=== PATIENT | female | born 2000 | race Hispanic/Latino ===

== ENCOUNTER 2025-05-06 02:35 | Inpatient (IN) | payer SELFPAY ==
[2025-05-06] VITALS (55 sets, daily range): BP systolic 95–144; BP diastolic 52–95; PULSE 52–105; RESP 12–20; TEMP 36.5–37.2; O2SAT 84–100
[2025-05-06] MEDS: Lactated Ringers 1,000 ML 999 ML IV (03:05)
--- NOTE | 2025-05-06 03:06 | HP.PCM.OB_ITS ---
HPI - General General Date of Admission: 05/06/25 HPI Narrative LAWRENCE RANGEL, is a 25 F @ 40.5 weeks with limited PNC, saw nereyda [place] approximately 5 times - did have lab work and Anatomy us done there- was seen earlier in day for ctx- told she was in early labor and to go [facility] as they have more services for her and baby when her contraction get to be 2-5 min. PFSH PFSH Medical History no medical history Allergy/AdvReac Type Severity Reaction Status Date / Time No Known Allergies Allergy Verified 05/06/25 02:33 Surgical History no surgical history NST FHR Rate Baby A Baseline: 135 Variability:: Moderate Accelerations:: 15 x 15 Decelerations:: None NST Reactive:: Yes FHR Category:: Category I Uterine Activity:: q4-5min Vital Signs Vital Signs Vital Signs: 05/06/25 02:29 05/06/25 02:29 05/06/25 02:29 Pulse Rate 56 L Blood Pressure 138/83 H BP Systolic 138 BP Diastolic 83 Pulse Ox 98 05/06/25 02:29 Pulse Rate 65 Blood Pressure BP Systolic BP Diastolic Pulse Ox Physical Exam Narrative limited bedside ultrasound: Vertex- no gross abnormalities noted VE: 7/80-90/-2 palpable Bag of water Const alert and oriented x3 General Appearance: cooperative HEENT normocephalic GI GI Narrative: Gravid, non tender to palpation. OB / External & Speculum: external exam normal Extremity normal to inspection Skin no rashes or lesions noted Neuro oriented x3 and CN's II-XII intact bilaterally Psych Appearance: grossly normal Labs Labs Labs: No Data to Display Assessment & Plan (1) Limited care: (2) 40 weeks gestation of : (3) Language barrier: PLAN: Plan Admit to L&D Montior FHR/TOCO Epidural if requested for pain Monitor VS Anticipate Labs state pending from Nereyda but we don't have PN labs present Co-mangement with Ekaterina Patricia CNM EFW <[id number]
[2025-05-06 03:21] LABS: Absolute Lymphocyte Count 2.06 X10^3/uL (0.83-4.51); Absolute Neutrophil Count 5.4 X10^3/uL (2.0-7.7); Basophil# 0.05 X10^3/uL; Basophil% 0.6 % (0-1); Eosinophil# 0.13 X10^3/uL; Eosinophils% 1.6 % (0-5); Hematocrit 35.8 % (37-47); Hemoglobin 11.3 g/dL (12.0-15.0); Lymphocyte # 2.06 X10^3/ul (0.83-4.51); Lymphocyte % 24.8 % (19-41); Mean Corp Hgb Conc 31.6 g/dL (32-36); Mean Platelet Vol. 10.6 fl (6.2-12.0); Monocyte# 0.57 X10^3/uL; Monocyte% 6.9 % (0-10); NRBC Flagged by Analyzer 0.5 % (0-5); Neutrophil # 5.35 X10^3/uL (2.7-7.7); Neutrophil % 64.5 % (47-70); Platelet Count 239 K/mm3 (150-450); RBC Distribution Width CV 19.2 % (11.6-14.6); RBC Distribution Width SD 50.5 fl (35.1-43.9); Red Blood Count 4.71 M/mm3 (4.2-5.4); White Blood Count 8.3 K/mm3 (4.4-11.0)
[2025-05-06] MEDS: Lactated Ringers 1,000 ML 200 ML IV ×2 (04:10→09:14)
[2025-05-06 04:12] LABS: Glucose 82 mg/dL (70-99)
[2025-05-06] MEDS: fentaNYL-bupivacaine (epidural) 100 ML BAG EPIDURAL (04:12)
[2025-05-06 04:19] LABS: Syphilis Antibodies Nonreactive (Nonreactive)
[2025-05-06 04:36] LABS: Group B Strep DNA By PCR Negative (Negative); Internal Control PASS; Probe Check PASS; Specimen Processing Control PASS
[2025-05-06 05:13] LABS: Hepatitis C Antibody Nonreactive (Nonreactive)
[2025-05-06 05:53] LABS: Hemoglobin A1c 5.8 % (<=5.6)
[2025-05-06 06:01] LABS: Mucous, Urine 0 SEEN /hpf (<or=2+); Red Blood Cells-Urine 0 SEEN /hpf (0-5)
[2025-05-06 06:03] LABS: Color, Urine Straw (Yellow); Glucose, Dipstick Normal (Normal); Ketone-Dipstick Negative (Negative); Leukocyte Esterase-Dipstick Negative /ul (Negative); Nitrite-Dipstick Negative (Negative); Occult Blood-Urine Negative /ul (Negative); Protein-Dipstick 30 mg/dl (Negative); Specific Gravity, Urine 1.005 (1.002-1.030); Urine Bilirubin Dipstick Negative (Negative); Urine Clarity Clear (Clear); Urine Urobilinogen Normal (Normal)
[2025-05-06 06:09] LABS: HIV Nonreactive (Nonreactive); Hepatitis B Surface Antigen Nonreactive (Nonreactive); Rubella IgG REAC (Nonreactive)
[2025-05-06 06:34] LABS: AST(SGOT) 36 U/L (<=31); Alanine Aminotransfer ALT/SGPT 28 U/L (<=34); Albumin, Serum 3.4 g/dL (3.5-5.0); Alkaline Phosphatase 457 U/L (35-104); Anion Gap 17 (5-15); BUN 10 mg/dL (4-19); BUN/Creat Ratio 14.7 RATIO (10-20); Calcium,Total 8.7 mg/dL (7.6-11.0); Chloride 105 mmol/L (98-108); Creatinine, Serum 0.65 mg/dL (0.70-1.20); EST Glomerular Filtration Rate 126 (>60); Globulin 3.6 g/dL (2.2-4.2); Glucose 82 mg/dL (70-99); Potassium 4.2 mmol/L (3.3-5.1); Protein, Total 7.1 g/dL (5.9-8.4); Sodium Level 135 mmol/L (133-145); Total Bilirubin < 0.15 mg/dL (0.00-1.30)
[2025-05-06 06:38] LABS: Bacteria RARE /hpf (None Seen); Squamous Epithelial Cells - UA 0-5 SEEN /hpf (5-10); White Blood Cells 0-5 SEEN /hpf (0-5)
[2025-05-06 06:45] LABS: Amphetamine Urine NEGATIVE (<1000 ng/mL); Barbiturate Urine NEGATIVE (< 200 ng/mL); Benzodiazepine Urine NEGATIVE (< 200 ng/mL); Buprenorphine Urine NEGATIVE (< 200 ng/mL); Cocaine Urine NEGATIVE (< 300 ng/mL); Fentanyl, Urine NEGATIVE; Methadone Urine NEGATIVE (< 300 ng/mL); Opiates Urine NEGATIVE (< 300 ng/mL); Oxycodone, Urine NEGATIVE (< 100 ng/mL); PCP Urine NEGATIVE (< 25 ng/mL); THC Urine NEGATIVE (< 50 ng/mL)
--- NOTE | 2025-05-06 08:10 | PCM.PN.OB ---
Subjective Subjective On hands and knees in bed, laboring down. Pushing for about an hour and no descent of head. Epidural for pain relief. Objective Data Objective Data Vital Signs: Vital Signs Temp Pulse Resp BP Pulse Ox 98.8 F 60 16 128/63 H 84 05/06/25 07:24 05/06/25 07:24 05/06/25 07:24 05/06/25 07:24 05/06/25 05:33 Intake & Output: Intake and Output for Last 24 Hours 05/04/25 05/05/25 05/06/25 23:59 23:59 23:59 Intake Total 1000 / 1000 Output Total 450 / 450 Balance 550 / 550 Lab / Micro Data 05/06/25 02:55 05/06/25 02:55 Labs: Laboratory Results - last 24 hr 05/06/25 02:55: WBC 8.3, RBC 4.71, Hgb 11.3 L, Hct 35.8 L, MCV 76.0 L, MCH 24.0 L, MCHC 31.6 L, RDW Std Deviation 50.5 H, RDW Coeff of Morena 19.2 H, Plt Count 239, MPV 10.6, Immature Gran % (Auto) 1.600 H, Neut % (Auto) 64.5, Lymph % (Auto) 24.8, [place] % (Auto) 6.9, Eos % (Auto) 1.6, Baso % (Auto) 0.6, Absolute Neuts (auto) 5.4, Absolute Lymphs (auto) 2.06, Nucleated RBC % 0.5, Sodium 135, Potassium 4.2, Chloride 105, Carbon Dioxide 14.0 L, Anion Gap 17 H, BUN 10, Creatinine 0.65 L, Est GFR (MDRD) Non-Af 126, BUN/Creatinine Ratio 14.7, Glucose 82 05/06/25 02:55: Glucose 82, Hemoglobin A1c 5.8 H, Calcium 8.7, Total Bilirubin < 0.15, AST 36 H, ALT 28, Alkaline Phosphatase 457 H, Total Protein 7.1, Albumin 3.4 L, Globulin 3.6, Albumin/Globulin Ratio 1.0, Syphilis Total Ab Nonreactive 05/06/25 02:55: Syphilis Total Ab Cancelled, Hep Bs Antigen Nonreactive, Hepatitis C Antibody Nonreactive, HIV 1&2 Antibody Nonreactive, Rubella IgG Antibody REAC, Blood Type O POSITIVE, Antibody Screen NEGATIVE 05/06/25 03:15: Group B Strep DNA Negative, Specimen Comment Not Reportable 05/06/25 05:50: Urine Color Straw, Urine Clarity Clear, Urine pH 7.0, Ur Specific [place] 1.005, Urine Protein 30 H, Urine Glucose (UA) Normal, Urine Ketones Negative, Urine Occult Blood Negative, Urine Nitrite Negative, Urine Bilirubin Negative, Urine Urobilinogen Normal, Ur Leukocyte Esterase Negative, Urine RBC 0 SEEN, Urine WBC 0-5 SEEN, Ur Squamous Epith Cells 0-5 SEEN, Urine Bacteria RARE, Urine Mucus 0 SEEN, Urine Opiates Screen NEGATIVE, U Buprenorphine Qual NEGATIVE, Ur Oxycodone Screen NEGATIVE, Urine Methadone Screen NEGATIVE, Urine Fentanyl Screen NEGATIVE, Ur Barbiturates Screen NEGATIVE, Ur Phencyclidine Scrn NEGATIVE, Ur Amphetamines Screen NEGATIVE, U Benzodiazepines Scrn NEGATIVE, Urine Cocaine Screen NEGATIVE, U Cannabinoids Screen NEGATIVE, Ur Drug Screen Comment Micro: Microbiology 05/06/25 05:50 Urine, Clean Catch Chlamydia/Neisseria (PCR) - Final Physical Exam Manual OB Exam: presentation cephalic, dilated 10, effaced 100, station -1 (0 to -1) and other AROM clear fluid NST FHR Rate Baby A Baseline: 135 Variability:: Moderate Accelerations:: None Decelerations:: Variable and Prolonged FHR Category:: Category II Uterine Activity:: every 2-4 minutes Assessment & Plan (1) Language barrier: (2) Limited care: (3) 40 weeks gestation of : (4) Category II heart rate tracing during labor and delivery: PLAN: Plan 1) Positional changes for prolonged heart rate decelerations 2) AROM clear fluid 3) FSE placed 4) Continue with expectant management and pushing efforts 5) notified of patient above assessment, status, and plan.
[2025-05-06] MEDS: LACTATED RINGERS 500 ML 999 ML IV (08:56)
--- NOTE | 2025-05-06 09:01 | PN.OBGYN_ITS ---
Subjective Subjective On left side pushing in bed, attempted to turn to right side and prolonged heart rate deceleration to 65. Position change to hands and knees with slow recovery. Objective Data Objective Data Vital Signs: Vital Signs Temp Pulse Resp BP Pulse Ox 98.7 F 63 16 108/52 L 97 05/06/25 08:28 05/06/25 08:33 05/06/25 08:28 05/06/25 08:33 05/06/25 08:28 Intake & Output: Intake and Output for Last 24 Hours 05/04/25 05/05/25 05/06/25 23:59 23:59 23:59 Intake Total 1000 / 1000 Output Total 450 / 450 Balance 550 / 550 Lab / Micro Data 05/06/25 02:55 05/06/25 02:55 Labs: Laboratory Results - last 24 hr 05/06/25 02:55: WBC 8.3, RBC 4.71, Hgb 11.3 L, Hct 35.8 L, MCV 76.0 L, MCH 24.0 L, MCHC 31.6 L, RDW Std Deviation 50.5 H, RDW Coeff of More[place] 19.2 H, Plt Count 239, MPV 10.6, Immature Gran % (Auto) 1.600 H, Neut % (Auto) 64.5, Lymph % (Auto) 24.8, [place] % (Auto) 6.9, Eos % (Auto) 1.6, Baso % (Auto) 0.6, Absolute Neuts (auto) 5.4, Absolute Lymphs (auto) 2.06, Nucleated RBC % 0.5, Sodium 135, Potassium 4.2, Chloride 105, Carbon Dioxide 14.0 L, Anion Gap 17 H, BUN 10, C reatinine 0.65 L, Est GFR (MDRD) Non-Af 126, BUN/Creatinine Ratio 14.7, Glucose 82 05/06/25 02:55: Glucose 82, Hemoglobin A1c 5.8 H, Calcium 8.7, Total Bilirubin < 0.15, AST 36 H, ALT 28, Alkaline Phosphatase 457 H, Total Protein 7.1, Albumin 3.4 L, Globulin 3.6, Albumin/Globulin Ratio 1.0, Syphilis Total Ab Nonreactive 05/06/25 02:55: Syphilis Total Ab Cancelled, Hep Bs Antigen Nonreactive, Hepatitis C Antibody Nonreactive, HIV 1&2 Antibody Nonreactive, Rubella IgG Antibody REAC, Blood Type O POSITIVE, Antibody Screen NEGATIVE 05/06/25 03:15: Group B Strep DNA Negative, Specimen Comment Not Reportable 05/06/25 05:50: Urine Color Straw, Urine Clarity Clear, Urine pH 7.0, Ur Specific [place] 1.005, Urine Protein 30 H, Urine Glucose (UA) Normal, Urine Ketones Negative, Urine Occult Blood Negative, Urine Nitrite Negative, Urine Bilirubin Negative, Urine Urobilinogen Normal, Ur Leukocyte Esterase Negative, Urine RBC 0 SEEN, Urine WBC 0-5 SEEN, Ur Squamous Epith Cells 0-5 SEEN, Urine Bacteria RARE, Urine Mucus 0 SEEN, Urine Creatinine 49.20, Urine Opiates Screen NEGATIVE, U Buprenorphine Qual NEGATIVE, Ur Oxycodone Screen NEGATIVE, Urine Methadone Screen NEGATIVE, Urine Fentanyl Screen NEGATIVE, Ur Barbiturates Screen NEGATIVE, Ur Phencyclidine Scrn NEGATIVE, Ur Amphetamines Screen NEGATIVE, U Benzodiazepines Scrn NEGATIVE, Urine Cocaine Screen NEGATIVE, U Cannabinoids Screen NEGATIVE, Ur Drug Screen Comment Micro: Microbiology 05/06/25 05:50 Urine, Clean Catch Chlamydia/Neisseria (PCR) - Final NST FHR Rate Baby A Baseline: 140 Variability:: Minimal Accelerations:: None Decelerations:: Variable and Prolonged FHR Category:: Category II Uterine Activity:: Every 2-3 minutes Assessment & Plan (1) Category II heart rate tracing during labor and delivery: (2) Language barrier: (3) 40 weeks gestation of : (4) Limited care: (5) Prolonged heart deceleration: (6) intolerance to labor, delivered, current hospitalization: PLAN: Plan 1) Consulted due to prolonged heart rate decelerations, intolerance of labor and unable to continue with positional changes. station remained at 0 to +1. Have been unable to get strong pushing efforts due to intolerance. Decision for primary section. 2) Azithromycin 500mg IVPB and Ancef 2g IVPB 3) TXA 1g 4) Anesthesia notified
[2025-05-06 09:21] LABS: Protein, Urine (Random) 25.4 mg/dL (0.0-12.0); Protein:Creat Ratio 516 mg/g CRE (0-200)
[2025-05-06] MEDS: Cefazolin 2 GM in 0.9% Normal Saline (100mL Bag) 100 ML IV (09:30)
[2025-05-06] MEDS: TRANEXAMIC ACID 1,000 MG in 0.9% Normal Saline (100mL Bag) 100 ML 440 MG IV (09:30)
[2025-05-06] MEDS: Azithromycin 500 MG in 0.9% Normal Saline (250mL Bag) 250 ML 250 MG IV (09:35)
--- NOTE | 2025-05-06 10:21 | EX.PCM.OBRPT ---
Maternal Data Information Gestational age: 40.5 weeks Operative Report (OB) Details Procedure Type: low transverse Date of Procedure: 05/06/25 Procedure Start Time: :42 Procedure Stop Time: 10:21 Time of Delivery: 09:45 Pre-Operative Diagnosis: Failure to Progress and Distress Post-Operative Diagnosis: Same as Pre-operative diagnosis Classification: ALYSSA Type of Anesthesia: Epidural Special Medications: TXA Antibiotic Given: Ancef 2 grams IV x1 and Zithromax 500 mg/5 mL X1 Drain: Lemus to straight drain Estimated Blood Loss: 700 Fluids Replaced: 1000 Findings Description of surgery: After informed consent was obtained the patient was taken the operating room. She was then placed in the supine position. She was prepped and draped in the normal sterile fashion. Epidural Anesthesia was found to be adequate. At this time a Pfannenstiel skin incision was made with a knife was carried down to the underlying layer of the fascia. The fascial incision was then extended laterally using bradley scissor. Attention was then turned to the superior aspect of the fascial edge was grasped with 2 straight [place] clamps tented up and the rectus muscle dissected off blunty. Rectus muscles were then in the midline bluntly and peritoneum was entered bluntly. Gentle opposing traction was placed. At this time the vesicouterine peritoneum was identified. Scalpel was used to make a uterine incision in a low transverse fashion. The uterus was then entered bluntly gentle opposing traction was placed to extend this incision. 's head was brought to the uterine incision was delivered atraumatically. was vigorous at delivery and delayed cord clamping approximately 30 seconds performed. Cord was clamped and cut infant was handed to the waiting nursery team. The Placenta was removed from the uterus. The uterus was then removed from the abdominal cavity. The uterus was cleared of all clots and debris using a lap. At this time the uterine incision was reapproximated using #1 Vicryl in a running locked fashion. Extension down the left side- repaired with 1-0 vicryl. Hemostasis was appreciated. Posterior cul-de-sac was then cleared of all clots and debris. Uterus was placed back in the abdominal cavity. Gutters were cleared of all clots and debris. Uterine incision was reevaluated and noted to be of good hemostasis. Hemoblast placed. At this time the peritoneum was grasped with Kellys reapproximated using #2 Vicryl suture in a running fashion. Fascia was then reapproximated using #1 Vicryl in a running fashion. Subcu layer was irrigated with NS, reapproximated with #2 0 plain gut suture in an interrupted fashion. Subcu layer was closed using 4-0 Monocryl in a subcu fashion. Dry sterile dressing was applied. Instrument lap needle count correct ?2. Anticipated normal postoperative course. Surgical findings: normal tubes and ovaries Presentation: Vertex Amniotic Membrane Rupture Type: Artificial Amniotic Fluid Description: Clear Placental Delivery Description: Expressed Placenta Disposition: [facility] Specimen collected: No Cord Vessel Description: 3 Vessels Cord Entanglement: None A gender: Male (1 minute): 9 (5 minute): 9 Delayed Cord Clamping: Yes Him Manager crop duster helper: Yes Him Manager: Gita Arauz Tasks completed by printer floor covering assistant: Opening & closing, Dissecting tissue and Retracting Additional administrative assistant?: No Complications Complications: No
[2025-05-06] MEDS: Oxytocin 15 Units/NS 250ml 15 UNITS/250 ML IV.SOLN 83 UNITS IV (10:35)
[2025-05-06] MEDS: Ketorolac 30 MG/ML Syringe IV ×3 (10:54→23:09)
[2025-05-06] MEDS: 0.9% Saline Lock 10 ML Syringe IV (10:54)
[2025-05-06] MEDS: Acetaminophen 500 MG Tablet 1000 MG PO ×3 (11:42→23:09)
[2025-05-06] MEDS: Lactated Ringers 1,000 ML 100 ML IV (14:10)
[2025-05-07 00:03] VITALS: BP 112/60; PULSE 63; RESP 16; TEMP 36.8; O2SAT 99
[2025-05-07 04:02] VITALS: BP 106/57; PULSE 77; RESP 18; TEMP 36.4; O2SAT 100
[2025-05-07] MEDS: Ketorolac 30 MG/ML Syringe IV (04:45)
[2025-05-07] MEDS: Acetaminophen 500 MG Tablet 1000 MG PO ×4 (04:46→23:04)
[2025-05-07 05:14] LABS: Hematocrit 26.4 % (37-47); Hemoglobin 8.5 g/dL (12.0-15.0); Mean Corp Hgb Conc 32.2 g/dL (32-36); Mean Corpuscular Hgb 24.5 pg (27.0-32.0); Mean Corpuscular Volume 76.1 fL (81-99); Mean Platelet Vol. 10.4 fl (6.2-12.0); Platelet Count 219 K/mm3 (150-450); RBC Distribution Width CV 19.3 % (11.6-14.6); RBC Distribution Width SD 50.7 fl (35.1-43.9); Red Blood Count 3.47 M/mm3 (4.2-5.4); White Blood Count 12.2 K/mm3 (4.4-11.0)
[2025-05-07 08:00] VITALS: BP 97/61; PULSE 99; RESP 16; TEMP 36.8; O2SAT 99
--- NOTE | 2025-05-07 08:52 | PN.OBGYN_ITS ---
Subjective Subjective Patient doing well. Having some abdominal pain that is controlled. Has not been ambulating much. Had dinner last night without N/V. No CP, lightheadedness, dizziness but not getting out of bed often. Objective Data Objective Data Vital Signs: Vital Signs Temp Pulse Resp BP Pulse Ox O2 Del Method 97.6 F L 77 18 106/57 L 100 Room Air 05/07/25 04:02 05/07/25 04:02 05/07/25 04:02 05/07/25 04:02 05/07/25 04:02 05/07/25 04:02 Oxygen Delivery Method Room Air Intake & Output: Intake and Output for Last 24 Hours 05/05/25 05/06/25 05/07/25 23:59 23:59 23:59 Intake Total 3650.00 / 3650.00 Output Total 2700 / 2700 Balance 950.00 / 950.00 Lab / Micro Data 05/07/25 04:50 05/06/25 02:55 Labs: Laboratory Results - last 24 hr 05/06/25 05:50: U Random Total Protein 25.4 H, Urine Creatinine 49.20, P rotein/Creatinin Ratio 516 H 05/07/25 04:50: WBC 12.2 H, RBC 3.47 L, Hgb 8.5 L, Hct 26.4 L, MCV 76.1 L, MCH 24.5 L, MCHC 32.2, RDW Std Deviation 50.7 H, RDW Coeff of Morena 19.3 H, Plt Count 219, MPV 10.4 Micro: Microbiology 05/06/25 05:50 Urine, Clean Catch Chlamydia/Neisseria (PCR) - Final Physical Exam Const alert and no apparent distress General Appearance: comfortable GI soft to palpation GI Narrative: ATTP, softly distended, dressing c/d/i, non acute Extremity normal to inspection and no calf tenderness Assessment & Plan (1) Delivery by section: PLAN: POD#1 s/p C/S. Doing well. Pain controlled. Encouraged ambulation today. Possible d/c home tomorrow. (2) Acute blood loss anemia: PLAN: Asymptomatic but not ambulating often. Repeat CBC in AM.
[2025-05-07] MEDS: Senna/Docusate Sodium 1 Tablet PO (11:06)
--- NOTE | 2025-05-07 11:43 | CASEMGMT ---
Social Work Assessment Labor and Delivery Unit Patient Address: [address] [place] [address] Phone number: [phone] Date of Referral: 05/06/25 Time of Referral:? 1147 Referred By: Dr. Tang Date of Intervention: ??05/07/25 Time of Intervention:? 1000 Reason for Referral:?resources Sw completed chart review and acknowledges social work consult. Alvarado presented to bedside and using iPad deaf interpreter, Geremias (ID: [id number]) sw introduced self to mother of baby (MOB- Sara) and father of baby (FOB- George Clemons). Sw explained reason for sw involvement and completed psychosocial assessment. History obtained from: medical records, MOB and FOB Household composition: MOB states that she and FOB live together with two of FOB's siblings. [place] baby to be included in residence when ready for discharge. Parents deny any problems with the home, stating that it is safe and secure. FOAndrea does report that the home is listed for sale by the biometrics consultant, if it sells they will have one month to find a new place to live. EDA states that he is not worried about this, as there are other places for them to rent that are safe and have enough space. Patient's parent/guardian status:? ?Parents report that they have been together for almost two years after meeting each other online. No concerns reported of domestic violence or intimate partner violence. baby is first baby for each parent. Medical History: ?OSWALDO is 25 year old female who is 1, para 0- now 1 following labor and delivery of . OSWALDO attended only 5 appointments during her with [facility]. When asked about this, she states that she only attended 5 because she is self pay and could not afford to go to more. Because of this concern, sw explained the importance of ensuring that their baby attends all of his scheduled dredge operator/ well check appointments. Parents express understanding. OSWALDO presented to hospital in active labor and required delivery for baby on 05/06/25 at 40 weeks gestation. Baby boy, named Geremias Alamo, was born weighing 6lb 15oz with apgars of 9 and 9 at one and five minutes of life, respectfully. OSWALDO is breast feeding and reports that it is going well. Parents have not yet decided on a dredge operator yet- but are aware they will need to do so prior to discharge. Educational Status:? Both parents attended school in [facility]. They deny problems with reading, learning or comprehension, however the language is a barrier to them. Financial Status: EDA is employed outside of the home. He works as a building construction superintendent. OSWALDO does not work and will be a stay at home mom with the baby. Supplies:?? All necessary baby supplies obtained, including: car seat, safe sleep space, clothes, diapers and wipes. Childcare/Caregiver(s):? MOB reports that she will be the primary caregiver to baby, along with FOB when he is not working. Transportation:?? FOAndrea states that he has work privileges to drive, and his brother has a vehicle that gets him to work and MOB to appointments. Programs/Agencies Involved: ???Parents deny being connected to any community agencies that assist them financially. Alvarado explained that alvarado would reach out to Maile Davis at [facility] to ensure that she gets connected with them prior to discharge to start the process of applying for Medicaid insurance for baby. Parents express understanding. Children Services/Legal Issues:??? No history of children services involvement, no issues or concerns warranting referral to be made at this time. Behavioral Health Issues: ??Mental Health History:?Both parents deny history of anxiety or depression, as well as any other mental health diagnoses. ?? Substance Use History: Parents deny substance use prior to and during . ?? Family History:??Parents deny family history of substance use or significant mental health diagnoses. ??? Drug Screens: ?Drug screen was negative on admission for all substances. Family/Social Stressors:? Parents deny any problems, stressors or concerns at this time. Support Systems: MOB states that she can talk to EDA, as well as the of the design architect at the [employer] that they attend on Sundays. Depression/Shaken Baby/Safe Sleeping:? Sw educated parents on signs and symptoms of baby blues and depression and anxiety. Parents express understanding. MOB states that she feels happy since delivering baby, and denies feeling sad. FOAndrea states that if she were to struggle during this period he would be able to recognize that and would know how to help her. Sw educated parents on shaken baby prevention and ABCs of safe sleep. Parents express understanding. ASSESSMENT:? MOB and baby admitted following labor and delivery. MOB delivered baby via unexpected and is staying one more day to help heal and get nursing help. MOB and FOB were observed to have a close relationship. MOB often sought support from FOB throughout conversation. MOB and FOB deny mental health history, and deny substance use. FOB is employed outside of the home and is the sole financial provider for the family (MOB and FOB). Parents report they have access to transportation and deny food insecurities. MOB and FOB have all necessary baby supplies for baby and natural supports in place. PLAN:? No other services requested or indicated. MOB and baby to be discharged when medically ready. Parents were provided literature regarding: signs and symptoms of baby blues and mood and anxiety disorders, Help Me Grow, shaken baby prevention, ABCs of safe sleep and a list of county resources that are available for them should any needs present themselves. Radha May, ACCOUNTING COORDINATOR, MANAGER TRANSPORTATION
[2025-05-07 14:00] VITALS: BP 133/67; PULSE 84; RESP 16; TEMP 36.6; O2SAT 100
[2025-05-07] MEDS: Ibuprofen 600 MG Tablet PO ×2 (16:55→23:04)
[2025-05-07 19:41] VITALS: BP 121/62; PULSE 81; RESP 16; TEMP 36.4; O2SAT 98
[2025-05-08 02:04] VITALS: BP 116/72; PULSE 97; RESP 16; TEMP 36.3; O2SAT 99
[2025-05-08] MEDS: Acetaminophen 500 MG Tablet 1000 MG PO ×2 (05:10→10:54)
[2025-05-08] MEDS: Ibuprofen 600 MG Tablet PO ×2 (05:10→10:55)
[2025-05-08 06:08] LABS: Hematocrit 25.3 % (37-47); Hemoglobin 8.3 g/dL (12.0-15.0); Mean Corp Hgb Conc 32.8 g/dL (32-36); Mean Corpuscular Hgb 24.9 pg (27.0-32.0); Mean Corpuscular Volume 75.7 fL (81-99); Platelet Count 245 K/mm3 (150-450); RBC Distribution Width CV 19.5 % (11.6-14.6); RBC Distribution Width SD 52.1 fl (35.1-43.9); Red Blood Count 3.34 M/mm3 (4.2-5.4); White Blood Count 12.8 K/mm3 (4.4-11.0)
[2025-05-08 08:00] VITALS: BP 108/58; PULSE 90; RESP 16; TEMP 36.4; O2SAT 98
[2025-05-08] MEDS: Senna/Docusate Sodium 1 Tablet PO (10:55)
--- NOTE | 2025-05-08 12:16 | PCM.DC.SUM ---
Providers Date of Admission: 05/06/25 Primary Care Physician: No Primary Care Phys Reason For Visit: LABOR Diagnosis Discharge Diagnosis (1) Delivery by section: Status: Acute (2) Acute blood loss anemia: Status: Acute Code(s): D62 - Acute posthemorrhagic anemia Medications at Discharge Home Medications acetaminophen 500 mg tablet (Acetaminophen Extra Strength) 1,000 mg (2 x 500 mg) PO Q6H PRN fever or pain 20 days #90 tabs 05/08/25 ferrous sulfate 325 mg (65 mg iron) tablet (FeroSul) 325 mg PO QODAY 60 days #30 tabs 05/08/25 ibuprofen 600 mg tablet 600 mg PO Q6H PRN Pain 20 days #60 TABLETS 05/08/25 oxycodone 5 mg tablet 5 mg PO Q8H PRN severe pain 7 days #10 TABLETS 05/08/25 Hospital Course Operations - (primary c/s) Procedures None Summary of Care Provided Minutes Spent on Discharge: 17 Hospital Course: 25-year-old 1 para 0 presented at 40-5/7 weeks in labor. She had limited care at an outside facility. She arrived on 05/06/2025 in labor. She progressed to complete and pushing and was able to push for about 2 hours but had prolonged decelerations and persistent category 2 heart tracing and that had not made significant descent. Decision was made on 05/06/2025 to proceed with primary section. A primary low-transverse section was performed on that day. EBL at time of surgery was 700 cc but patient had moderate acute blood loss anemia. Calculated blood loss at time of discharge was 1215 mL. This is consistent with mild intra operative and postoperative hemorrhage. Hemoglobin was stable on postoperative day #2 patient was ambulating urinating without difficulty. She was discharged home with routine instructions and prescriptions and given a prescription for p.o. iron. She was tolerating the anemia well. She is to take vitamins as well. She is to follow-up in the office In 1 week in 6 weeks or as needed. ABG / Lab / Microbiology Data 05/08/25 05:55 05/06/25 02:55 Laboratory: Laboratory Results - last 24 hr 05/08/25 05:55: WBC 12.8 H, RBC 3.34 L, Hgb 8.3 L, Hct 25.3 L, MCV 75.7 L, MCH 24.9 L, MCHC 32.8, RDW Std Deviation 52.1 H, RDW Coeff of Morena 19.5 H, Plt Count 245, MPV 10.0 Microbiology: Microbiology 05/06/25 05:50 Urine, Clean Catch Chlamydia/Neisseria (PCR) - Final D/C Instructions Discharge Diet: No restrictions May resume sexual activity in: 6-8 weeks Lifting Restrictions: 20 pounds Additional Activity Instructions: Nothing in the vagina for 6 weeks. You may return to work/school in 6 weeks. Call your doctor if your incision/area has: Continuous Slow Oozing, Sudden Increased Bleeding, Increased Pain/ Swelling, Increased Redness and Foul Smelling Discharge Call your doctor if you observe: Fever of 101 or Higher and Using more than 1 pad per hour (for 2 hours) Suture Line Care: Avoid Pulling/Pushing and Avoid Pinching/Bending Cleanse incision/area with: Keep Dressing Clean & Dry DC O2, CPAP, BIPAP Needs Home O2 Discharge instructions: No Please Follow Up With: Elvia Abrams MD When: Call to make an appointment for an incision check in 1-2 [phone]. You will need a post check in 6 weeks. Meaningful Use Info Meaningful Use Meaningful Use Diagnoses (Choose all that apply): None applicable Ischemic Stroke Statin Dosing Therapy Reference: STATIN DOSE THERAPY REFERENCE: * Patients > 75 years receive moderate or high dose statin therapy. * Patients 75 years or YOUNGER should receive HIGH intensity statin dose unless contraindicated. You will be required to document reason for non-treatment if statin daily dose does not meet guidelines. HIGH DOSE STATIN THERAPY DAILY Atorvastatin > than or = to 40 mg Rosuvastatin > than or = to 20 mg Amlodipine + Atorvastatin > than or = to 2.5/40 mg Ezetimibe + Simvastatin 10/80 mg Simvastatin 80mg Discharge Plan Admission Admit Date/Time: 05/06/25 02:35 Primary Reason for Your Visit: Labor and delivery Attending Provider: Elvia Abrams Primary Care Provider: Care Physician,No Primary Discharge Orders/Prescriptions Prescriptions: New ferrous sulfate [FeroSul] 325 mg (65 mg iron) tablet 325 mg PO QODAY 60 Days Qty: 30 1RF acetaminophen [Acetaminophen Extra Strength] 500 mg tablet 1,000 mg PO Q6H PRN (Reason: fever or pain) 20 Days Qty: 90 0RF ibuprofen 600 mg tablet 600 mg PO Q6H PRN (Reason: Pain) 20 Days Qty: 60 1RF oxycodone 5 mg tablet 5 mg PO Q8H PRN (Reason: severe pain) 7 Days Qty: 10 0RF Referrals / Follow Up: Care Physician,No Primary [Primary Care Provider] - Disposition Disposition (needs filled in before D/C Order can be placed): Home, Self Care
[2025-05-08 12:52] VITALS: BP 112/63; PULSE 71; RESP 16; TEMP 36.7; O2SAT 98
== END 2025-05-08 13:10 | disposition home or self-care (01) | DRG 787 ==
LOC: WPOUT 02:44 → WP 02:44
PROVIDERS: Obstetrics & Gynecology; Admitting Provider Obstetrics & Gynecology; Referring Provider Obstetrics & Gynecology; Visit Provider Obstetrics & Gynecology
DX: O62.8 Other abnormalities of forces of labor (principal); D62 Acute posthemorrhagic anemia; O76 Abnormality in fetal heart rate and rhythm complicating labor and delivery; O90.81 Anemia of the puerperium; Z37.0 Single live birth; Z3A.40 40 weeks gestation of pregnancy; Z60.3 Acculturation difficulty
CPT/HCPCS: 59025; 59050; 76815; 80053; 80307; 81001; 82570; 82947; 83036; 84156; 85025; 85027; 86703; 86762; 86780; 86803; 86850; 86900; 86901; 87081; 87340; 87491; 87591; 87653; 99221; A4216; G0378

== ENCOUNTER 2025-11-04 23:35 | Inpatient (IN) | payer SELFPAY ==
[2025-11-04 23:36] VITALS: BP 105/37; PULSE 58; RESP 16; TEMP 37.1; O2SAT 100; BMI 16.9
--- NOTE | 2025-11-04 23:57 | CT_ITS ---
PROCEDURE: ABDOMEN/PELVIS W IV CONT ONLY 11/05/2025 REASON FOR EXAM: RUQ PAIN TECHNIQUE: Procedure Code: [id number] Modality: CT Procedure: ABDOMEN/PELVIS W IV CONT ONLY Coronal and Sagittal reconstruction series were provided. CONTRAST: isovue [id number] VOLUME: 100 mL One or more dose reduction techniques were used (e.g., Automated exposure control, adjustment of the mA and/or kV according to patient size, use of iterative reconstruction technique. RADIATION DOSE SUMMARY: CTDI Vol 13.71 mGy DLP :713.64 mGycm COMPARISON: none FINDINGS: Average sized liver showing homogenous parenchymal attenuation with periportal hypodensities, possibly edema. No dilated intra or extra-hepatic biliary tracts. Gall bladder tiny calculi with minimal mural edema/thickening. Clear surrounding fat planes with no sizeable collections. Normal appearance of the pancreas with clear surrounding fat planes. The spleen, adrenal glands, aorta and IVC are unremarkable. Both kidneys are of average size and showing smooth outline with preserved parenchymal thickness. No renal calculi. No hydronephrosis. Distension of the urinary bladder showing no obvious masses. No obvious uterine or adnexal solid masses. Right ovarian small corpus luteum cyst. Minimal pelvic fluid, likely physiological. The appendix appears unremarkable. No right iliac inflammatory changes. Colonic fecal loading. Fluid distension of left side abdominal jejunal loop, possibly enteritis. Mild gastric pylorus and pyloroduodenal mural thickening, possibly gastritis. No free air. No obvious pathologically enlarged lymph nodes. Scanned osseous structures show no osseous destruction. Scanned lung bases show right lower lung lobe calcified pulmonary nodule. CT/Abdomen/Pelvis W IV Cont ONLY IMPRESSION: Hepatic periportal hypodensities, possibly edema. Advise clinico-laboratory cor relation to exclude the possibility of hepatitis. Gall bladder tiny calculi with minimal mural edema suggesting mild cholecystiti s. Colonic fecal loading. Fluid distension of left side abdominal jejunal loop, possibly enteritis. Mild gastric pylorus and pyloroduodenal mural thickening, possibly gastritis. Reading Location: [place] [id number]
[2025-11-05] VITALS (11 sets, daily range): BP systolic 88–116; BP diastolic 46–68; PULSE 58–71; RESP 16–18; TEMP 36.3–37.3; O2SAT 98–100; BMI 17.6
[2025-11-05] MEDS: 0.9% Normal Saline (1000mL) 1,000 ML 999 ML IV (00:05)
[2025-11-05] MEDS: Pantoprazole Sodium 40 MG in 0.9% Normal Saline (100mL MB+) 100 ML 300 MG IV (00:07)
[2025-11-05 00:10] LABS: Hematocrit 24.4 % (37-47); Hemoglobin 6.3 g/dL (12.0-15.0); Immature Granulocytes Count 0.020 X10^3/uL (0.0-0.0); Mean Corp Hgb Conc 25.8 g/dL (32-36); Mean Corpuscular Volume 61.8 fL (81-99); Mean Platelet Vol. 8.7 fl (6.2-12.0); NRBC Flagged by Analyzer 0 % (0-5); Platelet Count 570 K/mm3 (150-450); RBC Distribution Width CV 19.9 % (11.6-14.6); RBC Distribution Width SD 43.5 fl (35.1-43.9); Red Blood Count 3.95 M/mm3 (4.2-5.4); White Blood Count 6.3 K/mm3 (4.4-11.0)
[2025-11-05 00:16] LABS: Internal QC Validated? YES +Cl - CLEAR BKGD; Pregnancy, Serum, hCG Quali. NEGATIVE Negative
--- OUTSIDE RECORDS SUMMARY | 2025-11-05 00:26 | XMS RPT_ITS | CCD ---
Author Organization [facility] Care Team Providers Care Underwriting Service Representative Name Role Phone Care Physician, No Primary Primary Care Provider Unavailable Jose Alberto MOODY, Dr. Gan Admit Provider Jose Alberto MOODY, Dr. Gan Attending Provid er Dr. Elvia Abrams MD Referring Provid er Care Physician, No Primary Primary Care Unava ilable Elvia Abrams Admitting Unavail able Elvia Abrams Attending Unavail able Elvia Abrams Referring Unavail able Medications Current Medications Medication Drug Class(es) Dates Sig (Normalized) Sig (Original) acetaminophen 500 mg oral tablet (1 source) Start: 05-08-2025 take 2 tablets by mouth every six hours as needed for pain Acetaminophen (Acetaminophen Extra Strength) 500 mg tablet Active 1000 mg PO EVERY 6 HOURS as needed for fever or pain 90 20 May 08, 2025 12:00am ferrous sulfate 325 mg oral tablet (1 source) Start: 05-08-2025 take 1 tablet by mouth every other day Ferrous Sulfate (Ferosul) 325 mg (65 mg iron) tablet Active 325 mg PO EVERY OTHER DAY 30 60 May 08, 2025 12:00am ibuprofen 600 mg oral tablet (1 source) Nonsteroidal Anti-inflammatory Drug Start: 05-08-2025 take 1 tablet by mouth every six hours as needed for pain Ibuprofen 600 mg tablet Active 600 mg PO EVERY 6 HOURS as needed for Pain 60 20 May 08, 2025 12:00am oxyCODONE hydrochloride 5 mg oral tablet (1 source) Opioid Agonist Start: 05-08-2025 take 1 tablet by mouth every eight hours as needed for pain Oxycodone 5 mg tablet Active 5 mg PO Q8H as needed for severe pain 08 28May 08, 2025 Start: 05-08-2025 take 1 tablet by linnea th every eight hours as needed for pain Oxycodone 5 mg tablet Active 5 mg PO Q8H as needed for severe pain 08 28May 08, 2025 Problems Problem Classification Problem Date Documented Date Episodic/Chronic Acute posthemorrhagic anemia (2 sources) Acute posthemorrhagic anemia; Translations: [Acute posthemorrhagic anemia] 05-07-2025 Episodic Administrative/social admission (2 sources) Language barrier impedes ability to use [employer] resources; Translations: [Acculturation difficulty] 05-06-2025 Episodic distress and abnormal forces of labor (2 sources) Liveborn with labor distress; Translations: [Labor and delivery complicated by stress, unspecified] 05-06-2025 Episodic Other complications of ; puerperium affecting management of mother (2 sources) Deliveries by ; Translations: [ delivery, without mention of indication, unspecified as to episode of care or not applicable] 05-07-2025 Episodic Other complications of ; puerperium affecting management of mother (2 sources) Cardiotochogram finding; Translations: [Abnormality in heart rate and rhythm complicating labor and delivery] 05-06-2025 Episodic Other complications of (2 sources) Insufficient care; Translations: [Supervision of with insufficient care, unspecified trimester] 05-06-2025 Episodic Other and delivery including normal (1 source) Encounter for supervision of normal first , third trimester; Translations: [Encounter for supervision of normal first , third trimester] Onset: 06-19-2025 Episodic Residual codes; unclassified (2 sources) Gestation period, 40 weeks; Translations: [40 weeks gestation of ] 05-06-2025 Episodic Unclassified (2 sources) Prolonged heart deceleration 05-06-2025 Results Test Name Value Interpretation Reference Range Facility Rule out Beta Strep (Grp. B) on 05-09-2025 JOSE ELIAS Group B Beta Streptococcus is not isolated. Normal [facility] Comment on above: Performed By: #### M [id number] #### [facility] [address] [place], [place], [id number] CBC-Complete Blood Cnt No Di ffon 05-08-2025 Erythrocyte distribution width (RBC) [Ratio] 19.5 % High 11.6-14.6 [facility] Comment on above: Performed By: #### [id number] #### [facility] [address] [place], [address] Hematocrit (Bld) [Volume fraction] 25.3 % Low 37-47 [facility] Comment on above: Performed By: #### Karen [id number] #### [facility] [address] [place], [address] Hemoglobin (Bld) [Mass/Vol] 8.3 g/dL Low 12.0-15.0 [facility] Comment on above: Performed By: #### Karen [id number] #### [facility] [address] [place], [address] MCH (RBC) [Entitic mass] 24.9 pg Low 27.0-32.0 [facility] Comment on above: Performed By: #### Karen [id number] #### [facility] [address] [place], [address] MCHC (RBC) [Mass/Vol] 32.8 g/dL Normal 32-[address] [facility] Comment on above: Performed By: #### Karen [id number] #### [facility] [address] [place], [address] MCV (RBC) [Entitic vol] 75.7 fL Low 81-99 [facility] Comment on above: Performed By: #### Karen [id number] #### [facility] [address] [place], [address] Platelet mean volume (Bld) [Entitic vol] 10.0 fL Normal 6.2-12.0 [facility] Comment on above: Performed By: #### Karen [id number] #### [facility] [address] [place], [address] Platelets (Bld) [#/Vol] 245 10*3/uL Normal 150-450 [facility] Comment on above: Performed By: #### [id number] #### [facility] [address] [place], [address] RBC (Bld) [#/Vol] 3.34 10*6/uL Low 4.2-5.4 [facility] Comment on above: Performed By: #### M [id number] #### [facility] [address] [place], [address] RDW SD 52.1 fl High 35.1-43.9 [facility] Comment on above: Performed By: #### [id number] #### [facility] [address] [place], [address] WBC (Bld) [#/Vol] 12.8 10*3/uL High 4.4-11.0 [facility] Comment on above: Performed By: #### [id number] #### [facility] [address] [place], [address] Erythrocyte distribution wid th ratioOrdered By: Sherry Morales on 05-08-2025 Erythrocyte distribution width (RBC) [Ratio] 19.5 % High 11.6-14.6 [facility] Erythrocyte distribution wid th standard deviationOrdered By: Sherry Morales on 05-08-2025 Erythrocyte distribution width (RBC) [Ratio] 52.1 fl High 35.1-43.9 [facility] Hematocrit Auto (Bld) [Volum e fraction]Ordered By: Sherry Morales on 05-08-2025 Hematocrit (Bld) [Volume fraction] 25.3 % Low 37-47 [facility] Hemoglobin measurementOrdere d By: Sherry Morales on 05-08-2025 Hemoglobin (Bld) [Mass/Vol] 8.3 g/dL Low 12.0-15.0 [facility] MCV (mean corpuscular volume ) determinationOrdered By: Sherry Morales on 05-08-2025 MCV (RBC) [Entitic vol] 75.7 fL Low 81-99 [facility] Mean corpuscular hemoglobin (MCH) determinationOrdered By: Sherry Morales on 05-08-2025 MCH (RBC) [Entitic mass] 24.9 pg Low 27.0-32.0 [facility] Mean corpuscular hemoglobin concentration (MCHC) determinationOrdered By: Sherry Morales on 05-08-2025 MCHC (RBC) [Mass/Vol] 32.8 g/dL 32-[address] [facility] Mean platelet volume determi nationOrdered By: Sherry Morales on 05-08-2025 Platelet mean volume (Bld) [Entitic vol] 10.0 fL 6.2-12.0 [facility] Platelet countOrdered By: Sa ra Morales on 05-08-2025 Platelets (Bld) [#/Vol] 245 10*3/uL 150-450 [facility] RBC Auto (Bld) [#/Vol]Ordere d By: Sherry Morales on 05-08-2025 RBC (Bld) [#/Vol] 3.34 10*6/uL Low 4.2-5.4 [facility] White blood cell (WBC) count Ordered By: Sherry Morales on 05-08-2025 WBC (Bld) [#/Vol] 12.8 10*3/uL High 4.4-11.0 [facility] CBC-Complete Blood Cnt No Di ffon 05-07-2025 Erythrocyte distribution width (RBC) [Ratio] 19.3 % High 11.6-14.6 [facility] Comment on above: Order Comment: Comme nts: Day #1Reason for Laboratory Test Performed By: #### M [id number] #### [facility] [address] [place], [address] Hematocrit (Bld) [Volume fraction] 26.4 % Low 37-47 [facility] Comment on above: Order Comment: Comme nts: Day #1Reason for Laboratory Test Performed By: #### M [id number] #### [facility] [address] [place], [address] Hemoglobin (Bld) [Mass/Vol] 8.5 g/dL Low 12.0-15.0 [facility] Comment on above: Order Comment: Comme nts: Day #1Reason for Laboratory Test Performed By: #### [id number] #### [facility] [address] [place], [address] MCH (RBC) [Entitic mass] 24.5 pg Low 27.0-32.0 [facility] Comment on above: Order Comment: Comme nts: Day #1Reason for Laboratory Test Performed By: #### M [id number] #### [facility] [address] [place], [address] MCHC (RBC) [Mass/Vol] 32.2 g/dL Normal 32-[address] [facility] Comment on above: Order Comment: Comme nts: Day #1Reason for Laboratory Test Performed By: #### [id number] #### [facility] [address] [place], [address] MCV (RBC) [Entitic vol] 76.1 fL Low 81-99 [facility] Comment on above: Order Comment: Comme nts: Day #1Reason for Laboratory Test Performed By: #### [id number] #### [facility] [address] [place], [address] Platelet mean volume (Bld) [Entitic vol] 10.4 fL Normal 6.2-12.0 [facility] Comment on above: Order Comment: Comme nts: Day #1Reason for Laboratory Test Performed By: #### M [id number] #### [facility] [address] [place], [address] Platelets (Bld) [#/Vol] 219 10*3/uL Normal 150-450 [facility] Comment on above: Order Comment: Comme nts: Day #1Reason for Laboratory Test Performed By: #### M [id number] #### [facility] [address] [place], [address] RBC (Bld) [#/Vol] 3.47 10*6/uL Low 4.2-5.4 [facility] Comment on above: Order Comment: Comme nts: Day #1Reason for Laboratory Test Performed By: #### M [id number] #### [facility] [address] [place], [address] RDW SD 50.7 fl High 35.1-43.9 [facility] Comment on above: Order Comment: Comme nts: Day #1Reason for Laboratory Test Performed By: #### M [id number] #### [facility] [address] [place], [address] WBC (Bld) [#/Vol] 12.2 10*3/uL High 4.4-11.0 [facility] Comment on above: Order Comment: Comme nts: Day #1Reason for Laboratory Test Performed By: #### M 8200.220 #### [facility] [address] [place], [address] Absolute lymphocyte countOrd ered By: Elvia Abrams on 05-06-2025 Lymphocytes Auto (Unsp spec) [#/Vol] 2.06 10*3/uL 0.83-4.51 [facility] Absolute neutrophil countOrd ered By: Elvia Abrams on 05-06-2025 Neutrophils (Bld) [#/Vol] 5.4 10*3/uL 2.0-7.7 [facility] Amphetamine detection with 1 000 ng/mL as cutoffOrdered By: Elvia Tang on 05-06-2025 Amphetamines Screen method >1000 ng/mL Ql (U) Negative < 200 ng/mL [facility] Anion gap in Serum or Plasma Ordered By: Elvia Abrams on 05-06-2025 Anion gap [Moles/Vol] 17 mmol/L High 04-[address] [facility] Automated lymphocyte count a s percentage of total leukocytesOrdered By: Elvia Abrams on 05-06-2025 Lymphocytes/100 WBC Auto (Unsp spec) 24.8 % - [facility] BUN/creatinine ratioOrdered By: Elvia Abrams on 05-06-2025 Urea nitrogen/Creatinine [Mass ratio] 14.7 mg/mg 10- [facility] Basophil percentageOrdered B y: Elvia Abrams on 05-06-2025 Basophils/100 WBC (Bld) 0.6 % 0-1 [facility] Bilirubin Test strip Ql (U)O rdered By: Elvia Abrams on 05-06-2025 Bilirubin Ql (U) Negative Negative [facility] Bilirubin, totalOrdered By: Elvia Abrams on 05-06-2025 Bilirubin [Mass/Vol] mg/dL 0.00-1.30 [facility] CBC W/Diff, Automatedon 04-22 Absolute Neut Normal 2.0-7.7 [facility] Comment on above: Result Comment: Francine pickens via OM: Ordered Performed By: #### Karen 2694.9 #### [facility] [address] [place], [address] HCT Normal 37-47 [facility] Comment on above: Result Comment: Francine pickens via OM: Ordered Performed By: #### Karen 2695.5 #### [facility] [address] [place], [address] HGB Normal 12.0-15.0 [facility] Comment on above: Result Comment: Francine pickens via OM: Ordered Performed By: #### Karen [id number] #### [facility] [address] [place], [address] MCH Normal 27.0-32.0 [facility] Comment on above: Result Comment: Canc elled via OM: MD Ordered Performed By: #### M [id number] #### [facility] [address] [place], [address] MCHC Normal 32-36 [facility] Comment on above: Result Comment: Canc elled via OM: MD Ordered Performed By: #### M [id number] #### [facility] [address] [place], [address] MCV Normal 81-99 [facility] Comment on above: Result Comment: Canc elled via OM: MD Ordered Performed By: #### M [id number] #### [facility] [address] [place], [address] NEUT% Normal 47-70 [facility] Comment on above: Result Comment: Canc elled via OM: MD Ordered Performed By: #### M [id number] #### [facility] [address] [place], [address] PLT Normal 150-450 [facility] Comment on above: Result Comment: Canc elled via OM: MD Ordered Performed By: #### M [id number] #### [facility] [address] [place], [address] RBC Normal 4.2-5.4 [facility] Comment on above: Result Comment: Canc elled via OM: MD Ordered Performed By: #### M [id number] #### [facility] [address] [place], [address] RDW CV Normal 11.6-14.6 [facility] Comment on above: Result Comment: Canc elled via OM: MD Ordered Performed By: #### M [id number] #### [facility] [address] [place], [address] RDW SD Normal 35.1-43.9 [facility] Comment on above: Result Comment: Canc elled via OM: MD Ordered Performed By: #### M [id number] #### [facility] [address] [place], [address] WBC Normal 4.4-11.0 [facility] Comment on above: Result Comment: Canc elled via OM: MD Ordered Performed By: #### M [id number] #### [facility] [address] [place], [address] Absolute Lymph 2.06 X10 3/uL Normal 0.83-4.51 [facility] Comment on above: Performed By: #### Andrea KINCAID, L100.0100 #### [facility] [address] [place], [address] Absolute Neut 5.4 X10 3/uL Normal 2.0-7.7 [facility] Comment on above: Performed By: #### Andrea KINCAID, L100.0100 #### [facility] [address] [place], [address] Basophils/100 WBC (Bld) 0.6 % Normal 0-1 [facility] Comment on above: Performed By: #### Andrea KINCAID, L100.0100 #### [facility] [address] [place], [address] Eosinophils/100 WBC (Bld) 1.6 % Normal 0-5 [facility] Comment on above: Performed By: #### Andrea KINCAID, L100.0100 #### [facility] [address] [place], [address] Erythrocyte distribution width (RBC) [Ratio] 19.2 % High 11.6-14.6 [facility] Comment on above: Performed By: #### Andrea KINCAID, L100.0100 #### [facility] [address] [place], [address] Hematocrit (Bld) [Volume fraction] 35.8 % Low 37-47 [facility] Comment on above: Performed By: #### Andrea KINCAID, L100.0100 #### [facility] [address] [place], [address] Hemoglobin (Bld) [Mass/Vol] 11.3 g/dL Low 12.0-15.0 [facility] Comment on above: Performed By: #### Andrea KINCAID, L100.0100 #### [facility] [address] [place], [address] IG% 1.600 High 0.0-0.9 [facility] Comment on above: Result Comment: IG% - Immature Granulocytes (promyelocytes, myelocytes and metamyelocytes) > 1% indicates that a LEFT SHIFT is Present. Performed By: #### Andrea KINCAID, L100.0100 #### [facility] [address] [place], [address] Lymphocytes/100 WBC (Bld) 24.8 % Normal 19-41 [facility] Comment on above: Performed By: #### Andrea KINCAID, L100.0100 #### [facility] [address] [place], [address] MCH (RBC) [Entitic mass] 24.0 pg Low 27.0-32.0 [facility] Comment on above: Performed By: #### Andrea KINCAID, L100.0100 #### [facility] [address] [place], [address] MCHC (RBC) [Mass/Vol] 31.6 g/dL Low 32-[address] [facility] Comment on above: Performed By: #### Andrea KINCAID, L100.0100 #### [facility] [address] [place], [address] MCV (RBC) [Entitic vol] 76.0 fL Low 81-99 [facility] Comment on above: Performed By: #### Andrea KINCAID, L100.0100 #### [facility] [address] [place], [address] Monocytes/100 WBC (Bld) 6.9 % Normal 0-10 [facility] Comment on above: Performed By: #### Andrea KINCAID, L100.0100 #### [facility] [address] [place], [address] Neutrophils/100 WBC (Bld) 64.5 % Normal 47-70 [facility] Comment on above: Performed By: #### Andrea KINCAID, L100.0100 #### [facility] [address] [place], [address] Nucleated RBC (Bld) [#/Vol] 0.5 10*3/uL Normal 0-5 [facility] Comment on above: Performed By: #### Andrea KINCAID, L100.0100 #### [facility] [address] [place], [address] Platelet mean volume (Bld) [Entitic vol] 10.6 fL Normal 6.2-12.0 [facility] Comment on above: Performed By: #### Andrea KINCAID, L100.0100 #### [facility] [address] [place], [address] Platelets (Bld) [#/Vol] 239 10*3/uL Normal 150-450 [facility] Comment on above: Performed By: #### Andrea KINCAID, L100.0100 #### [facility] [address] [place], [address] RBC (Bld) [#/Vol] 4.71 10*6/uL Normal 4.2-5.4 [facility] Comment on above: Performed By: #### Andrea KINCAID, L100.0100 #### [facility] [address] [place], [address] RDW SD 50.5 fl High 35.1-43.9 [facility] Comment on above: Performed By: #### B TS, L100.0100 #### [facility] [address] [place], [address] WBC (Bld) [#/Vol] 8.3 10*3/uL Normal 4.4-11.0 [facility] Comment on above: Performed By: #### B TS, L100.0100 #### [facility] [address] [place], [address] Carbon dioxide, total [Moles /volume] in Central venous bloodOrdered By: Elvia Abrams on 05-06-2025 CO2 [Moles/Vol] 14.0 mmol/L Low 21.0-32.0 [facility] Chloride assayOrdered By: Lin on 05-06-2025 Chloride [Moles/Vol] 105 mmol/L 98-108 [facility] Comprehensive Metabolic Prof ilon 05-06-2025 Albumin [Mass/Vol] 3.4 g/dL Low 3.5-5.0 [facility] Comment on above: Order Comment: Reaso n for Exam: Performed By: #### M [id number] #### [facility] [address] [place], [address] Albumin/Globulin [Mass ratio] 1.0 {ratio} Normal 0.9-2.4 [facility] Comment on above: Order Comment: Reaso n for Exam: Performed By: #### M 8200.2202 #### [facility] [address] [place], [address] ALK PHOS 457 U/L High 35-104 [facility] Comment on above: Order Comment: Reaso n for Exam: Performed By: #### M 8200.220 #### [facility] [address] [place], [address] ALT [Catalytic activity/Vol] 28 U/L Normal <=34 [facility] Comment on above: Order Comment: Reaso n for Exam: Performed By: #### M [id number] #### [facility] [address] [place], [address] AST [Catalytic activity/Vol] 36 U/L High <=31 [facility] Comment on above: Order Comment: Reaso n for Exam: Performed By: #### M [id number] #### [facility] [address] [place], [address] BUN/CRE 14.7 RATIO Normal 10-20 [facility] Comment on above: Order Comment: Reaso n for Exam: Performed By: #### [id number] #### [facility] [address] [place], [address] Calcium [Mass/Vol] 8.7 mg/dL Normal 7.6-11.0 [facility] Comment on above: Order Comment: Reaso n for Exam: Performed By: #### M [id number] #### [facility] [address] [place], [address] Chloride [Moles/Vol] 105 mmol/L Normal 98-108 [facility] Comment on above: Order Comment: Reaso n for Exam: Performed By: #### M [id number] #### [facility] [address] [place], [address] CO2 [Moles/Vol] 14.0 mmol/L Low 21.0-32.0 [facility] Comment on above: Order Comment: Reaso n for Exam: Performed By: #### M 8200.2202 #### [facility] [address] [place], [address] Creatinine [Mass/Vol] 0.65 mg/dL Low 0.70-1.[address] [facility] Comment on above: Order Comment: Reaso n for Exam: Performed By: #### M 8200.2202 #### [facility] [address] [place], [address] GAP 17 High 5-15 [facility] Comment on above: Order Comment: Reaso n for Exam: Performed By: #### Karen [id number] #### [facility] [address] [place], [address] GFR/1.73 sq M.predicted among non-blacks MDRD (S/P/Bld) [Vol rate/Area] 126 mL/min/{1.73_m2} Normal >60 [facility] Comment on above: Order Comment: Reaso n for Exam: Result Comment: mL/m in/1.73m2 CKD-EPI Creatinine Equation (2020) Performed By: #### Karen [id number] #### [facility] [address] [place], [address] Globulin (S) [Mass/Vol] 3.6 g/dL Normal 2.2-4.2 [facility] Comment on above: Order Comment: Reaso n for Exam: Performed By: #### Karen [id number] #### [facility] [address] [place], [address] Glucose [Mass/Vol] 82 mg/dL Normal 70-99 [facility] Comment on above: Order Comment: Reaso n for Exam: Performed By: #### Karen [id number] #### [facility] [address] [place], [address] Potassium [Moles/Vol] 4.2 mmol/L Normal 3.3-5.[address] [facility] Comment on above: Order Comment: Reaso n for Exam: Performed By: #### Karen [id number] #### [facility] [address] [place], [address] Sodium [Moles/Vol] 135 mmol/L Normal 133-145 [facility] Comment on above: Order Comment: Reaso n for Exam: Performed By: #### M [id number] #### [facility] [address] [place], [address] T BILI < 0.15 Normal 0.00-1.30 [facility] Comment on above: Order Comment: Reaso n for Exam: Performed By: #### M 8200.2203 #### [facility] Laboratory [address] [place], [address] T PROT 7.1 g/dL Normal 5.9-8.4 [facility] Comment on above: Order Comment: Reaso n for Exam: Performed By: #### M 8200.220 #### [facility] Laboratory [address] [place], [address] Urea nitrogen [Mass/Vol] 10 mg/dL Normal 4-19 [facility] Comment on above: Order Comment: Reaso n for Exam: Performed By: #### M 8200.2203 #### [facility] Laboratory [address] [place], [address] Eosinophil percentageOrdered By: Elvia Abrams on 05-06-2025 Eosinophils/100 WBC (Bld) 1.6 % 0-5 [facility] Glomerular filtration rate ( GFR) estimation/1.73 sq m using serum, plasma, or whole bOrdered By: Elvia Abrams on 05-06-2025 GFR/1.73 sq M.predicted among non-blacks MDRD (S/P/Bld) [Vol rate/Area] 126 mL/min/{1.73_m2} >60 [facility] Comment on above: mL/min/1.73m2 CKD-EP I Creatinine Equation (2020) Glucoseon 05-06-2025 Glucose [Mass/Vol] 82 mg/dL Normal 70-99 [facility] Comment on above: Performed By: #### M 8200.2203 #### [facility] Laboratory [address] [place], [place], [address] Group B Strep DNA By PCRon 0 05-06-2025 GBS DNA ASSAY Negative Normal Negative [facility] Comment on above: Performed By: #### L 8200.0000 #### [facility] Laboratory [address] [place], [address] H AND P Exam - OB/GYNon 04-22 H&P Exam - VOCATIONAL REHABILITATION ADMINISTRATOR [facility] Medical Records Department [address] [place] [address] H P Exam - VOCATIONAL REHABILITATION ADMINISTRATOR 05/06/25 0306 MR#: [id number] Acct: [id number] Name: LAWRENCE ANDERS Rep #: [id number] : 2000 25 From: Elvia Abrams MD PCP: Care Physician,No Primary Status:ADM IN Location: [place] [id number] HPI - General General Date of Admission: 05/06/25 HPI Narrative LAWRENCE RANGEL, is a 25 F @ 40.5 weeks with limited PNC, saw [facility] approximately 5 times - did have lab work and Anatomy us done there- was seen earlier in day for ctx- told she was in early labor and to go to [facility] as they have more services for her and baby when her contraction get to be 2-5 min. PFSH PFSH Medical History no medical history Allergy/AdvReac Type Severity Reaction Status Date / Time No Known Allergies Allergy Verified 05/06/25 02:33 Surgical History no surgical history NST FHR Rate Baby A Baseline: 135 Variability:: Moderate Accelerations:: 15 x 15 Decelerations:: None NST Reactive:: Yes FHR Category:: Category I Uterine Activity:: q4-5min Vital Signs Vital Signs Vital Signs: 05/06/25 02:29 05/06/25 02:29 05/06/25 02:29 Pulse Rate 56 L Blood Pressure 138/83 H BP Systolic 138 BP Diastolic 83 Pulse Ox 98 05/06/25 02:29 Pulse Rate 65 Blood Pressure BP Systolic BP Diastolic Pulse Ox Physical Exam Narrative limited bedside ultrasound: Vertex- no gross abnormalities noted VE: 7/80-90/-2 palpable Bag of water Const alert and oriented x3 General Appearance: cooperative HEENT normocephalic GI GI Narrative: Gravid, non tender to palpation. OB / External Speculum: external exam normal Extremity normal to inspection Skin no rashes or lesions noted Neuro oriented x3 and CN's II-XII intact bilaterally Psych Appearance: grossly normal Labs Labs Labs: No Data to Display Assessment Plan (1) Limited care: (2) 40 weeks gestation of : (3) Language barrier: PLAN: Plan Admit to [facility] FHR/TOCO Epidural if requested for pain Monitor VS Anticipate Labs state pending from [place] but we don't have PN labs present Co-mangement with Ekaterina Patricia CNM EFW <4500G 05/06/25 0315 Cosigner Signature (if applicable): CC: Dr Elvia Abrams MD; No Primary Care Physician Signed Normal [facility] HIVon 05-06-2025 HIV Non-Reactive Normal Nonreactive [facility] Comment on above: Order Comment: Reaso n for Exam: Result Comment: Non- Reactive Reactive Repeatedly reactive samples must be confirmed according to CDC recommended confirmatory algorithms. The subresults for either HIVAG or AHIV can be used as an aid in the selection of the confirmation algorithm for reactive samples. Send out specimens with Reactive results to [facility] for confirmation. Order the HIV antibody detection and differentiation: lc#[id number] Performed By: #### L 509.4006, L3890.6102, L100.0100, L3890.6006, L501.0900, L500.4050, L400.0001, L501.9985 #### [facility] Laboratory [address] [place], [address] Hemoglobin A1con 05-06-2025 HbA1c (Bld) [Mass fraction] 5.8 % High <=5.6 [facility] Comment on above: Result Comment: Norm al < 5.7 % Prediabetic 5.7 - 6.4 % Diabetic >or= 6.5 % Please note range changes. Performed By: #### L 509.4006, L3890.6102, L100.0100, L3890.6006, L501.0900, L500.4050, L400.0001, L501.9985 #### [facility] Laboratory [address] [place], [address] Hemoglobin A1c percentageOrd ered By: Elvia Abrams on 05-06-2025 HbA1c (Bld) [Mass fraction] 5.8 % High <5.7 [facility] Comment on above: Normal < 5.7 % Predi abetic 5.7 - 6.4 % Diabetic >or= 6.5 % Please note range changes. Hepatitis C Antibodyon 05-06 Hepatitis C Ab Non-Reactive Normal Nonreactive [facility] Comment on above: Result Comment: Reac tive: Presumptive evidence of antibodies to HCV. Follow CDC recommendations for supplemental testing. Non-Reactive: Antibodies to HCV were not detected; does not exclude the possibility of exposure to HCV Reactive Results are presumptive evidence of antibodies to HCV. Follow CDC recommendations for supplemental testing. Order confirmation testing: HCV Quant by PCR testing - HCVPCR #[id number] Non Reactive: < 0.8 Equivocal: >/= 0.8 to < 1.0 Reactive: >/= 1.0 The CDC requires that a reactive/equivocal HCV antibody result be sent out for confirmation. HCV Quant by PCR testing. Performed By: #### M 8200.2203 #### [facility] Laboratory [address] [place], [place], [address] Immature granulocytes/100 WB C Auto (Bld)Ordered By: Elvia Abrams on 05-06-2025 Immature granulocytes/100 WBC (Bld) 1.600 % High 0.0-0.9 [facility] Comment on above: IG% - Immature Granu locytes (promyelocytes, myelocytes and metamyelocytes) > 1% indicates that a LEFT SHIFT is Present. Ketones Test strip Ql (U)Ord ered By: Elvia Abrams on 05-06-2025 Ketones Ql (U) Negative Negative [facility] L3890.6102on 05-06-2025 HEP B Surf Ag Non-Reactive Normal Nonreactive [facility] Comment on above: Order Comment: Reaso n for Exam: Result Comment: Reac tive: Presumptive evidence of HBV. Repeatedly reactive samples must be confirmed using a neutralization test ([employer] HBsAg Confirmatory Test) Non-Reactive: HBsAg not detected; does not exclude the possibility of exposure to HBV Performed By: #### M 8200.2203 #### [facility] Laboratory [address] [place], [place], [address] L509.4006on 05-06-2025 Rubella IgG REAC Normal Nonreactive [facility] Comment on above: Order Comment: Reaso n for Exam: Result Comment: Anti body Result: Interpretation Non-Reactive: Non-Immune Reactive: Immune The following results were obtained with the [employer] Rubella IgG assay. Results from assays of other manufacturers cannot be used interchangeably. Performed By: #### L 509.4006, L3890.6102, L100.0100, L3890.6006, L501.0900, L500.4050, L400.0001, L501.9985 #### [facility] Laboratory [address] [place], [place], [address] Laboratory - Chemistry and C hemistry - challengeOrdered By: Elvia Tang on 05-06-2025 AST [Catalytic activity/Vol] 36 U/L High <32 [facility] Laboratory - Microbiology an d Antimicrobial susceptibilityOrdered By: Elvia Abrams on 05-06-2025 HBV surface Ag Ql (S) Non-Reactive Nonreactive [facility] Comment on above: Reactive: Presumptiv e evidence of HBV. Repeatedly reactive samples must be confirmed using a neutralization test ([employer] HBsAg Confirmatory Test)Non-Reactive: HBsAg not detected; does not exclude the possibility of exposure to HBV M8200.2203on 05-06-2025 M8200.2203 Pending Chlamydia Trachomatis PCR NEGATIVE for Chlamydia trachomatis N. gonorrhoeae PCR Negative for N. gonorrhoeae Normal [facility] Comment on above: Performed By: #### M 8200.2203 #### [facility] Laboratory [address] [place], [address] Microscopic analysis of urin e for red blood cells (RBC)Ordered By: Elvia Abrams on 05-06-2025 Microscopic analysis of urine for red blood cells (RBC) 0 SEEN /hpf 0-5 [facility] Monocyte percentageOrdered B y: Elvia Abrams on 05-06-2025 Monocytes/100 WBC (Bld) 6.9 % 0-10 [facility] Mucus LM Ql (Urine sed)Order ed By: Elvia Abrams on 05-06-2025 Mucus Ql (Urine sed) 0 SEEN /hpf [facility] Neutrophil percentageOrdered By: Elvia Abrams on 05-06-2025 Neutrophils/100 WBC (Bld) 64.5 % 47-70 [facility] Nitrite Test strip Ql (U)Ord ered By: Elvia Abrams on 05-06-2025 Nitrite Ql (U) Negative Negative [facility] No Panel InformationOrdered By: Elvia Abrams on 05-06-2025 Urine Buprenorphine Qualitative Negative < 200 ng/mL [facility] Urine Drug Screen Comment [facility] Comment on above: CONFIRMATORY TESTING FOR ALL POSITIVE URINE DRUG SCREENRESULTS WILL ONLY BE SENT OUT UPON PHYSICIAN ORDER. VISTA Urine Drug Screen methods provide only preliminaryanalytical test results. A more specific alternate chemicalmethod must be used in order to obtain a confirmedanalytical result. Gas chromatography/mass spectrometery(GC/MS) is the preferred confirmatory method. Clinicalconsideration and professional judgement should be appliedto any drug of abuse test result, particularly whenpreliminary positive results are used. URINE TCA TESTING MUST BE ORDERED SEPARATELY. USE TESTMNEMONIC: [facility] Urine Oxycodone Screen Negative < 100 ng/mL [facility] Specimen Comment (Misc) Not Reportable [facility] Comment on above: Single swab collecti on for GBS testing is not recommended.Dual source collection provides optimal results. HIV (1&2) Antibody Non-Reactive Nonreactive [facility] Comment on above: Non-ReactiveReactive Repeatedly reactive samples must be confirmed according to CDC recommended confirmatory algorithms. The subresults for either HIVAG or AHIV can be used as an aid in the selection of the confirmation algorithm for reactive samples.Send out specimens with Reactive results to [facility] for confirmation.Order the HIV antibody detection and differentiation: #[id number] Nucleated red blood cell per centageOrdered By: Elvia Abrams on 05-06-2025 Nucleated RBC/100 WBC (Bld) [Ratio] 0.5 % 0-5 [facility] Operative Reporton Operative Report [facility] Medical Records Department [address] [place] [address] Operative Report 05/06/25 1021 MR#: [id number] Acct: [id number] Name: LAWRENCE ANDERS Rep #: [id number] : 2000 25 From: Elvia Abrams MD PCP: Care Physician,No Primary Status:ADM IN Location: [id number] Maternal Data Information Gestational age: 40.5 weeks Operative Report (OB) Details Procedure Type: low transverse Date of Procedure: 05/06/25 Procedure Start Time: 09:42 Procedure Stop Time: 10:21 Time of Delivery: 09:45 Pre-Operative Diagnosis: Failure to Progress and Distress Post-Operative Diagnosis: Same as Pre-operative diagnosis Classification: ALYSSA Type of Anesthesia: Epidural Special Medications: TXA Antibiotic Given: Ancef 2 grams IV x1 and Zithromax 500 mg/5 mL X1 Drain: Lmeus to straight drain Estimated Blood Loss: 700 Fluids Replaced: 1000 Findings Description of surgery: After informed consent was obtained the patient was taken the operating room. She was then placed in the supine position. She was prepped and draped in the normal sterile fashion. Epidural Anesthesia was found to be adequate. At this time a Pfannenstiel skin incision was made with a knife was carried down to the underlying layer of the fascia. The fascial incision was then extended laterally using bradley scissor. Attention was then turned to the superior aspect of the fascial edge was grasped with 2 straight Yulissa clamps tented up and the rectus muscle dissected off blunty. Rectus muscles were then in the midline bluntly and peritoneum was entered bluntly. Gentle opposing traction was placed. At this time the vesicouterine peritoneum was identified. Scalpel was used to make a uterine incision in a low transverse fashion. The uterus was then entered bluntly gentle opposing traction was placed to extend this incision. 's head was brought to the uterine incision was delivered atraumatically. was vigorous at delivery and delayed cord clamping approximately 30 seconds performed. Cord was clamped and cut infant was handed to the waiting nursery team. The Placenta was removed from the uterus. The uterus was then removed from the abdominal cavity. The uterus was cleared of all clots and debris using a lap. At this time the uterine incision was reapproximated using #1 Vicryl in a running locked fashion. Extension down the left side- repaired with 1-0 vicryl. Hemostasis was appreciated. Posterior cul-de-sac was then cleared of all clots and debris. Uterus was placed back in the abdominal cavity. Gutters were cleared of all clots and debris. Uterine incision was reevaluated and noted to be of good hemostasis. Hemoblast placed. At this time the peritoneum was grasped with Kellys reapproximated using #2 Vicryl suture in a running fashion. Fascia was then reapproximated using #1 Vicryl in a running fashion. Subcu layer was irrigated with NS, reapproximated with #2 0 plain gut suture in an interrupted fashion. Subcu layer was closed using 4-0 Monocryl in a subcu fashion. Dry sterile dressing was applied. Instrument lap needle count correct ???2. Anticipated normal postoperative course. 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 Primary indication for cs was for non reassuring status, cat 2 tracing, prolong decelerations. 05/06/25 1033 Cosigner Signature (if applicable): cc: Dr Elvia Abrams MD; No Primary Care Physician * Signed Normal [facility] Potassium measurement (mass/ volume)Ordered By: Elvia Abrams on 05-06-2025 Potassium (Unsp spec) [Mass/Vol] 4.2 mmol/L 3.3-5.1 [facility] Protein Test strip Ql (U)Ord ered By: Elvia Abrams on 05-06-2025 Protein Ql (U) 30 mg/dl High Negative [facility] Protein+Creatinine Ratio,Uri neon 05-06-2025 PROT:CRE RATIO 516 mg/g CRE High 0-200 [facility] Comment on above: Performed By: #### M 8200.220 #### [facility] Laboratory [address] [place], [place], [address] Protein (U) [Mass/Vol] 25.4 mg/dL High 0.0-12.0 [facility] Comment on above: Performed By: #### M 8200.2202 #### [facility] Laboratory [address] [place], [place], [address] Quantitative urine opiates m easurementOrdered By: Elvia Abrams on 05-06-2025 Opiates Ql (U) Negative < 300 ng/mL [facility] Random urine creatinine clinton urement (mass/volume)Ordered By: Elvia Tang on 05-06-2025 Creatinine Unsp time (U) [Mass/Vol] 49.20 mg/dL 28.00-217.00 [facility] Screening urine fentanyl mary surementOrdered By: Elvia Abrams on 05-06-2025 fentaNYL Screen Ql (U) Negative [facility] Serum creatinine measurement (mass/volume)Ordered By: Elvia Abrams on 05-06-2025 Creatinine [Mass/Vol] 0.65 mg/dL Low 0.70-1.[address] [facility] Serum globulin measurementOr dered By: Elvia Abrams on 05-06-2025 Globulin (S) [Mass/Vol] 3.6 g/dL 2.2-4.2 [facility] Serum glucose measurement (m ass/volume)Ordered By: Elvia Abrams on 05-06-2025 Glucose [Mass/Vol] 82 mg/dL 70-99 [facility] Serum or plasma alanine goodwin otransferase (ALT) measurementOrdered By: Elvia Abrams on 05-06-2025 ALT [Catalytic activity/Vol] 28 U/L <35 [facility] Serum or plasma albumin clinton urement (mass/volume)Ordered By: Elvia Tang on 05-06-2025 Albumin [Mass/Vol] 3.4 g/dL Low 3.5-5.0 [facility] Serum or plasma albumin/glob ulin mass ratioOrdered By: Elvia Abrams on 05-06-2025 Albumin/Globulin [Mass ratio] 1.0 {ratio} 0.9-2.4 [facility] Serum or plasma alkaline nazia sphatase measurementOrdered By: Elvia Tang on 05-06-2025 ALP [Catalytic activity/Vol] 457 U/L High 35-104 [facility] Serum or plasma calcium clinton urement (mass/volume)Ordered By: Elvia Tang on 05-06-2025 Calcium [Mass/Vol] 8.7 mg/dL 7.6-11.0 [facility] Serum or plasma urea nitroge n measurement (mass/volume)Ordered By: Elvia Abrams on 05-06-2025 Urea nitrogen [Mass/Vol] 10 mg/dL 4-19 [facility] Sodium levelOrdered By: Yamileth Abrams on 05-06-2025 Sodium [Moles/Vol] 135 mmol/L 133-145 [facility] Squamous epithelial cells de tection in urine sediment by light microscopyOrdered By: Elvia Abrams on 05-06-2025 Epithelial cells.squamous LM Ql (Urine sed) 0-5 SEEN /hpf 5-10 [facility] Syphilis Antibodieson 2024 Syphilis Abs Non-Reactive Normal Nonreactive [facility] Comment on above: Performed By: #### L 509.8002 #### [facility] Laboratory [address] [place], [address] Total proteinOrdered By: Kapadia on 05-06-2025 Protein [Mass/Vol] 7.1 g/dL 5.9-8.4 [facility] Type AND Screenon 05-06-2025 Ab SCREEN GEL Negative Normal [facility] Comment on above: Order Comment: Labor Performed By: #### B TS, L100.0100 #### [facility] Laboratory [address] [place], [place], [id number] Ur Drg Scn w/Rflx AMPH Confi rmon 05-06-2025 Amphetamines Ql (U) Negative Normal <1000 ng/mL [facility] Comment on above: Performed By: #### M 7739.3220 #### [facility] Laboratory [address] [place], [place], [address] BARBITIURATES Negative Normal < 200 ng/mL [facility] Comment on above: Performed By: #### M 1718.2202 #### [facility] Laboratory [address] [place], [place], [address] BENZODIAZIPINE Negative Normal < 200 ng/mL [facility] Comment on above: Performed By: #### M 8200.2202 #### [facility] Laboratory [address] [place], [address] BUP Ur Drug Scr Negative Normal < 200 ng/mL [facility] Comment on above: Performed By: #### M 8200.2202 #### [facility] Laboratory [address] [place], [address] Cocaine Ql (U) Negative Normal < 300 ng/mL [facility] Comment on above: Performed By: #### M 8200.2202 #### [facility] Laboratory [address] [place], [address] Fentanyl Negative Normal [facility] Comment on above: Performed By: #### M 8200.2202 #### [facility] Laboratory [address] [place], [address] Methadone Ql (U) Negative Normal < 300 ng/mL [facility] Comment on above: Performed By: #### M 8200.2202 #### [facility] Laboratory [address] [place], [address] Opiates Ql (U) Negative Normal < 300 ng/mL [facility] Comment on above: Performed By: #### M 8200.2202 #### [facility] Laboratory [address] [place], [address] OXYCODONE Negative Normal < 100 ng/mL [facility] Comment on above: Performed By: #### M 8200.2202 #### [facility] Laboratory [address] [place], [address] PCP Negative Normal < 25 ng/mL [facility] Comment on above: Performed By: #### M 8200.2202 #### [facility] Laboratory [address] [place], [address] THC Negative Normal < 50 ng/mL [facility] Comment on above: Performed By: #### M 8200.220 #### [facility] Laboratory [address] [place], [address] Urinalysis, Completeon 05-06 BACTERIA RARE Normal None Seen [facility] Comment on above: Order Comment: COLLE CTOR TO SPECIFY Performed By: #### M 8200.220 #### [facility] Laboratory [address] [place], [address] EPI,SQUAMOUS 0-5 SEEN Normal 5-10 [facility] Comment on above: Order Comment: COLLE CTOR TO SPECIFY Performed By: #### M 8200.220 #### [facility] Laboratory [address] [place], [address] WBC 0-5 SEEN Normal 0-5 [facility] Comment on above: Order Comment: COLLE CTOR TO SPECIFY Performed By: #### 8200.2202 #### [facility] Laboratory [address] [place], [address] BILIRUBIN URINE Negative Normal Negative [facility] Comment on above: Order Comment: KIRA CTOR TO SPECIFY Performed By: #### M 8200.2202 #### [facility] Laboratory [address] [place], [address] Clarity (U) Clear Normal Clear [facility] Comment on above: Order Comment: COLLE CTOR TO SPECIFY Performed By: #### M 8200.2202 #### [facility] Laboratory [address] [place], [address] Color (U) Straw Normal Yellow [facility] Comment on above: Order Comment: COLLE CTOR TO SPECIFY Performed By: #### M 8200.2202 #### [facility] Laboratory [address] [place], [address] GLUCOSE, UR Normal Normal Normal [facility] Comment on above: Order Comment: COLLE CTOR TO SPECIFY Performed By: #### M 8200.2202 #### [facility] [address] [place], [address] KETONE UR Negative Normal Negative [facility] Comment on above: Order Comment: KIRA CTOR TO SPECIFY Performed By: #### 8200.2202 #### [facility] Laboratory [address] [place], [address] LEUK ESTERASE Negative Normal Negative [facility] Comment on above: Order Comment: KIRA CTOR TO SPECIFY Performed By: #### 8200.2202 #### [facility] Laboratory [address] [place], [address] Nitrite Ql (U) Negative Normal Negative [facility] Comment on above: Order Comment: KIRA CTOR TO SPECIFY Performed By: #### M 8200.2202 #### [facility] Laboratory [address] [place], [address] OCCULT BLOOD-UR Negative Normal Negative [facility] Comment on above: Order Comment: KIRA CTOR TO SPECIFY Performed By: #### 8200.2202 #### [facility] Laboratory [address] [place], [address] pH UR 7.0 Normal 5.0 - 8.0 [facility] Comment on above: Order Comment: KIRA CTOR TO SPECIFY Performed By: #### 8200.2202 #### [facility] Laboratory [address] [place], [address] PROT DIPSTX 30 mg/dl Abnormal Negative [facility] Comment on above: Order Comment: KIRA CTOR TO SPECIFY Performed By: #### M 8200.2202 #### [facility] [facility] [address] [place], [address] SP.GR. DIPSTX 1.005 Normal 1.002-1.030 [facility] Comment on above: Order Comment: KIRA CTOR TO SPECIFY Performed By: #### [id number] #### [facility] [address] [place], [place], [id number] UROBILI Normal Normal Normal [facility] Comment on above: Order Comment: KIRA CTOR TO SPECIFY Performed By: #### M [id number] #### [facility] [address] [place], [place], [id number] Mucus Ql (Urine sed) 0 SEEN Normal [facility] Comment on above: Order Comment: KIRA CTOR TO SPECIFY Performed By: #### M [id number] #### [facility] [address] [place], [place], [id number] RBC 0 SEEN Normal 0-5 [facility] Comment on above: Order Comment: KIRA CTOR TO SPECIFY Performed By: #### M [id number] #### [facility] [address] [place], [place], [id number] Urine amphetamine measuremen tOrdered By: Elvia Abrams on 05-06-2025 Amphetamines Ql (U) Negative <1000 ng/mL [facility] Urine benzodiazepine levelOr dered By: Elvia Abrams on 05-06-2025 Benzodiazepines Ql (U) Negative < 200 ng/mL [facility] Urine clarityOrdered By: Oshea-Kitty on 05-06-2025 Clarity (U) Clear Clear [facility] Urine cocaine levelOrdered B y: Elvia Abrams on 05-06-2025 Cocaine Ql (U) Negative < 300 ng/mL [facility] Urine color determinationOrd ered By: Elvia Abrams on 05-06-2025 Color (U) Straw Yellow [facility] Urine uzkcm-[id number] abinol (THC) measurementOrdered By: Elvia Abrams on 05-06-2025 Cannabinoids Screen Ql (U) Negative < 50 ng/mL [facility] Urine glucose detectionOrder ed By: Elvia Abrams on 05-06-2025 Glucose Ql (U) Normal mg/dl Normal [facility] Urine leukocyte esterase det ection by dipstickOrdered By: Elvia Tang on 05-06-2025 Leukocyte esterase Test strip Ql (U) Negative Negative [facility] Urine pHOrdered By: Elvia Clark on 05-06-2025 pH (U) 7.0 [pH] 5.0 - 8.0 [facility] Urine phencyclidine (PCP) de tectionOrdered By: Elvia Abrams on 05-06-2025 Phencyclidine Ql (U) Negative < 25 ng/mL [facility] Urine protein measurement (m ass/volume)Ordered By: Elvia Abrams on 05-06-2025 Protein (U) [Mass/Vol] 25.4 mg/dL High 0.0-12.0 [facility] Urine protein/creatinine mas s ratioOrdered By: Elvia Abrams on 05-06-2025 Protein/Creatinine (U) [Mass ratio] 516 mg/g CRE High 0-200 [facility] Urine sediment bacteria coun t by microscopy (number/high power field)Ordered By: Elvia Abrams on 05-06-2025 Bacteria LM.HPF (Urine sed) [#/Area] RARE /hpf None Seen [facility] Urine specific gravity measu rementOrdered By: Elvia Abrams on 05-06-2025 Specific gravity (U) [Rel density] 1.005 1.002-1.030 [facility] Urine urobilinogen measureme ntOrdered By: Elvia Abrams on 05-06-2025 Urobilinogen Ql (U) Normal mg/dl Normal [facility] White blood cell countOrdere d By: Elvia Abrams on 05-06-2025 White blood cell count 0-5 SEEN /hpf 0-5 [facility] Vital Signs Date Time Vital Sign Value Performing Clinician Faci lity 05-08-2025 12:52-0400 Body temperature 98 [degF] No Primary Care Physician [facility] 05-08-2025 12:52-0400 Diastolic blood pressure 63 mm[Hg] No Primary Care Physician [facility] 05-08-2025 12:52-0400 Heart rate 71 /min No Primary Care Physician [facility] 05-08-2025 12:52-0400 Respiratory rate 16 /min No Primary Care Physician [facility] 05-08-2025 12:52-0400 SaO2% (BldA) [Mass fraction] 98 % No Primary Care Physician [facility] 05-08-2025 12:52-0400 Systolic blood pressure 112 mm[Hg] No Primary Care Physician [facility] 05-06-2025 02:49-0400 Body height 154.94 cm No Primary Care Physician [facility] Encounters Encounter Date Encounter Type Care Provider Facility Start: 05-06-2025 End: 05-08-2025 Evaluation and management of inpatient Dr Elvia Abrams [facility] Work Phone: Procedures Date Procedure Procedure Detail Performing Clinician Start: 05-06-2025 End: 05-06-2025 Polymerase chain reaction analysis No Primary Care Physician Start: 05-06-2025 Methadone measurement, urine No Primary Care Physician Start: 05-06-2025 Urnls dip stick/tabl et reagent auto microscopy No Primary Care Physician Start: 05-06-2025 Bacterial nucleic acid assay No Primary Care Physician Start: 05-06-2025 Hepatitis C antibody measurement No Primary Care Physician Comment on above: Reactive: Presumptiv e evidence of antibodies to HCV. Follow CDC recommendations for supplemental testing.Non-Reactive: Antibodies to HCV were not detected; does not exclude the possibility of exposure to HCVReactive Results are presumptive evidence of antibodies to HCV. Follow CDC recommendations for supplemental testing.Order confirmation testing: HCV Quant by PCR testing - HCVPCR #[id number] Non Reactive: < 0.8 Equivocal: >/= 0.8 to < 1.0 Reactive: >/= 1.0The CDC requires that a reactive/equivocal HCV antibody result be sent out for confirmation. HCV Quant by PCR testing. Start: 05-06-2025 Rubella IgG measurement No Primary Care Physician Comment on above: Antibody Result: Int erpretationNon-Reactive: Non- ImmuneReactive: ImmuneThe following results were obtained with the [employer] Rubella IgG assay. Results from assays of other manufacturers cannot be used interchangeably. Start: 05-06-2025 Serologic test for syphilis No Primary Care Physician Plan of Treatment Date Care Activity Detail Author Start: 05-08-2025 Patient discharge [facility] Start: 05-07-2025 Application of abdominal corset [facility] Start: 05-06-2025 Group B Streptococcus Culture Group B Streptococcus Culture [facility] Start: 05-06-2025 Application of abdominal corset [facility] Start: 05-06-2025 Administration of medication [facility] Start: 05-06-2025 Ambulation therapy management [facility] Start: 05-06-2025 Application of device [facility] Start: 05-06-2025 Application of intermittent pneumatic compression device [facility] Start: 05-06-2025 Assessment of risk of venous thromboembolism [facility] Start: 05-06-2025 Catheterization of vein [facility] Start: 05-06-2025 Deep breathing and coughing exercises [facility] Start: 05-06-2025 Exercises [facility] Start: 05-06-2025 Measuring intake and output [facility] Start: 05-06-2025 Notification of physician [facility] Start: 05-06-2025 Procedure discontinued [facility] Start: 05-06-2025 Provision of activity privileges [facility] Start: 05-06-2025 Skin care [facility] Start: 05-06-2025 Vital signs measurements [facility] Start: 05-06-2025 Wound care [facility] Start: 05-06-2025 End: 05-06-2025 [facility] Start: 05-06-2025 Admission procedure [facility] Start: 05-06-2025 Consultation [facility] Beta-hemolytic Streptococcus culture [facility] Patient Education After a Matt an Delivery (WP) [facility] Work Phone: Patient referral [facility] Work Phone: Payers Date Payer Category Payer Medicaid [id number] 2025 Self-pay Unknown [id number] Social History Date Type Detail Facility Patient currentl y [facility] Start: 05-06-2025 Tobacco smoking stat us NHIS Never smoked tobacco (finding) [facility] Start: 2000 Sex Assigned At Female [facility] Goals Date Patient Goal Desired Activity /State Clinical Notes 05-06-2025 to 05-08-2025 Note Date & Type Note Facility 05-08-2025 Discharge summary [facility] 05-08-2025 Note [facility] Medical Records Department [address] [place] [address] Discharge Summary 05/08/25 1216 MR#: [id number] Acct: [id number] Name: LAWRENCE ANDERS Rep #: [id number] : 2000 25 From: Kristin Gamboa MD PCP: Care Physician,No Primary Status:ADM IN Location: [place] [address] Providers Date of Admission: 05/06/25 Primary Care Physician: No Primary Care Phys Reason For Visit: LABOR Diagnosis Discharge Diagnosis (1) Delivery by section: Status: Acute (2) Acute blood loss anemia: Status: Acute Code(s): D62 - Acute posthemorrhagic anemia Medications at Discharge Home Medications acetaminophen 500 mg tablet (Acetaminophen Extra Strength) 1,000 mg (2 x 500 mg) PO Q6H PRN fever or pain 20 days #90 tabs 05/08/25 ferrous sulfate 325 mg (65 mg iron) tablet (FeroSul) 325 mg PO QODAY 60 days #30 tabs 05/08/25 ibuprofen 600 mg tablet 600 mg PO Q6H PRN Pain 20 days #60 TABLETS 05/08/25 oxycodone 5 mg tablet 5 mg PO Q8H PRN severe pain 7 days #10 TABLETS 05/08/25 Hospital Course Operations - (primary c/s) Procedures None Summary of Care Provided Minutes Spent on Discharge: 17 Hospital Course: 25-year-old 1 para 0 presented at 40-5/7 weeks in labor. She had limited care at an outside facility. She arrived on 05/06/2025 in labor. She progressed to complete and pushing and was able to push for about 2 hours but had prolonged decelerations and persistent category 2 heart tracing and that had not made significant descent. Decision was made on 05/06/2025 to proceed with primary section. A primary low-transverse section was performed on that day. EBL at time of surgery was 700 cc but patient had moderate acute blood loss anemia. Calculated blood loss at time of discharge was 1215 mL. This is consistent with mild intra operative and postoperative hemorrhage. Hemoglobin was stable on postoperative day #2 patient was ambulating urinating without difficulty. She was discharged home with routine instructions and prescriptions and given a prescription for p.o. iron. She was tolerating the anemia well. She is to take vitamins as well. She is to follow-up in the office In 1 week in 6 weeks or as needed. ABG / Lab / Microbiology Data 05/08/25 05:55 05/06/25 02:55 Laboratory: Laboratory Results - last 24 hr 05/08/25 05:55: WBC 12.8 H, RBC 3.34 L, Hgb 8.3 L, Hct 25.3 L, MCV 75.7 L, MCH 24.9 L, MCHC 32.8, R DW Std Deviation 52.1 H, RDW Coeff of Morena 19.5 H, Plt Count 245, MPV 10.0 Microbiology: Microbiology 05/06/25 05:50 Urine, Clean Catch Chlamydia/Neisseria (PCR) - Final D/C Instructions Discharge Diet: No restrictions May resume sexual activity in: 6-8 weeks Lifting Restrictions: 20 pounds Additional Activity Instructions: Nothing in the vagina for 6 weeks. You may return to work/school in 6 weeks. Call your doctor if your incision/area has: Continuous Slow Oozing, Sudden Increased Bleeding, Increased Pain/ Swelling, Increased Redness and Foul Smelling Discharge Call your doctor if you observe: Fever of 101 or Higher and Using more than 1 pad per hour (for 2 hours) Suture Line Care: Avoid Pulling/Pushing and Avoid Pinching/Bending Cleanse incision/area with: Keep Dressing Clean Dry DC O2, CPAP, BIPAP Needs Home O2 Discharge instructions: No Please Follow Up With: Elvia Abrams MD When: Call to make an appointment for an incision check in 1-2 [phone]. You will need a post check in 6 weeks. Meaningful Use Info Meaningful Use Meaningful Use Diagnoses (Choose all that apply): None applicable Ischemic Stroke Statin Dosing Therapy Reference: STATIN DOSE THERAPY REFERENCE: * Patients > 75 years receive moderate or high dose statin therapy. * Patients 75 years or YOUNGER should receive HIGH intensity statin dose unless contraindicated. You will be required to document reason for non-treatment if statin daily dose does not meet guidelines. HIGH DOSE STATIN THERAPY DAILY Atorvastatin > than or = to 40 mg Rosuvastatin > than or = to 20 mg Amlodipine + Atorvastatin > than or = to 2.5/40 mg Ezetimibe + Simvastatin 10/80 mg Simvastatin 80mg Discharge Plan Admission Admit Date/Time: 05/06/25 02:35 Primary Reason for Your Visit: Labor and delivery Attending Provider: Elvia Abrams Primary Care Provider: Care Physician,No Primary Discharge Orders/Prescriptions Prescriptions: New ferrous sulfate [FeroSul] 325 mg (65 mg iron) tablet 325 mg PO QODAY 60 Days Qty: 30 1RF acetaminophen [Acetaminophen Extra Strength] 500 mg tablet 1,000 mg PO Q6H PRN (Reason: fever or pain) 20 Days Qty: 90 0RF ibuprofen 600 mg tablet 600 mg PO Q6H PRN (Reason: Pain) 20 Days Qty: 60 1RF oxycodone 5 (more content not included)... [facility] 05-07-2025 Progress note Note Date/Time May 07, 2025 8:54 am [facility] Medical Records Department [address] [place] [address] Progress Note - OBGYN 05/07/25 0852 MR#: [id number] Acct: [id number] Name: NENO CLAIRELAWRENCE TUTTLE Rep #:[id number] : 2000 25 From: Sherry Morales DO PCP: Care Physician,No Primary Status :ADM IN Location: [id number] Subjective Subjective Patient doing well. Having some abdominal pain that is controlled. Has not been ambulating much. Had dinner last night without N/V. No CP, lightheadedness, dizziness but not getting out of bed often. Objective Data Objective Data Vital Signs: Vital Signs Temp Pulse Resp BP Pulse Ox O2 Del Method 97.6 F L 77 18 106/57 L 100 Room Air 05/07/25 04:02 05/07/25 04:02 05/07/25 04:02 05/07/25 04:02 05/07/25 04:02 05/07/25 04:02 Oxygen Delivery Method Room Air Intake & Output: Intake and Output for Last 24 Hours 05/05/25 05/06/25 05/07/25 23:59 23:59 23:59 Intake Total 3650.00 / 3650.00 Output Total 2700 / 2700 Balance 950.00 / 950.00 Lab / Micro Data 05/07/25 04:50 05/06/25 02:55 Labs: Laboratory Results - last 24 hr 05/06/25 05:50: U Random Total Protein 25.4 H, Urine Creatinine 49.20, Protein/Creatinin Ratio 516 H 05/07/25 04:50: WBC 12.2 H, RBC 3.47 L, Hgb 8.5 L, Hct 26.4 L, MCV 76.1 L, MCH 24.5 L, MCHC 32.2, RDW Std Deviation 50.7 H, RDW Coeff of Morena 19.3 H, Plt Count 219, MPV 10.4 Micro: Microbiology 05/06/25 05:50 Urine, Clean Catch Chlamydia/Neisseria (PCR) - Final Physical Exam Const alert and no apparent distress General Appearance: comfortable GI soft to palpation GI Narrative: ATTP, softly distended, dressing c/d/i, non acute Extremity normal to inspection and no calf tenderness Assessment & Plan (1) Delivery by section: PLAN: POD#1 s/p C/S. Doing well. Pain controlled. Encouraged ambulation today. Possible d/c home tomorrow. (2) Acute blood loss anemia: PLAN: Asymptomatic but not ambulating often. Repeat CBC in AM. 05/07/25 0854 <Electronically signed by Sherry Morales DO> Cosigner Signature (if applicable): CC: ~ Signed [facility] Work Phone: 1([phone] 935-255506-16-2025 Progress note [facility] Medical Records Department [address] [place] [address] Progress Note - OBGYN 05/07/25 0852 MR#: [id number] Acct: [id number] Name: LAWRENCE ANDERS Rep #:[id number] : 2000 25 From: Sherry Morales DO PCP: Care Physician,No Primary Status :ADM IN Location: [id number] Subjective Subjective Patient doing well. Having some abdominal pain that is controlled. Has not been ambulating much. Had dinner last night without N/V. No CP, lightheadedness, dizziness but not getting out of bed often. Objective Data Objective Data Vital Signs: Vital Signs Temp Pulse Resp BP Pulse Ox O2 Del Method 97.6 F L 77 18 106/57 L 100 Room Air 05/07/25 04:02 05/07/25 04:02 05/07/25 04:02 05/07/25 04:02 05/07/25 04:02 05/07/25 04:02 Oxygen Delivery Method Room Air Intake & Output: Intake and Output for Last 24 Hours 05/05/25 05/06/25 05/07/25 23:59 23:59 23:59 Intake Total 3650.00 / 3650.00 Output Total 2700 / 2700 Balance 950.00 / 950.00 Lab / Micro Data 05/07/25 04:50 05/06/25 02:55 Labs: Laboratory Results - last 24 hr 05/06/25 05:50: U Random Total Protein 25.4 H, Urine Creatinine 49.20, Protein/Creatinin Ratio 516 H 05/07/25 04:50: WBC 12.2 H, RBC 3.47 L, Hgb 8.5 L, Hct 26.4 L, MCV 76.1 L, MCH 24.5 L, MCHC 32.2, RDW Std Deviation 50.7 H, RDW Coeff of Morena 19.3 H, Plt Count 219, MPV 10.4 Micro: Microbiology 05/06/25 05:50 Urine, Clean Catch Chlamydia/Neisseria (PCR) - Final Physical Exam Const alert and no apparent distress General Appearance: comfortable GI soft to palpation GI Narrative: ATTP, softly distended, dressing c/d/i, non acute Extremity normal to inspection and no calf tenderness Assessment & Plan (1) Delivery by section: PLAN: POD#1 s/p C/S. Doing well. Pain controlled. Encouraged ambulation today. Possible d/c home tomorrow. (2) Acute blood loss anemia: PLAN: Asymptomatic but not ambulating often. Repeat CBC in AM. 05/07/25 0854 Cosigner Signature (if applicable): CC: ~ Signed [facility]06-15-2025 Progress note Author Ekaterina Patricia [facility] Note Date/Time May 06, 2025 9:06 am [facility] Medical Records Department [address] [place] [address] Progress Note - OBGYN 05/06/25 0901 MR#: [id number] Acct: [id number] Name: LAWRENCE ANDERS Rep #:[id number] : 2000 25 From: Ekaterina QUINTERO PCP: Care Physician,No Primary Status :ADM IN Location: [place] [id number] Subjective Subjective On left side pushing in bed, attempted to turn to right side and prolonged fetalheart rate deceleration to 65. Position change to hands and knees with slow recovery. Objective Data Objective Data Vital Signs: Vital Signs Temp Pulse Resp BP Pulse Ox 98.7 F 63 16 108/52 L 97 05/06/25 08:28 05/06/25 08:33 05/06/25 08:28 05/06/25 08:33 05/06/25 08:28 Intake & Output: Intake and Output for Last 24 Hours 05/04/25 05/05/25 05/06/25 23:59 23:59 23:59 Intake Total 1000 / 1000 Output Total 450 / 450 Balance 550 / 550 Lab / Micro Data 05/06/25 02:55 05/06/25 02:55 Labs: Laboratory Results - last 24 hr 05/06/25 02:55: WBC 8.3, RBC 4.71, Hgb 11.3 L, Hct 35.8 L, MCV 76.0 L, MCH 24.0 L, MCHC 31.6 L, RDW Std Deviation 50.5 H, RDW Coeff of Morena 19.2 H, Plt Count 239, MPV 10.6, Immature Gran % (Auto) 1.600 H, Neut % (Auto) 64.5, Lymph % (Auto) 24.8, Love % (Auto) 6.9, Eos % (Auto) 1.6, Baso % (Auto) 0.6, Absolute Neuts (auto) 5.4, Absolute Lymphs (auto) 2.06, Nucleated RBC % 0.5, Sodium 135, Potassium 4.2, Chloride 105, Carbon Dioxide 14.0 L, Anion Gap 17 H, BUN 10, Creatinine 0.65 L, Est GFR (MDRD) Non-Af 126, BUN/Creatinine Ratio 14.7, Glucose 82 05/06/25 02:55: Glucose 82, Hemoglobin A1c 5.8 H, Calcium 8.7, Total Bilirubin <0.15, AST 36 H, ALT 28, Alkaline Phosphatase 457 H, Total Protein 7.1, Albumin 3.4 L, Globulin 3.6, Albumin/Globulin Ratio 1.0, Syphilis Total Ab Nonreactive 05/06/25 02:55: Syphilis Total Ab Cancelled, Hep Bs Antigen Nonreactive, Hepatitis C Antibody Nonreactive, HIV 1&2 Antibody Nonreactive, Rubella IgG Antibody REAC, Blood Type O POSITIVE, Antibody Screen NEGATIVE 05/06/25 03:15: Group B Strep DNA Negative, Specimen Comment Not Reportable 05/06/25 05:50: Urine Color Straw, Urine Clarity Clear, Urine pH 7.0, Ur Specific [place] 1.005, Urine Protein 30 H, Urine Glucose (UA) Normal, Urine Ketones Negative, Urine Occult Blood Negative, Urine Nitrite Negative, Urine Bilirubin Negative, Urine Urobilinogen Normal, Ur Leukocyte Esterase Negative, Urine RBC 0 SEEN, Urine WBC 0-5 SEEN, Ur Squamous Epith Cells 0-5 SEEN, Urine Bacteria RARE, Urine Mucus 0 SEEN, Urine Creatinine 49.20, Urine Opiates Screen NEGATIVE, U Buprenorphine Qual NEGATIVE, Ur Oxycodone Screen NEGATIVE, Urine Methadone Screen NEGATIVE, Urine Fentanyl Screen NEGATIVE, Ur Barbiturates Screen NEGATIVE, Ur Phencyclidine Scrn NEGATIVE, Ur Amphetamines Screen NEGATIVE, U Benzodiazepines Scrn NEGATIVE, Urine Cocaine Screen NEGATIVE, U Cannabinoids Screen NEGATIVE, Ur Drug Screen Comment Micro: Microbiology 05/06/25 05:50 Urine, Clean Catch Chlamydia/Neisseria (PCR) - Final NST FHR Rate Baby A Baseline: 140 Variability:: Minimal Accelerations:: None Decelerations:: Variable and Prolonged FHR Category:: Category II Uterine Activity:: Every 2-3 minutes Assessment & Plan (1) Category II heart rate tracing during labor and delivery: (2) Language barrier: (3) 40 weeks gestation of : (4) Limited care: (5) Prolonged heart deceleration: (6) intolerance to labor, delivered, current hospitalization: PLAN: Plan 1) Consulted due to prolonged heart rate decelerations, intolerance of labor and unable to continue with positional changes. station remained at 0 to +1. Have been unable to get strong pushing efforts due to intolerance. Decision for primary section. 2) Azithromycin 500mg IVPB and Ancef 2g IVPB 3) TXA 1g 4) Anesthesia notified 05/06/25905 <Electronically signed by Ekaterina Patricia CNM> Cosigner Signature (if applicable): CC: ~ Signed [facility] Work Phone: [phone] 408-408006-15-2025 Procedure note [facility] Medical Records Department [address] [place] [address] Operative Report 05/06/25 1021 MR#: [id number] Acct: [id number] Name: NENO CLAIRELAWRENCE MORSE Rep #:[id number] : 2000 25 From: Elvia Tang MD PCP: Care Physician,No Primary Status :ADM IN Location: [address] Maternal Data Information Gestational age: 40.5 weeks Operative Report (OB) Details Procedure Type: low transverse Date of Procedure: 05/06/25 Procedure Start Time: 09:42 Procedure Stop Time: 10:21 Time of Delivery: 09:45 Pre-Operative Diagnosis: Failure to Progress and Distress Post-Operative Diagnosis: Same as Pre-operative diagnosis Classification: ALYSSA Type of Anesthesia: Epidural Special Medications: TXA Antibiotic Given: Ancef 2 grams IV x1 and Zithromax 500 mg/5 mL X1 Drain: Lemus to straight drain Estimated Blood Loss: 700 Fluids Replaced: 1000 Findings Description of surgery: After informed consent was obtained the patient was taken the operating room. She was then placed in the supine position. She was prepped and draped in the normal sterile fashion. Epidural Anesthesiawas found to be adequate. At this time a Pfannenstiel skin incision was made with a knife was carried down to the underlying layer of the fascia. The fascial incision was then extended laterally using bradley scissor. Attention was then turned to the superior aspect of the fascial edge was grasped with 2 straight Yulissa clamps tented up and the rectus muscle dissected off blunty. Rectus muscles were then in the midline bluntly and peritoneum was entered bluntly. Gentle opposing traction was placed. At this time the vesicouterine peritoneum was identified. Scalpel was used to make a uterine incision in a low transverse fashion. The uterus wasthen entered bluntly gentle opposing traction was placed to extend this incision. Infant's head was brought to the uterine incision was delivered atraumatically. Infant was vigorous at delivery and delayed cord clamping approximately 30 seconds performed. Cord was clamped and cut infant was handedto the waiting nursery team. The Placenta was removed from the uterus. The uterus was then removed from the abdominal cavity. The uterus was cleared of all clots and debris using a lap. At this time the uterine incision was reapproximated using #1 Vicryl in a running locked fashion. Extension down the left side- repaired with 1-0 vicryl. Hemostasis was appreciated. Posterior cul-de-sac was then cleared of all clots and debris. Uterus was placed back in the abdominal cavity. Gutters were cleared of all clots and debris. Uterine incision was reevaluated and noted to be of good hemostasis. Hemoblast placed. At this time the peritoneum was grasped with Kellys reapproximated using #2 Vicryl suture in a running fashion. Fascia was then reapproximated using #1 Vicryl in a running fashion. Subcu layer was irrigated with NS, reapproximated with #2 0 plain gut suture in an interrupted fashion. Subcu layer was closed using 4-0 Monocryl in a subcu fashion. Dry sterile dressing was applied. Instrument lap needle count correct ?2. Anticipated normal postoperative course. 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 Primary indication for cs was for non reassuring status, cat 2 tracing, prolong decelerations. 05/06/25 1033 Cosigner Signature (if applicable): cc: Dr Elvia Abrams MD; No Primary Care Physician ~* Signed [facility]06-15-2025 Progress note Author Ekaterina Patricia [facility] Note Date/Time May 06, 2025 8:15 am [facility] Medical Records Department [address] [place] [address] Progress Note - OBGYN 05/06/25 0810 MR#: [id number] Acct: [id number] Name: NENO CLAIRELAWRENCE TUTTLE Rep #:[id number] : 2000 25 From: Ekaterina QUINTERO PCP: Care Physician,No Primary Status :ADM IN Location: [id number] Subjective Subjective On hands and knees in bed, laboring down. Pushing for about an hour and no descent of head. Epidural for pain relief. Objective Data Objective Data Vital Signs: Vital Signs Temp Pulse Resp BP Pulse Ox 98.8 F 60 16 128/63 H 84 05/06/25 07:24 05/06/25 07:24 05/06/25 07:24 05/06/25 07:24 05/06/25 05:33 Intake & Output: Intake and Output for Last 24 Hours 05/04/25 05/05/25 05/06/25 23:59 23:59 23:59 Intake Total 1000 / 1000 Output Total 450 / 450 Balance 550 / 550 Lab / Micro Data 05/06/25 02:55 05/06/25 02:55 Labs: Laboratory Results - last 24 hr 05/06/25 02:55: WBC 8.3, RBC 4.71, Hgb 11.3 L, Hct 35.8 L, MCV 76.0 L, MCH 24.0 L, MCHC 31.6 L, RDW Std Deviation 50.5 H, RDW Coeff of Morena 19.2 H, Plt Count 239, MPV 10.6, Immature Gran % (Auto) 1.600 H, Neut % (Auto) 64.5, Lymph % (Auto) 24.8, Love % (Auto) 6.9, Eos % (Auto) 1.6, Baso % (Auto) 0.6, Absolute Neuts (auto) 5.4, Absolute Lymphs (auto) 2.06, Nucleated RBC % 0.5, Sodium 135, Potassium 4.2, Chloride 105, Carbon Dioxide 14.0 L, Anion Gap 17 H, BUN 10, Creatinine 0.65 L, Est GFR (MDRD) Non-Af 126, BUN/Creatinine Ratio 14.7, Glucose 82 05/06/25 02:55: Glucose 82, Hemoglobin A1c 5.8 H, Calcium 8.7, Total Bilirubin <0.15, AST 36 H, ALT 28, Alkaline Phosphatase 457 H, Total Protein 7.1, Albumin 3.4 L, Globulin 3.6, Albumin/Globulin Ratio 1.0, Syphilis Total Ab Nonreactive 05/06/25 02:55: Syphilis Total Ab Cancelled, Hep Bs Antigen Nonreactive, Hepatitis C Antibody Nonreactive, HIV 1&2 Antibody Nonreactive, Rubella IgG Antibody REAC, Blood Type O POSITIVE, Antibody Screen NEGATIVE 05/06/25 03:15: Group B Strep DNA Negative, Specimen Comment Not Reportable 05/06/25 05:50: Urine Color Straw, Urine Clarity Clear, Urine pH 7.0, Ur Specific [place] 1.005, Urine Protein 30 H, Urine Glucose (UA) Normal, Urine Ketones Negative, Urine Occult Blood Negative, Urine Nitrite Negative, Urine Bilirubin Negative, Urine Urobilinogen Normal, Ur Leukocyte Esterase Negative, Urine RBC 0 SEEN, Urine WBC 0-5 SEEN, Ur Squamous Epith Cells 0-5 SEEN, Urine Bacteria RARE, Urine Mucus 0 SEEN, Urine Opiates Screen NEGATIVE, U Buprenorphine Qual NEGATIVE, Ur Oxycodone Screen NEGATIVE, Urine Methadone Screen NEGATIVE, Urine Fentanyl Screen NEGATIVE, Ur Barbiturates Screen NEGATIVE, Ur Phencyclidine Scrn NEGATIVE, Ur Amphetamines Screen NEGATIVE, U Benzodiazepines Scrn NEGATIVE, Urine Cocaine Screen NEGATIVE, U Cannabinoids Screen NEGATIVE, Ur Drug Screen Comment Micro: Microbiology 05/06/25 05:50 Urine, Clean Catch Chlamydia/Neisseria (PCR) - Final Physical Exam Manual OB Exam: presentation cephalic, dilated 10, effaced 100, station - 1(0 to -1) and other AROM clear fluid NST FHR Rate Baby A Baseline: 135 Variability:: Moderate Accelerations:: None Decelerations:: Variable and Prolonged FHR Category:: Category II Uterine Activity:: every 2-4 minutes Assessment & Plan (1) Language barrier: (2) Limited care: (3) 40 weeks gestation of : (4) Category II heart rate tracing during labor and delivery: PLAN: Plan 1) Positional changes for prolonged heart rate decelerations 2) AROM clear fluid 3) FSE placed 4) Continue with expectant management and pushing efforts 5) notified of patient above assessment, status, and plan. 05/06/25814 <Electronically signed by Ekaterina Patricia CNM> Cosigner Signature (if applicable): CC: ~ Signed [facility] Work Phone: 1(595) 493-152706-15-2025 Progress note [facility] Medical Records Department [address] [place] [address] Progress Note - OBGYN 05/06/25 0901 MR#: [id number] Acct: [id number] Name: LAWRENCE ANDERS Rep #:[id number] : 2000 25 From: Ekaterina QUINTERO PCP: Care Physician,No Primary Status :ADM IN Location: [id number] Subjective Subjective On left side pushing in bed, attempted to turn to right side and prolonged fetalheart rate deceleration to 65. Position change to hands and knees with slow recovery. Objective Data Objective Data Vital Signs: Vital Signs Temp Pulse Resp BP Pulse Ox 98.7 F 63 16 108/52 L 97 05/06/25 08:28 05/06/25 08:33 05/06/25 08:28 05/06/25 08:33 05/06/25 08:28 Intake & Output: Intake and Output for Last 24 Hours 05/04/25 05/05/25 05/06/25 23:59 23:59 23:59 Intake Total 1000 / 1000 Output Total 450 / 450 Balance 550 / 550 Lab / Micro Data 05/06/25 02:55 05/06/25 02:55 Labs: Laboratory Results - last 24 hr 05/06/25 02:55: WBC 8.3, RBC 4.71, Hgb 11.3 L, Hct 35.8 L, MCV 76.0 L, MCH 24.0 L, MCHC 31.6 L, RDWStd Deviation 50.5 H, RDW Coeff of Morena 19.2 H, Plt Count 239, MPV 10.6, Immature Gran % (Auto) 1.600 H, Neut % (Auto) 64.5, Lymph % (Auto) 24.8, Love % (Auto) 6.9, Eos % (Auto) 1.6, Baso % (Auto) 0.6, Absolute Neuts (auto) 5.4, Absolute Lymphs (auto) 2.06, Nucleated RBC % 0.5, Sodium 135, Potassium4.2, Chloride 105, Carbon Dioxide 14.0 L, Anion Gap 17 H, BUN 10, Creatinine 0.65 L, Est GFR (MDRD)Non-Af 126, BUN/Creatinine Ratio 14.7, Glucose 82 05/06/25 02:55: Glucose 82, Hemoglobin A1c 5.8 H, Calcium 8.7, Total Bilirubin <0.15, AST 36 H, ALT 28, Alkaline Phosphatase 457 H, Total Protein 7.1, Albumin 3.4 L, Globulin 3.6, Albumin/GlobulinRatio 1.0, Syphilis Total Ab Nonreactive 05/06/25 02:55: Syphilis Total Ab Cancelled, Hep Bs Antigen Nonreactive, Hepatitis C Antibody Nonreactive, HIV 1&2 Antibody Nonreactive, Rubella IgG Antibody REAC, Blood Type O POSITIVE, AntibodyScreen NEGATIVE 05/06/25 03:15: Group B Strep DNA Negative, Specimen Comment Not Reportable 05/06/25 05:50: Urine Color Straw, Urine Clarity Clear, Urine pH 7.0, Ur Specific [place] 1.005, Urine Protein 30 H, Urine Glucose (UA) Normal, Urine Ketones Negative, Urine Occult Blood Negative, Urine Nitrite Negative, Urine Bilirubin Negative, Urine Urobilinogen Normal, Ur Leukocyte Esterase Negative, Urine RBC 0 SEEN, Urine WBC 0-5 SEEN, Ur Squamous Epith Cells 0-5 SEEN, Urine Bacteria RARE, Urine Mucus 0 SEEN, Urine Creatinine 49.20, Urine Opiates Screen NEGATIVE, U Buprenorphine Qual NEGATIVE, Ur Oxycodone Screen NEGATIVE, Urine Methadone Screen NEGATIVE, Urine Fentanyl Screen NEGATIVE,Ur Barbiturates Screen NEGATIVE, Ur Phencyclidine Scrn NEGATIVE, Ur Amphetamines Screen NEGATIVE, U Benzodiazepines Scrn NEGATIVE, Urine Cocaine Screen NEGATIVE, U Cannabinoids Screen NEGATIVE, Ur Drug Screen Comment Micro: Microbiology 05/06/25 05:50 Urine, Clean Catch Chlamydia/Neisseria (PCR) - Final NST FHR Rate Baby A Baseline: 140 Variability:: Minimal Accelerations:: None Decelerations:: Variable and Prolonged FHR Category:: Category II Uterine Activity:: Every 2-3 minutes Assessment & Plan (1) Category II heart rate tracing during labor and delivery: (2) Language barrier: (3) 40 weeks gestation of : (4) Limited care: (5) Prolonged heart deceleration: (6) intolerance to labor, delivered, current hospitalization: PLAN: Plan 1) Consulted due to prolonged heart rate decelerations, intolerance of labor and unable to continue with positional changes. station remained at 0 to +1. Have been unable to get strong pushing efforts due to intolerance. Decision for primary section. 2) Azithromycin 500mg IVPB and Ancef 2g IVPB 3) TXA 1g 4) Anesthesia notified 05/06/25905 Cosigner Signature (if applicable): CC: ~ Signed [facility]06-15-2025 Progress note [facility] Medical Records Department [address] [place] [address] Progress Note - OBGYN 05/06/25 0810 MR#: [id number] Acct: [id number] Name: LAWRENCE ANDERS Rep #:[id number] : 2000 25 From: Ekaterina QUINTERO PCP: Care Physician,No Primary Status :ADM IN Location: [id number] Subjective Subjective On hands and knees in bed, laboring down. Pushing for about an hour and no descent of head. Epidural for pain relief. Objective Data Objective Data Vital Signs: Vital Signs Temp Pulse Resp BP Pulse Ox 98.8 F 60 16 128/63 H 84 05/06/25 07:24 05/06/25 07:24 05/06/25 07:24 05/06/25 07:24 05/06/25 05:33 Intake & Output: Intake and Output for Last 24 Hours 05/04/25 05/05/25 05/06/25 23:59 23:59 23:59 Intake Total 1000 / 1000 Output Total 450 / 450 Balance 550 / 550 Lab / Micro Data 05/06/25 02:55 05/06/25 02:55 Labs: Laboratory Results - last 24 hr 05/06/25 02:55: WBC 8.3, RBC 4.71, Hgb 11.3 L, Hct 35.8 L, MCV 76.0 L, MCH 24.0 L, MCHC 31.6 L, RDWStd Deviation 50.5 H, RDW Coeff of Morena 19.2 H, Plt Count 239, MPV 10.6, Immature Gran % (Auto) 1.600 H, Neut % (Auto) 64.5, Lymph % (Auto) 24.8, Love % (Auto) 6.9, Eos % (Auto) 1.6, Baso % (Auto) 0.6, Absolute Neuts (auto) 5.4, Absolute Lymphs (auto) 2.06, Nucleated RBC % 0.5, Sodium 135, Potassium4.2, Chloride 105, Carbon Dioxide 14.0 L, Anion Gap 17 H, BUN 10, Creatinine 0.65 L, Est GFR (MDRD)Non-Af 126, BUN/Creatinine Ratio 14.7, Glucose 82 05/06/25 02:55: Glucose 82, Hemoglobin A1c 5.8 H, Calcium 8.7, Total Bilirubin <0.15, AST 36 H, ALT 28, Alkaline Phosphatase 457 H, Total Protein 7.1, Albumin 3.4 L, Globulin 3.6, Albumin/GlobulinRatio 1.0, Syphilis Total Ab Nonreactive 05/06/25 02:55: Syphilis Total Ab Cancelled, Hep Bs Antigen Nonreactive, Hepatitis C Antibody Nonreactive, HIV 1&2 Antibody Nonreactive, Rubella IgG Antibody REAC, Blood Type O POSITIVE, AntibodyScreen NEGATIVE 05/06/25 03:15: Group B Strep DNA Negative, Specimen Comment Not Reportable 05/06/25 05:50: Urine Color Straw, Urine Clarity Clear, Urine pH 7.0, Ur Specific [place] 1.005, Urine Protein 30 H, Urine Glucose (UA) Normal, Urine Ketones Negative, Urine Occult Blood Negative, Urine Nitrite Negative, Urine Bilirubin Negative, Urine Urobilinogen Normal, Ur Leukocyte Esterase Negative, Urine RBC 0 SEEN, Urine WBC 0-5 SEEN, Ur Squamous Epith Cells 0-5 SEEN, Urine Bacteria RARE, Urine Mucus 0 SEEN, Urine Opiates Screen NEGATIVE, U Buprenorphine Qual NEGATIVE, Ur Oxycodone Screen NEGATIVE, Urine Methadone Screen NEGATIVE, Urine Fentanyl Screen NEGATIVE, Ur Barbiturates Screen N EGATIVE, Ur Phencyclidine Scrn NEGATIVE, Ur Amphetamines Screen NEGATIVE, U Benzodiazepines Scrn NEGATIVE, Urine Cocaine Screen NEGATIVE, U Cannabinoids Screen NEGATIVE, Ur Drug Screen Comment Micro: Microbiology 05/06/25 05:50 Urine, Clean Catch Chlamydia/Neisseria (PCR) - Final Physical Exam Manual OB Exam: presentation cephalic, dilated 10, effaced 100, station - 1(0 to -1) and otherAROM clear fluid NST FHR Rate Baby A Baseline: 135 Variability:: Moderate Accelerations:: None Decelerations:: Variable and Prolonged FHR Category:: Category II Uterine Activity:: every 2-4 minutes Assessment & Plan (1) Language barrier: (2) Limited care: (3) 40 weeks gestation of : (4) Category II heart rate tracing during labor and delivery: PLAN: Plan 1) Positional changes for prolonged heart rate decelerations 2) AROM clear fluid 3) FSE placed 4) Continue with expectant management and pushing efforts 5) notified of patient above assessment, status, and plan. 05/06/25 0815 Cosigner Signature (if applicable): CC: ~ Signed [facility]06-15-2025 History and physical note Author Elvia Nichole [facility] Note Date/Time May 06, 2025 3:15 am [facility] Medical Records Department [address] [place] [address] H&P Exam - VOCATIONAL REHABILITATION ADMINISTRATOR 05/06/25 0306 MR#: [id number] Acct: [id number] Name: LAWRENCE ANDERS Rep #:[id number] : 2000 25 From: Elviatanner Tang MD PCP: Care Physician,No Primary Status :ADM IN Location: SY981-5 HPI - General General Date of Admission: 05/06/25 HPI Narrative LAWRENCE RANGEL, is a 25 F @ 40.5 weeks with limited PNC, [facility] approximately 5 times - did have lab work and Anatomy us done there- was seen earlier in day for ctx- told she was in early labor and to go [facility] as they have more services for her and baby when her contraction get to be 2-5 min. PFSH PFSH Medical History no medical history Allergy/AdvReac Type Severity Reaction Status Date / Time No Known Allergies Allergy Verified 05/06/25 02:33 Surgical History no surgical history NST FHR Rate Baby A Baseline: 135 Variability:: Moderate Accelerations:: 15 x 15 Decelerations:: None NST Reactive:: Yes FHR Category:: Category I Uterine Activity:: q4-5min Vital Signs Vital Signs Vital Signs: 05/06/25 02:29 05/06/25 02:29 05/06/25 02:29 Pulse Rate 56 L Blood Pressure 138/83 H BP Systolic 138 BP Diastolic 83 Pulse Ox 98 05/06/25 02:29 Pulse Rate 65 Blood Pressure BP Systolic BP Diastolic Pulse Ox Physical Exam Narrative limited bedside ultrasound: Vertex- no gross abnormalities noted VE: 7/80-90/-2 palpable Bag of water Const alert and oriented x3 General Appearance: cooperative HEENT normocephalic GI GI Narrative: Gravid, non tender to palpation. OB / External & Speculum: external exam normal Extremity normal to inspection Skin no rashes or lesions noted Neuro oriented x3 and CN's II-XII intact bilaterally Psych Appearance: grossly normal Labs Labs Labs: No Data to Display Assessment & Plan (1) Limited care: (2) 40 weeks gestation of : (3) Language barrier: PLAN: Plan Admit to L&D Montior FHR/TOCO Epidural if requested for pain Monitor VS Anticipate Labs state pending from Connie but we don't have PN labs present Co-mangement with Ekaterina Patricia CNM EFW <4500G 05/06/25 0315 <Electronically signed by Elvia Abrams MD> Cosigner Signature (if applicable): CC: Dr Elvia Abrams MD; No Primary Care Physician~ Signed [facility] Work Phone: [phone]) 568-921606-15-2025 Evaluation note* Diagnosis Onset Date Resolution Status Admit Date 40 weeks gestation of acut e May 06, 2025 2:35am Acute blood loss anemia acute J une 2024 2:35am Category II heart rate tracing during labor and delivery acute May 06, 2025 2:35am Delivery by section acute May 06, 2025 2:35am intolerance to labor, delivered, current hospitalization acute May 06, 2025 2:35am Language barrier acute April 2:35am Limited care acute Drew 2024 2:35am Prolonged heart deceleration acute May 06, 2025 2:35am [facility] Work Phone: [phone]) 752-936306-15-2025 History and physical note [facility] Medical Records Department [address] [place] [address] H&P Exam - VOCATIONAL REHABILITATION ADMINISTRATOR 05/06/25 0306 MR#: [id number] Acct: [id number] Name: LAWRENCE ANDERS Rep #:[id number] : 2000 25 From: Elvia Tang MD PCP: Care Physician,No Primary Status :ADM IN Location: [place] [id number] HPI - General General Date of Admission: 05/06/25 HPI Narrative LAWRENCE RANGEL, is a 25 F @ 40.5 weeks with limited PNC, [facility] approximately 5 times - did have lab work and Anatomy us done there- was seen earlier in day for ctx- told she was in early labor and to go [facility] as they have more services for her and babywhen her contraction get to be 2-5 min. PFSH PFSH Medical History no medical history Allergy/AdvReac Type Severity Reaction Status Date / Time No Known Allergies Allergy Verified 05/06/25 02:33 Surgical History no surgical history NST FHR Rate Baby A Baseline: 135 Variability:: Moderate Accelerations:: 15 x 15 Decelerations:: None NST Reactive:: Yes FHR Category:: Category I Uterine Activity:: q4-5min Vital Signs Vital Signs Vital Signs: 05/06/25 02:29 05/06/25 02:29 05/06/25 02:29 Pulse Rate 56 L Blood Pressure 138/83 H BP Systolic 138 BP Diastolic 83 Pulse Ox 98 05/06/25 02:29 Pulse Rate 65 Blood Pressure BP Systolic BP Diastolic Pulse Ox Physical Exam Narrative limited bedside ultrasound: Vertex- no gross abnormalities noted VE: -90/-2 palpable Bag of water Const alert and oriented x3 General Appearance: cooperative HEENT normocephalic GI GI Narrative: Gravid, non tender to palpation. OB / External & Speculum: external exam normal Extremity normal to inspection Skin no rashes or lesions noted Neuro oriented x3 and CN's II-XII intact bilaterally Psych Appearance: grossly normal Labs Labs Labs: No Data to Display Assessment & Plan (1) Limited care: (2) 40 weeks gestation of : (3) Language barrier: PLAN: Plan Admit to L&D Mont[facility] FHR/TOCO Epidural if requested for pain Monitor VS Anticipate Labs state pending from [facility] but we don't have PN labs present Co-mangement with Ekaterina Patricia CNM EFW <4500G 05/06/25 0315 Cosigner Signature (if applicable): CC: Dr Elvia Abrams MD; No Primary Care Physician~ [facility] Kristin Gamboa [facility] Note Date/Time May 08, 2025 12:2 4pm [facility] Medical Records Department [address] [place] [address] Discharge Summary 05/08/25 1216 MR#: [id number] Acct: [id number] Name: NENO CLARIELAWRENCE TUTTLE Rep #:[id number] : 2000 25 From: Kristin Gamboa MD PCP: Care Physician,No Primary Status :ADM IN Location: QF401-3 Providers Date of Admission: 05/06/25 Primary Care Physician: No Primary Care Phys Reason For Visit: LABOR Diagnosis Discharge Diagnosis (1) Delivery by section: Status: Acute (2) Acute blood loss anemia: Status: Acute Code(s): D62 - Acute posthemorrhagic anemia Medications at Discharge Home Medications acetaminophen 500 mg tablet (Acetaminophen Extra Strength) 1,000 mg (2 x 500 mg)PO Q6H PRN fever or pain 20 days #90 tabs 05/08/25 ferrous sulfate 325 mg (65 mg iron) tablet (FeroSul) 325 mg PO QODAY 60 days #30tabs 05/08/25 ibuprofen 600 mg tablet 600 mg PO Q6H PRN Pain 20 days #60 TABLETS 05/08/25 oxycodone 5 mg tablet 5 mg PO Q8H PRN severe pain 7 days #10 TABLETS 05/08/25 Hospital Course Operations - (primary c/s) Procedures None Summary of Care Provided Minutes Spent on Discharge: 17 Hospital Course: 25-year-old 1 para 0 presented at 40-5/7 weeks in labor. She had limited care at an outside facility. She arrived on 05/06/2025 in labor. She progressed to complete and pushing and was able to push for about 2 hours but had prolonged decelerations and persistent category 2 heart tracing and that had not made significant descent. Decision was made on 05/06/2025 to proceed with primary section. A primary low-transverse section was performed on that day. EBL at time of surgery was 700 cc but patient had moderate acute blood loss anemia. Calculated blood loss at timeof discharge was 1215 mL. This is consistent with mild intra operative and postoperative hemorrhage. Hemoglobin was stable on postoperative day #2 patientwas ambulating urinating without difficulty. She was discharged home with routine instructions and prescriptions and given a prescription for p.o. iron. She was tolerating the anemia well. She is to take vitamins as well. She is to follow-up in the office In 1 week in 6 weeks or as needed. ABG / Lab / Microbiology Data 05/08/25 05:55 05/06/25 02:55 Laboratory: Laboratory Results - last 24 hr 05/08/25 05:55: WBC 12.8 H, RBC 3.34 L, Hgb 8.3 L, Hct 25.3 L, MCV 75.7 L, MCH 24.9 L, MCHC 32.8, RDW Std Deviation 52.1 H, RDW Coeff of Morena 19.5 H, Plt Count 245, MPV 10.0 Microbiology: Microbiology 05/06/25 05:50 Urine, Clean Catch Chlamydia/Neisseria (PCR) - Final D/C Instructions Discharge Diet: No restrictions May resume sexual activity in: 6-8 weeks Lifting Restrictions: 20 pounds Additional Activity Instructions: Nothing in the vagina for 6 weeks. You may return to work/school in 6 weeks. Call your doctor if your incision/area has: Continuous Slow Oozing, Sudden Increased Bleeding, Increased Pain/ Swelling, Increased Redness and Foul Smelling Discharge Call your doctor if you observe: Fever of 101 or Higher and Using more than 1 pad per hour (for 2 hours) Suture Line Care: Avoid Pulling/Pushing and Avoid Pinching/Bending Cleanse incision/area with: Keep Dressing Clean & Dry DC O2, CPAP, BIPAP Needs Home O2 Discharge instructions: No Please Follow Up With: Elvia Abrams MD When: Call to make an appointment for an incision check in 1-2 [phone]. You will need a post check in 6 weeks. Meaningful Use Info Meaningful Use Meaningful Use Diagnoses (Choose all that apply): None applicable Ischemic Stroke Statin Dosing Therapy Reference: STATIN DOSE THERAPY REFERENCE: * Patients > 75 years receive moderate or high dose statin therapy. * Patients 75 years or YOUNGER should receive HIGH intensity statin dose unless contraindicated. You will be required to document reason for non-treatment if statin daily dose does not meet guidelines. HIGH DOSE STATIN THERAPY DAILY Atorvastatin > than or = to 40 mg Rosuvastatin > than or = to 20 mg Amlodipine + Atorvastatin > than or = to 2.5/40 mg Ezetimibe + Simvastatin 10/80 mg Simvastatin 80mg Discharge Plan Admission Admit Date/Time: 05/06/25 02:35 Primary Reason for Your Visit: Labor and delivery Attending Provider: Elvia Abrams Primary Care Provider: Care Physician,No Primary Discharge Orders/Prescriptions Prescriptions: New ferrous sulfate [FeroSul] 325 mg (65 mg iron) tablet 325 mg PO QODAY 60 Days Qty: 30 1RF acetaminophen [Acetaminophen Extra Strength] 500 mg tablet 1,000 mg PO Q6H PRN (Reason: fever or pain) 20 Days Qty: 90 0RF ibuprofen 600 mg tablet 600 mg PO Q6H PRN (Reason: Pain) 20 Days Qty: 60 1RF oxycodone 5 mg tablet 5 mg PO Q8H PRN (Reason: severe pain) 7 Days Qty: 10 0RF Referrals / Follow Up: Care Physician,No Primary [Primary Care Provider] - Disposition Disposition (needs filled in before D/C Order can be placed): Home, Self Care 05/08/25 1224 <Electronically signed by Kristin Gamboa MD> Cosigner Signature (if applicable): CC: Dr. Kristin Gamboa MD; No Primary Care Physician~ Signed [facility] Work Phone: Reason for referral (narrative)No reason for referral information [facility]WWood [facility] Work Phone: Chief Complaint and Reason for Visit Chief Complaint Admit Date LABOR May 06, 2025 2:35 am Reason for Visit Admit Date 40 weeks gestation of April 2:35am Acute blood loss anemia May 06, 2025 2:35am Category II heart rate tracing dur ing labor and delivery May 06, 2025 2:35am Delivery by section May 06, 2025 2:35am intolerance to labor, delivered, c urrent hospitalization May 06, 2025 2:35am Language barrier May 06, 2025 2:35 am Limited care May 06, 2025 2: 35am Prolonged heart deceleration May 06, 2025 2:35am Advance Directives No Advanced Directives Records Found Advance Directive Response Recorded Date/ Time Do you have a Healthcare Power of Art Tracer? No May 06, 2025 2:54am Summary Purpose Family History No Family History Records Found Additional Source Comments Care Teams (unrecognized sec tion and content) Team Status: Active Member Role Status Dates No Primary Care Physician Primary Care Provider Active Team Status: Inactive Member Role Status Dates No Primary Care Physician Primary Care Provider Active Start: May 06, 2025 End: May 08, 2025 Dr. Elvia Abrams MD Admit Provider Active Start: May 06, 2025 End: May 08, 2025 Dr. Elvia Abrams MD Attending Provider Ac tive Start: May 06, 2025 End: May 08, 2025 Dr. Elvia Abrams MD Referring Provider Rick mane Start: May 06, 2025 End: May 08, 2025 INFORMATION SOURCE (unrecogn ized section and content) DATE CREATED AUTHOR 06/21/2025 [facility] FOR RECORDS PERTAINING TO PATIENTS WHO ARE OR HAVE BEEN ENROLLED IN A CHEMICAL DEPENDENCY/SUBSTANCEABUSE PROGRAM, SOME INFORMATION MAY BE OMITTED. This clinical summary was aggregated from multiple sources. Caution should be exercised in using it in the provision of clinical care. This summary normalizes information from multiple sources, and as a consequence, information in this document may materially change the coding, format and clinical context of patient data. In addition, data may be omitted in some cases. CLINICAL DECISIONS SHOULD BE BASED ON THE PRIMARY CLINICAL RECORDS. [employer] [facility]. provides no warranty or guarantee of the accuracy or completeness of information in this document.
[2025-11-05 00:50] LABS: Prothrombin Time (Protime)PT. 15.6 SECONDS (11.7-14.9)
[2025-11-05 00:51] LABS: Partial Thromboplast Time 32.2 Seconds (24.1-36.2)
[2025-11-05 00:55] LABS: Lipase 50 U/L (13-75)
[2025-11-05 01:02] LABS: AST(SGOT) 27 U/L (<=31); Alanine Aminotransfer ALT/SGPT 18 U/L (<=34); Albumin, Serum 4.1 g/dL (3.5-5.0); Alkaline Phosphatase 100 U/L (35-104); BUN 11 mg/dL (4-19); BUN/Creat Ratio 14.6 RATIO (10-20); Bilirubin, Direct 0.10 mg/dL (0.00-0.30); Calcium,Total 8.2 mg/dL (7.6-11.0); Carbon Dioxide 19.6 mmol/L (21.0-32.0); Estimated Creatinine Clearance 75.55 ml/min (50-250); Globulin 2.8 g/dL (2.2-4.2); Glucose 121 mg/dL (70-99); Potassium 3.6 mmol/L (3.3-5.1)
[2025-11-05 01:05] LABS: Anion Gap 12 (5-15); Chloride 105 mmol/L (98-108)
--- NOTE | 2025-11-05 01:22 | EX.ED.DYSGE1 ---
HPI History of Present Illness Chief Complaint: Abd Pain Informant: patient and spouse/S.O. Limited: language barrier Narrative Narrative: Patient is a 25-year-old female who underwent a for her first in April of this year and following that hemorrhage and acute blood loss anemia requiring blood transfusion. She states she has been doing well since that time. However this evening around 10 PM developed upper abdominal discomfort. She initially stated that it occurred after eating and it felt almost as if food had gotten stuck in her throat. She states however that that sensation seem to pass and then she noticed pain in the upper abdomen. She states there is no associated vomiting or diarrhea or dysuria. She denies any fevers or chills or known sick contact. She states that she took a pain pill that was leftover from her without any symptom improvement and secondary to this she presents for evaluation [facility] Medical History (Updated 11/05/25 @ 01:[address] Aristides Armenta DO) Menorrhagia Iron deficiency anemia Home Medications ?Medication ?Instructions ?Recorded ?Last Taken ?Type oxycodone 5 mg tablet 5 mg PO Q8H PRN severe pain 7 days 05/08/25 11/04/25 Rx #10 TABLETS ferrous sulfate 325 mg (65 mg 325 mg PO QODAY 11/05/25 Unknown History iron) tablet (FeroSul) Allergy/AdvReac Type Severity Reaction Status Date / Time No Known Allergies Allergy Verified 11/04/25 23:38 Surgical History (Updated 11/05/25 @ 01:[address] Leticia Adan MD) Delivery by section Social History (Updated 11/05/25 @ 01:[address] Leticia Adan MD) household members: spouse and children Smoking Status: Never smoker alcohol intake: never substance use type: does not use ROS ROS ED Constitutional Constitutional ED: Denies chills or fever(s) Eyes Eyes: Denies change in vision ENT ENT ED: Reports sore throat Cardiovascular Cardiovascular: Denies chest pain Respiratory/Chest Respiratory/Chest: Denies cough or dyspnea Gastrointestinal Gastrointestinal: Reports abdominal pain; Denies diarrhea, melena, nausea or vomiting Genitourinary Genitourinary ED: Reports other Details: Patient reports heavy and prolonged menstrual cycle since giving ; Denies dysuria or hematuria Musculoskeletal Musculoskeletal: Denies myalgias Integumentary Denies rash Neurologic Neurologic: Denies headache(s) or weakness Hematologic/Lymphatic Hematologic/Lymphatic: Denies easy bleeding or easy bruising EXAM Physical Exam Const Vital Signs: 11/04/25 23:36 11/04/25 23:40 11/05/25 01:30 Temperature 98.7 F Temperature Source Oral Pulse Rate 58 L 66 Respiratory Rate 16 16 Respiratory Effort Normal Non-Labored Respiratory Pattern Normal Blood Pressure 105/37 L 116/68 Blood Pressure Mean 59 84 Pulse Ox 100 100 Oxygen Delivery Method Room Air Room Air Positive well nourished and well developed General Appearance ED: well developed and pallor HEENT Reports moist mucous membranes HEENT Narrative: Normocephalic atraumatic No tongue or lip swelling no oral lesions no airway edema or compromise No secondary findings in the posterior pharynx to suggest infection Eyes PERRL and EOMs intact bilaterally Eyes Narrative: Positive subconjunctival pallor noted General Eye ED: Yes pale conjunctiva; Negative for scleral icterus Neck supple Neck Narrative: No nuchal rigidity or meningeal signs Resp normal respiratory effort and clear to auscultation bilaterally Cardio regular rate and regular rhythm Rate: other Other Details: Regular rate and rhythm without murmurs rubs or gallop Radial and carotid pulses are equal and symmetric GI non-distended and no masses GI Narrative: Abdomen is soft and nondistended with normal active bowel sounds Patient has pain with palpation in the midepigastric and right upper quadrant region No voluntary guarding or rigidity. Negative Tejeda sign No peritoneal signs No pulsatile mass Auscultation: normoactive bowel sounds Palpation: soft Narrative: Rectal exam displays no external hemorrhoid or anal fissure Rectal tone is normal Stool is brown in color and Hemoccult negative Extremity normal to inspection Neuro oriented x3, CN's II-XII intact bilaterally and no sensory deficits noted Sensorium / Orientation: alert Motor Exam: strength 5/5 throughout Psych mental status grossly normal Skin no rashes or lesions noted Skin Narrative: Skin is pale in color but capillary refill remains less than 3 seconds General Skin Exam: pallor; Negative for jaundice MDM MDM MDM Narrative Medical decision making narrative: Patient presented to the ER with sudden onset abdominal discomfort and also report of sensation of food potentially stuck in her throat. In order to assess for esophageal obstruction I did have the patient drink water upon arrival. She was able to swallow without difficulty and there is no associated vomiting going against esophageal obstruction. As her pain is in the midepigastric and right upper quadrant region patient could have GERD/gastritis versus acute pancreatitis versus biliary colic or acute cholecystitis. Secondary to this basic blood work was obtained as well as a CT scan of the abdomen and pelvis with IV contrast. The patient's hemoglobin came back low at 6.3 and chart review reveals previous value was 8.5 in April of this year. Her MCV is low indicating microcytic anemia and this is most likely due to iron deficiency anemia. However in order to assess for another cause of the bleeding such as gastric ulcer as she does have upper abdominal pain and upper GI bleed I did elect to perform a rectal exam. This displayed brown stool that was Hemoccult negative going against an upper GI bleed as a cause of her anemia. She does not have a fever or white count and there is no elevation to her liver enzymes or lipase which would go against gallstone pancreatitis or acute cholecystitis. However the CT scan did show mild edema around the gallbladder concerning for developing cholecystitis. The patient's vitals are stable indicating her anemia is most likely been developing slowly but as she will need further workup to assess for the cause such as acute blood loss anemia versus thalassemia versus iron deficiency anemia versus B12 deficiency I do feel she should be admitted to the hospital. Secondary to this I contacted the hospitalist and patient was typed and crossed for 2 units of blood. The hospitalist evaluated the patient in the ER and will admit to their service and can continue blood transfusion as well as workup for the cause of the anemia and further assess the potential cause of her abdominal pain History & Record Review Discussion w/independent historian: Patient and Significant other Lab Data Attestation: I reviewed the patient's lab results. Labs: Laboratory Results - last 24 hr 11/05/25 11/05/25 00:00 00:40 WBC 6.3 RBC 3.95 L Hgb 6.3 L Hct 24.4 L MCV 61.8 L MCH 15.9 L MCHC 25.8 L RDW Std Deviation 43.5 RDW Coeff of Morena 19.9 H Plt Count 570 H MPV 8.7 Immature Gran % (Auto) 0.300 Neut % (Auto) 44.5 L Lymph % (Auto) 39.0 [place] % (Auto) 10.8 H Eos % (Auto) 4.8 Baso % (Auto) 0.6 Absolute Neuts (auto) 2.8 Absolute Lymphs (auto) 2.45 Nucleated RBC % 0 PT 15.6 H INR 1.2 APTT 32.2 Sodium 136 Potassium 3.6 Chloride 105 Carbon Dioxide 19.6 L Anion Gap 12 BUN 11 Creatinine 0.74 Estim Creat Clear Calc 75.55 Est GFR (MDRD) Non-Af 116 BUN/Creatinine Ratio 14.6 Glucose 121 H Calcium 8.2 Total Bilirubin < 0.15 Direct Bilirubin 0.10 AST 27 ALT 18 Alkaline Phosphatase 100 Total Protein 6.9 Albumin 4.1 Globulin 2.8 Lipase 50 Serum , Qual NEGATIVE Blood Type O POSITIVE Antibody Screen NEGATIVE Radiography Diagnostic Testing: Clinical Impression(s) from Imaging Studies Abdomen/Pelvis CT 11/04/25 23:57 IMPRESSION: Hepatic periportal hypodensities, possibly edema. Advise clinico-laboratory correlation to exclude the possibility of hepatitis. Gall bladder tiny calculi with minimal mural edema suggesting mild cholecystitis. Colonic fecal loading. Fluid distension of left side abdominal jejunal loop, possibly enteritis. Mild gastric pylorus and pyloroduodenal mural thickening, possibly gastritis. Reading [facility] [id number] Management Discussion w/another healthcare provider: Hospitalist Discharge Plan Dx/Rx/DC Orders Clinical Impression: Anemia, Abdominal pain Disposition Disposition: Acute Care Hospital [facility]
--- NOTE | 2025-11-05 01:35 | US_ITS ---
EXAM: US Abdomen Limited, Right Upper Quadrant CLINICAL INDICATION: ? CHOLECYSTITIS TECHNIQUE: Real-time ultrasound of the right upper quadrant with image documentation. COMPARISON: No relevant prior studies available. FINDINGS: LIVER: LIVER MEASURES UP TO 14.6 CM. Fatty infiltration of the liver. No intrahepatic bile duct dilation. GALLBLADDER: POSITIVE STRICKLAND'S SIGN. GALLBLADDER SLUDGE. No gallstones. COMMON BILE DUCT: Unremarkable as visualized. No stones. No dilation. Common bile duct measures 0.25 cm in diameter. PANCREAS: Unremarkable as visualized. RIGHT KIDNEY: Unremarkable. No stones. No hydronephrosis. The RIGHT kidney measures 9.5 x 4.9 x 4.2 cm. US/Abdomen Limited IMPRESSION: Fatty infiltration of the liver. Gallbladder sludge with findings equivocal for acute cholecystitis. Further ev aluation with HIDA scan may be beneficial. Reading Location: [facility]
--- NOTE | 2025-11-05 01:35 | PCM.HP.STD ---
HPI - General General Date of Admission: 11/05/25 Date of Service: 11/05/25 Chief Complaint: Abdominal pain, nausea. HPI Narrative The patient is a 25 y/o F w/ PMHx: Chronic microcytic anemia/Fe deficiency anemia additionally complicated by hemorrhage with associated ABLA who presents the [facility] ED on 11/15/25 with history of onsetjust prior to ED arrival on the evening prior to presentation with initially eating food which initially felt stuck, improved with fluids but following she continued to have persistent upper abdominal epigastric and right upper quadrant pain with some mild nausea secondary to the pain which was persistent and severe prompting eventual ED evaluation but denied any associated emesis or diarrhea. She noted she had leftover Percocet from 6 months prior and took this but did not have any improvement. She notes her menstrual cycles have been very heavy and long since her . She notes the pain is stabbing in nature, rates it 9/10 in severity. When asked where her pain is she points to the epigastric region however on examination her pain is more diffuse and includes the left upper and lower quadrant as well. Workup in the ED included T98.7, heart rate 58, BP 105/37, respiratory rate 16, 100% on room air, CBC with WC 6.3, hemoglobin 6.3, MCV 61.8, platelet 570 without marked shift, coags with PT 15.6 otherwise unremarkable, CMP with carbon oxide 19.6, BUN/creatinine 11/0.74, GFR 116, glucose 121, hepatic profile unremarkable, serum testing negative, CT abdomen and pelvis with IV contrast only with hepatic periportal hypodensities possibly edema, gallbladder tiny calculi with minimal marrow edema suggestive of mild cholecystitis, colonic fecal loading, fluid distention of left side abdominal jejunal loop possibly enteritis, mild gastric pylorus and pyloroduodenal mural thickening possibly gastritis, ED physician initiated 2 unit PRBC-type and cross, hemoccult negative. In the ED patient is strict 1 L normal saline, Dilaudid 1 mg IV x 1, Zofran 4 mg IV x 1, Protonix 40 mg IV x 1. [facility] Medical History Menorrhagia Iron deficiency anemia Home Medications ?Medication ?Instructions ?Recorded ?Last Taken ?Type oxycodone 5 mg tablet 5 mg PO Q8H PRN severe pain 7 days 05/08/25 11/04/25 Rx #10 TABLETS ferrous sulfate 325 mg (65 mg 325 mg PO QODAY 11/05/25 Unknown History iron) tablet (FeroSul) Allergy/AdvReac Type Severity Reaction Status Date / Time No Known Allergies Allergy Verified 11/04/25 23:38 Family History Mother No problems noted. Father No problems noted. no significant family history (She denies any marked maternal or paternal family history including heart disease, diabetes, cancer.) Surgical History Delivery by section Social History household members: spouse and children Smoking Status: Never smoker alcohol intake: never substance use type: does not use ROS ROS Narrative Admission Review of Systems: CONSTITUTIONAL: No weight loss, fever, chills, + weakness or fatigue. HEENT: Eyes: No visual loss, blurred vision, double vision or yellow sclerae. Ears, Nose, Throat: No hearing loss, sneezing, congestion, runny nose or sore throat. SKIN: No rash or itching, lesions, wounds. CARDIOVASCULAR: No chest pain, chest pressure or chest discomfort, palpitations, edema, orthopnea, syncopal events. RESPIRATORY: No shortness of breath, cough or sputum, wheezing, hemoptysis. GASTROINTESTINAL: + anorexia, nausea without vomiting, abdominal pain. No diarrhea, melena, BRBPR. 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 + Notable issues with menorrhagia, ongoing heavy prolonged cycles since ~6 months prior. NEUROLOGICAL: No headache, dizziness, syncope, paralysis, ataxia, numbness or tingling in the extremities, focal weakness, change in bowel or bladder control, seizure. MUSCULOSKELETAL: No muscle, back pain, joint pain or stiffness. HEMATOLOGIC: + Chronic anemia, persistent issues with menorrhagia, no specific easy bruising history. LYMPHATICS: No enlarged nodes. No history of splenectomy. PSYCHIATRIC: No history of depression or anxiety. ENDOCRINOLOGIC: No reports of sweating, cold or heat intolerance. No polyuria or polydipsia. ALLERGIES: No history of asthma, hives, eczema or rhinitis. Vital Signs Vital Signs Vital Signs: 11/04/25 23:36 11/04/25 23:40 11/05/25 01:30 Temperature 98.7 F Temperature Source Oral Pulse Rate 58 L 66 Respiratory Rate 16 16 Respiratory Effort Normal Non-Labored Respiratory Pattern Normal Blood Pressure 105/37 L 116/68 Blood Pressure Mean 59 84 Pulse Ox 100 100 Oxygen Delivery Method Room Air Room Air Weight Weight: 90 lb Body Mass Index (BMI) 16.9 Results Lab / Micro Data 11/05/25 00:00 11/05/25 00:00 Labs: Laboratory Results - last 24 hr 11/05/25 00:00: WBC 6.3, RBC 3.95 L, Hgb 6.3 L, Hct 24.4 L, MCV 61.8 L, MCH 15.9 L, MCHC 25.8 L, RDW Std Deviation 43.5, RDW Coeff of Morena 19.9 H, Plt Count 570 H, MPV 8.7, Immature Gran % (Auto) 0.300, Neut % (Auto) 44.5 L, Lymph % (Auto) 39.0, [place] % (Auto) 10.8 H, Eos % (Auto) 4.8, Baso % (Auto) 0.6, Absolute Neuts (auto) 2.8, Absolute Lymphs (auto) 2.45, Nucleated RBC % 0, PT 15.6 H, INR 1.2, APTT 32.2, Sodium 136, Potassium 3.6, Chloride 105, Carbon Dioxide 19.6 L, Anion Gap 12, BUN 11, Creatinine 0.74, Estim Creat Clear Calc 75.55, Est GFR (MDRD) Non-Af 116, BUN/Creatinine Ratio 14.6, Glucose 121 H, Calcium 8.2, Total Bilirubin < 0.15, Direct Bilirubin 0.10, AST 27, ALT 18, Alkaline Phosphatase 100, Total Protein 6.9, Albumin 4.1, Globulin 2.8, Lipase 50, Serum , Qual NEGATIVE 11/05/25 00:40: Blood Type O POSITIVE, Antibody Screen NEGATIVE Micro: Microbiology 11/05/25 00:40 Stool Stool Occult Blood (BIBI) - Final Imaging Radiology Impression Abdomen/Pelvis CT 11/04/25 23:57 IMPRESSION: Hepatic periportal hypodensities, possibly edema. Advise clinico-laboratory correlation to exclude the possibility of hepatitis. Gall bladder tiny calculi with minimal mural edema suggesting mild cholecystitis. Colonic fecal loading. Fluid distension of left side abdominal jejunal loop, possibly enteritis. Mild gastric pylorus and pyloroduodenal mural thickening, possibly gastritis. Reading Location: [place] [id number] Assessment & Plan Assessment/Plan (1) Right upper quadrant abdominal pain: (2) Anemia: PLAN: Plan The patient is a 25 y/o F w/ PMHx: Chronic microcytic anemia/Fe deficiency anemia additionally complicated by hemorrhage with associated ABLA who presents the [facility] ED on 11/15/25 with history of onsetjust prior to ED arrival on the evening prior to presentation with initially eating food which initially felt stuck, improved with fluids but following she continued to have persistent upper abdominal epigastric and right upper quadrant pain with some mild nausea secondary to the pain which was persistent and severe prompting eventual ED evaluation but denied any associated emesis or diarrhea. #1. Acute abdominal pain with associated nausea, questionable acute cholecystitis versus early potential gastroenteritis, uncertain: Will admit to [facility], maintain on IVFs, NPO, initiate and maintain on IV zosyn pending GBUS to be cautious and if not marked de-escalate off, if onset diarrhea would obtain cdiff/enteric pathogen panel, maintain on IV PPI, IV/po pain control, trend lipase, CMP. Will obtain RUQ US and pending these findings will involve general surgery if appropriate. #2. Acute on Chronic microcytic anemia/iron deficit anemia complicated by history of hemorrhage/associated acute blood loss anemia with recent significant menorrhagia likely etiology: Admission hemoglobin 6.3, MCV 61.8, previously at time of her last hemoglobin noted 8.3, will obtain full iron panel, ferritin and likely proceed with IV iron supplementation, add oral supplement as well and continue to trend CBC, of note guaiac was negative and she denies any history of black stools or bright red blood per rectum. Will need early follow-up with [facility] given ongoing issues with heavy menstruation as etiology. #3. DVT prophylaxis: SCDs, hold chemoprophylaxis in case of surgery intervention needs as noted above #1. Charges/Coding Visit Charges Inpatient E&M: 97668 Init Hosp L2
--- OUTSIDE RECORDS SUMMARY | 2025-11-05 01:47 | XMS RPT_ITS | CCD ---
Author Organization [facility] Care Team Providers Care Senior Media Planner Name Role Phone Care Physician, No Primary Primary Care Provider Unavailable Jose Alberto MOODY, Dr. Gan Admit Provider Jose Alberto MOODY, Dr. Gan Attending Provid er Dr. Elvia bArams MD Referring Provid er Care Physician, No [...] sources) Language barrier impedes ability to use [employer] resources; Translations: [Acculturation difficulty] 05-06-2025 Episodic distress [...] B Beta Streptococcus is not isolated. Normal [facility] Comment on above: Performed By: #### M 100.1988 #### [facility] [address] [place], [place], [id number] CBC-Complete Blood Cnt No Di ffon 05-08-2025 Erythrocyte distribution width (RBC) [Ratio] 19.5 % High 11.6-14.6 [facility] Comment on above: Performed By: #### 8200.2203 #### [facility] [address] [place], [address] Hematocrit (Bld) [Volume fraction] 25.3 % Low 37-47 [facility] Comment on above: Performed By: #### Karen 8200.2203 #### [facility] [address] [place], [address] Hemoglobin (Bld) [Mass/Vol] 8.3 g/dL Low 12.0-15.0 [facility] Comment on above: Performed By: #### Karen 8200.2203 #### [facility] [address] [place], [address] MCH (RBC) [Entitic mass] 24.9 pg Low 27.0-32.0 [facility] Comment on above: Performed By: #### Karen [id number] #### [facility] [address] [place], [address] MCHC (RBC) [Mass/Vol] 32.8 g/dL Normal 32-36 [facility] Comment on above: Performed By: #### Karen 8200.2203 #### [facility] [address] [place], [address] MCV (RBC) [Entitic vol] 75.7 fL Low 81-99 [facility] Comment on above: Performed By: #### Karen 8200.2203 #### [facility] [address] [place], [address] Platelet mean volume (Bld) [Entitic vol] 10.0 fL Normal 6.2-12.0 [facility] Comment on above: Performed By: #### Karen 8200.2203 #### [facility] [address] [place], [address] Platelets (Bld) [#/Vol] 245 10*3/uL Normal 150-450 [facility] Comment on above: Performed By: #### 8200.2203 #### [facility] [address] [place], [address] RBC (Bld) [#/Vol] 3.34 10*6/uL Low 4.2-5.4 [facility] Comment on above: Performed By: #### M 8200.2203 #### [facility] [address] [place], [address] RDW SD 52.1 fl High 35.1-43.9 [facility] Comment on above: Performed By: #### 8200.2203 #### [facility] [address] [place], [address] WBC (Bld) [#/Vol] 12.8 10*3/uL High 4.4-11.0 [facility] Comment on above: Performed By: #### 8200.2203 #### [facility] [address] [place], [address] Erythrocyte distribution wid th ratioOrdered By: Sherry Morales on 05-08-2025 Erythrocyte distribution width (RBC) [Ratio] 19.5 % High 11.6-14.6 [facility] Erythrocyte distribution wid th standard deviationOrdered By: Sherry Morales on 05-08-2025 Erythrocyte distribution width (RBC) [Ratio] 52.1 fl High 35.1-43.9 [facility] Hematocrit Auto (Bld) [Volum e fraction]Ordered By: Sherry Morales on 05-08-2025 Hematocrit (Bld) [Volume fraction] 25.3 % Low 37-47 [facility] Hemoglobin measurementOrdere d By: Sherry Morales on 05-08-2025 Hemoglobin (Bld) [Mass/Vol] 8.3 g/dL Low 12.0-15.0 [facility] MCV (mean corpuscular volume ) determinationOrdered By: Sherry Morales on 05-08-2025 MCV (RBC) [Entitic vol] 75.7 fL Low 81-99 [facility] Mean corpuscular hemoglobin (MCH) determinationOrdered By: Sherry Morales on 05-08-2025 MCH (RBC) [Entitic mass] 24.9 pg Low 27.0-32.0 [facility] Mean corpuscular hemoglobin concentration (MCHC) determinationOrdered By: Sherry Morales on 05-08-2025 MCHC (RBC) [Mass/Vol] 32.8 g/dL 32-36 [facility] Mean platelet volume determi nationOrdered By: Sherry Morales on 05-08-2025 Platelet mean volume (Bld) [Entitic vol] 10.0 fL 6.2-12.0 [facility] Platelet countOrdered By: Sa ra Morales on 05-08-2025 Platelets (Bld) [#/Vol] 245 10*3/uL 150-450 [facility] RBC Auto (Bld) [#/Vol]Ordere d By: Sherry Morales on 05-08-2025 RBC (Bld) [#/Vol] 3.34 10*6/uL Low 4.2-5.4 [facility] White blood cell (WBC) count Ordered By: Sherry Morales on 05-08-2025 WBC (Bld) [#/Vol] 12.8 10*3/uL High 4.4-11.0 [facility] CBC-Complete Blood Cnt No Di ffon 05-07-2025 Erythrocyte distribution width (RBC) [Ratio] 19.3 % High 11.6-14.6 [facility] Comment on above: Order Comment: Comme nts: Day #1Reason for Laboratory Test Performed By: #### M 8200.2203 #### [facility] [address] [place], [address] Hematocrit (Bld) [Volume fraction] 26.4 % Low 37-47 [facility] Comment on above: Order Comment: Comme nts: Day #1Reason for Laboratory Test Performed By: #### M 8200.2202 #### [facility] [address] [place], [address] Hemoglobin (Bld) [Mass/Vol] 8.5 g/dL Low 12.0-15.0 [facility] Comment on above: Order Comment: Comme nts: Day #1Reason for Laboratory Test Performed By: #### 8200.2202 #### [facility] [address] [place], [address] MCH (RBC) [Entitic mass] 24.5 pg Low 27.0-32.0 [facility] Comment on above: Order Comment: Comme nts: Day #1Reason for Laboratory Test Performed By: #### M 8200.2202 #### [facility] [address] [place], [address] MCHC (RBC) [Mass/Vol] 32.2 g/dL Normal 32-36 [facility] Comment on above: Order Comment: Comme nts: Day #1Reason for Laboratory Test Performed By: #### 8200.2202 #### [facility] [address] [place], [address] MCV (RBC) [Entitic vol] 76.1 fL Low 81-99 [facility] Comment on above: Order Comment: Comme nts: Day #1Reason for Laboratory Test Performed By: #### 8200.2202 #### [facility] [address] [place], [address] Platelet mean volume (Bld) [Entitic vol] 10.4 fL Normal 6.2-12.0 [facility] Comment on above: Order Comment: Comme nts: Day #1Reason for Laboratory Test Performed By: #### M 8200.2202 #### [facility] [address] [place], [address] Platelets (Bld) [#/Vol] 219 10*3/uL Normal 150-450 [facility] Comment on above: Order Comment: Comme nts: Day #1Reason for Laboratory Test Performed By: #### M 8200.220 #### [facility] [address] [place], [address] RBC (Bld) [#/Vol] 3.47 10*6/uL Low 4.2-5.4 [facility] Comment on above: Order Comment: Comme nts: Day #1Reason for Laboratory Test Performed By: #### M 8200.220 #### [facility] [address] [place], [address] RDW SD 50.7 fl High 35.1-43.9 [facility] Comment on above: Order Comment: Comme nts: Day #1Reason for Laboratory Test Performed By: #### M 8200.2202 #### [facility] [address] [place], [address] WBC (Bld) [#/Vol] 12.2 10*3/uL High 4.4-11.0 [facility] Comment on above: Order Comment: Comme nts: Day #1Reason for Laboratory Test Performed By: #### M 8200.220 #### [facility] [address] [place], [address] Absolute lymphocyte countOrd ered By: Elvia Abrams on 05-06-2025 Lymphocytes Auto (Unsp spec) [#/Vol] 2.06 10*3/uL 0.83-4.51 [facility] Absolute neutrophil countOrd ered By: Elvia Abrams on 05-06-2025 Neutrophils (Bld) [#/Vol] 5.4 10*3/uL 2.0-7.7 [facility] Amphetamine detection with 1 000 ng/mL as cutoffOrdered By: Elvia Tang on 05-06-2025 Amphetamines Screen method >1000 ng/mL Ql (U) Negative < 200 ng/mL [facility] Anion gap in Serum or Plasma Ordered By: Elvia Abrams on 05-06-2025 Anion gap [Moles/Vol] 17 mmol/L High 04-05 [facility] Automated lymphocyte count a s percentage of total leukocytesOrdered By: Elvia Abrams on 05-06-2025 Lymphocytes/100 WBC Auto (Unsp spec) 24.8 % - [facility] BUN/creatinine ratioOrdered By: Elvia Abrams on 05-06-2025 Urea nitrogen/Creatinine [Mass ratio] 14.7 mg/mg 10- [facility] Basophil percentageOrdered B y: Elvia Abrams on 05-06-2025 Basophils/100 WBC (Bld) 0.6 % 0-1 [facility] Bilirubin Test strip Ql (U)O rdered By: Elvia Abrams on 05-06-2025 Bilirubin Ql (U) Negative Negative [facility] Bilirubin, totalOrdered By: Elvia Abrams on 05-06-2025 Bilirubin [Mass/Vol] mg/dL 0.00-1.30 [place] CBC W/Diff, Automatedon 04-22 Absolute Neut Normal 2.0-7.7 [facility] Comment on above: Result Comment: Francine pickens via OM: Ordered Performed By: #### Karen 5955. #### [facility] [address] [place], [address] HCT Normal 37-47 [facility] Comment on above: Result Comment: Francine pickens via OM: Ordered Performed By: #### Karen 2978. #### [facility] [address] [place], [address] HGB Normal 12.0-15.0 [facility] Comment on above: Result Comment: Francine pickens via OM: Ordered Performed By: #### Karen 1998.2202 #### [facility] [address] [place], [address] MCH Normal 27.0-32.0 [facility] Comment on above: Result Comment: Canc elled via OM: MD Ordered Performed By: #### M 8200.2202 #### [facility] [address] [place], [address] MCHC Normal 32-36 [facility] Comment on above: Result Comment: Canc elled via OM: MD Ordered Performed By: #### M 8200.2202 #### [facility] [address] [place], [address] MCV Normal 81-99 [facility] Comment on above: Result Comment: Canc elled via OM: MD Ordered Performed By: #### M 8200.2202 #### [facility] [address] [place], [address] NEUT% Normal 47-70 [facility] Comment on above: Result Comment: Canc elled via OM: MD Ordered Performed By: #### M 8200.2202 #### [facility] [address] [place], [address] PLT Normal 150-450 [facility] Comment on above: Result Comment: Canc elled via OM: MD Ordered Performed By: #### M 8200.2202 #### [facility] [address] [place], [address] RBC Normal 4.2-5.4 [facility] Comment on above: Result Comment: Canc elled via OM: MD Ordered Performed By: #### M 8200.2202 #### [facility] [address] [place], [address] RDW CV Normal 11.6-14.6 [facility] Comment on above: Result Comment: Canc elled via OM: MD Ordered Performed By: #### M 8200.2202 #### [facility] [address] [place], [address] RDW SD Normal 35.1-43.9 [facility] Comment on above: Result Comment: Canc elled via OM: MD Ordered Performed By: #### M 8200.2203 #### [facility] [address] [place], [address] WBC Normal 4.4-11.0 [facility] Comment on above: Result Comment: Canc elled via OM: MD Ordered Performed By: #### M 8200.2202 #### [facility] [address] [place], [address] Absolute Lymph 2.06 X10 3/uL Normal 0.83-4.51 [facility] Comment on above: Performed By: #### Andrea KINCAID, L100.0100 #### [facility] [address] [place], [address] Absolute Neut 5.4 X10 3/uL Normal 2.0-7.7 [facility] Comment on above: Performed By: #### Andrea KINCAID, L100.0100 #### [facility] [address] [place], [address] Basophils/100 WBC (Bld) 0.6 % Normal 0-1 [facility] Comment on above: Performed By: #### Andrea KINCAID, L100.0100 #### [facility] [address] [place], [address] Eosinophils/100 WBC (Bld) 1.6 % Normal 0-5 [facility] Comment on above: Performed By: #### Andrea KINCAID, L100.0100 #### [facility] [address] [place], [address] Erythrocyte distribution width (RBC) [Ratio] 19.2 % High 11.6-14.6 [facility] Comment on above: Performed By: #### Andrea KINCAID, L100.0100 #### [facility] [address] [place], [address] Hematocrit (Bld) [Volume fraction] 35.8 % Low 37-47 [facility] Comment on above: Performed By: #### Andrea KINCAID, L100.0100 #### [facility] [address] [place], [address] Hemoglobin (Bld) [Mass/Vol] 11.3 g/dL Low 12.0-15.0 [facility] Comment on above: Performed By: #### Andrea KINCAID, L100.0100 #### [facility] [address] [place], [address] IG% 1.600 High 0.0-0.9 [facility] Comment on above: Result Comment: IG% - Immature Granulocytes (promyelocytes, myelocytes and metamyelocytes) > 1% indicates that a LEFT SHIFT is Present. Performed By: #### Andrea KINCAID, L100.0100 #### [facility] [address] [place], [address] Lymphocytes/100 WBC (Bld) 24.8 % Normal 19-41 [facility] Comment on above: Performed By: #### Andrea KINCAID, L100.0100 #### [facility] [address] [place], [address] MCH (RBC) [Entitic mass] 24.0 pg Low 27.0-32.0 [facility] Comment on above: Performed By: #### Andrea KINCAID, L100.0100 #### [facility] [address] [place], [address] MCHC (RBC) [Mass/Vol] 31.6 g/dL Low 32-36 [facility] Comment on above: Performed By: #### Andrea KINCAID, L100.0100 #### [facility] [address] [place], [address] MCV (RBC) [Entitic vol] 76.0 fL Low 81-99 [facility] Comment on above: Performed By: #### Andrea KINCAID, L100.0100 #### [facility] [address] [place], [address] Monocytes/100 WBC (Bld) 6.9 % Normal 0-10 [facility] Comment on above: Performed By: #### Andrea KINCAID, L100.0100 #### [facility] [address] [place], [address] Neutrophils/100 WBC (Bld) 64.5 % Normal 47-70 [facility] Comment on above: Performed By: #### Andrea KINCAID, L100.0100 #### [facility] [address] [place], [address] Nucleated RBC (Bld) [#/Vol] 0.5 10*3/uL Normal 0-5 [facility] Comment on above: Performed By: #### Andrea KINCAID, L100.0100 #### [facility] [address] [place], [address] Platelet mean volume (Bld) [Entitic vol] 10.6 fL Normal 6.2-12.0 [facility] Comment on above: Performed By: #### Andrea KINCAID, L100.0100 #### [facility] [address] [place], [address] Platelets (Bld) [#/Vol] 239 10*3/uL Normal 150-450 [facility] Comment on above: Performed By: #### Andrea KINCAID, L100.0100 #### [facility] [address] [place], [address] RBC (Bld) [#/Vol] 4.71 10*6/uL Normal 4.2-5.4 [facility] Comment on above: Performed By: #### Andrea KINCAID, L100.0100 #### [facility] [address] [place], [address] RDW SD 50.5 fl High 35.1-43.9 [facility] Comment on above: Performed By: #### B TS, L100.0100 #### [facility] [address] [place], [address] WBC (Bld) [#/Vol] 8.3 10*3/uL Normal 4.4-11.0 [facility] Comment on above: Performed By: #### B TS, L100.0100 #### [facility] [address] [place], [address] Carbon dioxide, total [Moles /volume] in Central venous bloodOrdered By: Elvia Abrams on 05-06-2025 CO2 [Moles/Vol] 14.0 mmol/L Low 21.0-32.0 [facility] Chloride assayOrdered By: Lin on 05-06-2025 Chloride [Moles/Vol] 105 mmol/L 98-108 [place] [facility] Metabolic Prof ilon 05-06-2025 Albumin [Mass/Vol] 3.4 g/dL Low 3.5-5.0 [facility] Comment on above: Order Comment: Reaso n for Exam: Performed By: #### M 4356.2202 #### [facility] [address] [place], [address] Albumin/Globulin [Mass ratio] 1.0 {ratio} Normal 0.9-2.4 [facility] Comment on above: Order Comment: Reaso n for Exam: Performed By: #### M 8200.2202 #### [facility] [address] [place], [address] ALK PHOS 457 U/L High 35-104 [facility] Comment on above: Order Comment: Reaso n for Exam: Performed By: #### M 8200.220 #### [facility] [address] [place], [address] ALT [Catalytic activity/Vol] 28 U/L Normal <=34 [facility] Comment on above: Order Comment: Reaso n for Exam: Performed By: #### M 8200.2202 #### [facility] [address] [place], [address] AST [Catalytic activity/Vol] 36 U/L High <=31 [facility] Comment on above: Order Comment: Reaso n for Exam: Performed By: #### M 8200.2202 #### [facility] [address] [place], [address] BUN/CRE 14.7 RATIO Normal 10-20 [facility] Comment on above: Order Comment: Reaso n for Exam: Performed By: #### 8200.2202 #### [facility] [address] [place], [address] Calcium [Mass/Vol] 8.7 mg/dL Normal 7.6-11.0 [facility] Comment on above: Order Comment: Reaso n for Exam: Performed By: #### M 8200.2202 #### [facility] [address] [place], [address] Chloride [Moles/Vol] 105 mmol/L Normal 98-108 [place] Comment on above: Order Comment: Reaso n for Exam: Performed By: #### M 8200.2202 #### [facility] [address] [place], [address] CO2 [Moles/Vol] 14.0 mmol/L Low 21.0-32.0 [facility] Comment on above: Order Comment: Reaso n for Exam: Performed By: #### M 8200.2202 #### [facility] [address] [place], [address] Creatinine [Mass/Vol] 0.65 mg/dL Low 0.70-1.20 [facility] Comment on above: Order Comment: Reaso n for Exam: Performed By: #### M 8200.2202 #### [facility] [address] [place], [address] GAP 17 High 5-15 [facility] Comment on above: Order Comment: Reaso n for Exam: Performed By: #### Karen 8200.2202 #### [facility] [address] [place], [address] GFR/1.73 sq M.predicted among non-blacks MDRD (S/P/Bld) [Vol rate/Area] 126 mL/min/{1.73_m2} Normal >60 [facility] Comment on above: Order Comment: Reaso n for Exam: Result Comment: mL/m in/1.73m2 CKD-EPI Creatinine Equation (2020) Performed By: #### Karen 8200.2202 #### [facility] [address] [place], [address] Globulin (S) [Mass/Vol] 3.6 g/dL Normal 2.2-4.2 [facility] Comment on above: Order Comment: Reaso n for Exam: Performed By: #### Karen 8200.2202 #### [facility] [address] [place], [address] Glucose [Mass/Vol] 82 mg/dL Normal 70-99 [facility] Comment on above: Order Comment: Reaso n for Exam: Performed By: #### Karen 8200.2202 #### [facility] [address] [place], [address] Potassium [Moles/Vol] 4.2 mmol/L Normal 3.3-5.1 [facility] Comment on above: Order Comment: Reaso n for Exam: Performed By: #### Karen 8200.2202 #### [facility] [address] [place], [address] Sodium [Moles/Vol] 135 mmol/L Normal 133-145 [facility] Comment on above: Order Comment: Reaso n for Exam: Performed By: #### M 8200.2203 #### [facility] [address] [place], [address] T BILI < 0.15 Normal 0.00-1.30 [facility] Comment on above: Order Comment: Reaso n for Exam: Performed By: #### M 8200.2203 #### [facility] [address] [place], [address] T PROT 7.1 g/dL Normal 5.9-8.4 [facility] Comment on above: Order Comment: Reaso n for Exam: Performed By: #### M 8200.220 #### [facility] [address] [place], [address] Urea nitrogen [Mass/Vol] 10 mg/dL Normal 4-19 [facility] Comment on above: Order Comment: Reaso n for Exam: Performed By: #### M 8200.2203 #### [facility] [address] [place], [address] Eosinophil percentageOrdered By: Elvia Abrams on 05-06-2025 Eosinophils/100 WBC (Bld) 1.6 % 0-5 [facility] Glomerular filtration rate ( GFR) estimation/1.73 sq m using serum, plasma, or whole bOrdered By: Elvia Abrams on 05-06-2025 GFR/1.73 sq M.predicted among non-blacks MDRD (S/P/Bld) [Vol rate/Area] 126 mL/min/{1.73_m2} >60 [facility] Comment on above: mL/min/1.73m2 CKD-EP I Creatinine Equation (2020) Glucoseon 05-06-2025 Glucose [Mass/Vol] 82 mg/dL Normal 70-99 [facility] Comment on above: Performed By: #### M 8200.2203 #### [facility] [address] [place], [place], [address] Group B Strep DNA By PCRon 0 05-06-2025 GBS DNA ASSAY Negative Normal Negative [facility] Comment on above: Performed By: #### L 8200.0000 #### [facility] [address] [place], [address] H AND P Exam - OB/GYNon 04-22 H&P Exam - RECLAIMER [facility] Medical Records Department [address] [place] [address] H P Exam - RECLAIMER 05/06/25 0306 MR#: [id number] Acct: [id number] Name: LAWRENCE ANDERS Rep #: [id number] 12 : 2000 25 From: Elvia Abrams MD PCP: Care Physician,No Primary Status:ADM IN Location: [place] [id number] HPI - General General Date of Admission: 05/06/25 HPI Narrative LAWRENCE RANGEL, is a 25 F @ 40.5 weeks with limited PNC, saw [facility] approximately 5 times - did have lab work and Anatomy us done there- was seen earlier in day for ctx- told she was in early labor and to go to [facility] as they have more services for her [...] Monitor VS Anticipate Labs state pending from [place] but we don't have PN labs present Co-mangement with Ekaterina Patricia CNM EFW <4500G 05/06/25 0315 Cosigner Signature (if applicable): CC: Dr Elvia Abrams MD; No Primary Care Physician Signed Normal [facility] HIVon 05-06-2025 HIV Non-Reactive Normal Nonreactive [facility] Comment on above: Order Comment: Reaso [...] Order the HIV antibody detection and differentiation: [id number] Performed By: #### L 509.4006, L3890.6102, L100.0100, L3890.6006, L501.0900, L500.4050, L400.0001, L501.9985 #### [facility] [address] [place], [address] Hemoglobin A1con 05-06-2025 HbA1c (Bld) [Mass fraction] 5.8 % High <=5.6 [facility] Comment on above: Result Comment: Norm al < 5.7 % Prediabetic 5.7 - 6.4 % Diabetic >or= 6.5 % Please note range changes. Performed By: #### L 509.4006, L3890.6102, L100.0100, L3890.6006, L501.0900, L500.4050, L400.0001, L501.9985 #### [facility] [address] [place], [address] Hemoglobin A1c percentageOrd ered By: Elvia Abrams on 05-06-2025 HbA1c (Bld) [Mass fraction] 5.8 % High <5.7 [facility] Comment on above: Normal < 5.7 % Predi abetic 5.7 - 6.4 % Diabetic >or= 6.5 % Please note range changes. Hepatitis C Antibodyon 05-06 Hepatitis C Ab Non-Reactive Normal Nonreactive [facility] Comment on above: Result Comment: Reac tive: Presumptive evidence of antibodies to HCV. Follow CDC recommendations for supplemental testing. Non-Reactive: Antibodies to HCV were not detected; does not exclude the possibility of exposure to HCV Reactive Results are presumptive evidence of antibodies to HCV. Follow CDC recommendations for supplemental testing. Order confirmation testing: HCV Quant by PCR testing - HCVPCR #[id number] Non Reactive: < 0.8 Equivocal: >/= 0.8 to < 1.0 Reactive: >/= 1.0 The CDC requires that a reactive/equivocal HCV antibody result be sent out for confirmation. HCV Quant by PCR testing. Performed By: #### M 8200.2203 #### [facility] [address] [place], [place], [address] Immature granulocytes/100 WB C Auto (Bld)Ordered By: Elvia Abrams on 05-06-2025 Immature granulocytes/100 WBC (Bld) 1.600 % High 0.0-0.9 [facility] Comment on above: IG% - Immature Granu locytes (promyelocytes, myelocytes and metamyelocytes) > 1% indicates that a LEFT SHIFT is Present. Ketones Test strip Ql (U)Ord ered By: Elvia Abrams on 05-06-2025 Ketones Ql (U) Negative Negative [facility] L3890.6102on 05-06-2025 HEP B Surf Ag Non-Reactive Normal Nonreactive [facility] Comment on above: Order Comment: Reaso n for Exam: Result Comment: Reac tive: Presumptive evidence of HBV. Repeatedly reactive samples must be confirmed using a neutralization test (Elecsys HBsAg Confirmatory Test) Non-Reactive: HBsAg not detected; does not exclude the possibility of exposure to HBV Performed By: #### M 8200.2203 #### [facility] [address] [facility]. [place], [place], [address] L509.4006on 05-06-2025 Rubella IgG REAC Normal Nonreactive [facility] Comment on above: Order Comment: Reaso n for Exam: Result Comment: Anti body Result: Interpretation Non-Reactive: Non-Immune Reactive: Immune The following results were obtained with the Elecsys Rubella IgG assay. Results from assays of other manufacturers cannot be used interchangeably. Performed By: #### L 509.4006, L3890.6102, L100.0100, L3890.6006, L501.0900, L500.4050, L400.0001, L501.9985 #### [facility] [address] [facility] [place], [place], [address] Laboratory - Chemistry and C hemistry - challengeOrdered By: Elvia Tang on 05-06-2025 AST [Catalytic activity/Vol] 36 U/L High <32 [facility] - Microbiology an d Antimicrobial susceptibilityOrdered By: Elvia Abrams on 05-06-2025 HBV surface Ag Ql (S) Non-Reactive Nonreactive [facility] Comment on above: Reactive: Presumptiv e evidence of HBV. Repeatedly reactive samples must be confirmed using a neutralization test (Elecsys HBsAg Confirmatory Test)Non-Reactive: HBsAg not detected; does not exclude the possibility of exposure to HBV M8200.2203on 05-06-2025 M8200.2203 Pending Chlamydia Trachomatis PCR NEGATIVE for Chlamydia trachomatis N. gonorrhoeae PCR Negative for N. gonorrhoeae Normal [facility] Comment on above: Performed By: #### M 8200.2203 #### [facility] [address] [place], [address] Microscopic analysis of urin e for red blood cells (RBC)Ordered By: Elvia Abrams on 05-06-2025 Microscopic analysis of urine for red blood cells (RBC) 0 SEEN /hpf 0-5 [facility] Monocyte percentageOrdered B y: Elvia Abrams on 05-06-2025 Monocytes/100 WBC (Bld) 6.9 % 0-10 [facility] Mucus LM Ql (Urine sed)Order ed By: Elvia Abrams on 05-06-2025 Mucus Ql (Urine sed) 0 SEEN /hpf [facility] Neutrophil percentageOrdered By: Elvia Abrams on 05-06-2025 Neutrophils/100 WBC (Bld) 64.5 % 47-70 [facility] Nitrite Test strip Ql (U)Ord ered By: Elvia Abrams on 05-06-2025 Nitrite Ql (U) Negative Negative [facility] No Panel InformationOrdered By: Elvia Abrams on 05-06-2025 Urine Buprenorphine Qualitative Negative < 200 ng/mL [facility] Urine Drug Screen Comment [facility] Comment on above: CONFIRMATORY TESTING FOR [...] Oxycodone Screen Negative < 100 ng/mL [facility] Specimen Comment (Misc) Not Reportable [facility] Comment on above: Single swab collecti on for GBS testing is not recommended.Dual source collection provides optimal results. HIV (1&2) Antibody Non-Reactive Nonreactive [facility] Comment on above: Non-ReactiveReactive Repeatedly reactive samples must be confirmed according to CDC recommended confirmatory algorithms. The subresults for either HIVAG or AHIV can be used as an aid in the selection of the confirmation algorithm for reactive samples.Send out specimens with Reactive results to [facility] for confirmation.Order the HIV antibody detection and differentiation: #[id number] Nucleated red blood cell per centageOrdered By: Elvia Abrams on 05-06-2025 Nucleated RBC/100 WBC (Bld) [Ratio] 0.5 % 0-5 [facility] Operative Reporton Operative Report [facility] Medical Records Department [address] [place] [address] Operative Report 05/06/25 1021 MR#: [id number] Acct: [id number] Name: LAWRENCE ANDERS Rep #: [id number] : 2000 25 From: Elvia Abrams MD PCP: Care Physician,No Primary Status:ADM IN Location: TV307-6 Maternal Data Information Gestational age: 40.5 weeks [...] (5 minute): 9 Delayed Cord Clamping: Yes 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 Sheet Folder: Gita Arauz Tasks completed by wet process assistant head miller: Opening closing, Dissecting tissue and Retracting Additional tourist information assistant?: No Complications Complications: No 05/06/25 1027 [...] No Primary Care Physician * Signed Normal [facility] Potassium measurement (mass/ volume)Ordered By: Elvia Abrams on 05-06-2025 Potassium (Unsp spec) [Mass/Vol] 4.2 mmol/L 3.3-5.1 [facility] Protein Test strip Ql (U)Ord ered By: Elvia Abrams on 05-06-2025 Protein Ql (U) 30 mg/dl High Negative [facility] Protein+Creatinine Ratio,Uri neon 05-06-2025 PROT:CRE RATIO 516 mg/g CRE High 0-200 [facility] Comment on above: Performed By: #### M 8200.220 #### [facility] [address] [place], [place], [address] Protein (U) [Mass/Vol] 25.4 mg/dL High 0.0-12.0 [facility] Comment on above: Performed By: #### M 8200.220 #### [facility] [address] [place], [place], [address] Quantitative urine opiates m easurementOrdered By: Elvia Abrams on 05-06-2025 Opiates Ql (U) Negative < 300 ng/mL [facility] Random urine creatinine clinton urement (mass/volume)Ordered By: Elvia Tang on 05-06-2025 Creatinine Unsp time (U) [Mass/Vol] 49.20 mg/dL 28.00-217.00 [facility] Screening urine fentanyl mary surementOrdered By: Elvia Abrams on 05-06-2025 fentaNYL Screen Ql (U) Negative [facility] Serum creatinine measurement (mass/volume)Ordered By: Elvia Abrams on 05-06-2025 Creatinine [Mass/Vol] 0.65 mg/dL Low 0.70-1.20 [facility] Serum globulin measurementOr dered By: Elvia Abrams on 05-06-2025 Globulin (S) [Mass/Vol] 3.6 g/dL 2.2-4.2 [facility] Serum glucose measurement (m ass/volume)Ordered By: Elvia Abrams on 05-06-2025 Glucose [Mass/Vol] 82 mg/dL 70-99 [facility] Serum or plasma alanine goodwin otransferase (ALT) measurementOrdered By: Elvia Abrams on 05-06-2025 ALT [Catalytic activity/Vol] 28 U/L <35 [facility] Serum or plasma albumin clinton urement (mass/volume)Ordered By: Elvia Tang on 05-06-2025 Albumin [Mass/Vol] 3.4 g/dL Low 3.5-5.0 [facility] Serum or plasma albumin/glob ulin mass ratioOrdered By: Elvia Abrams on 05-06-2025 Albumin/Globulin [Mass ratio] 1.0 {ratio} 0.9-2.4 [facility] Serum or plasma alkaline nazia sphatase measurementOrdered By: Elvia Tang on 05-06-2025 ALP [Catalytic activity/Vol] 457 U/L High 35-104 [facility] Serum or plasma calcium clinton urement (mass/volume)Ordered By: Elvia Tang on 05-06-2025 Calcium [Mass/Vol] 8.7 mg/dL 7.6-11.0 [facility] Serum or plasma urea nitroge n measurement (mass/volume)Ordered By: Elvia Abrams on 05-06-2025 Urea nitrogen [Mass/Vol] 10 mg/dL 4-19 [facility] Sodium levelOrdered By: Yamileth Abrams on 05-06-2025 Sodium [Moles/Vol] 135 mmol/L 133-145 [facility] Squamous epithelial cells de tection in urine sediment by light microscopyOrdered By: Elvia Abrams on 05-06-2025 Epithelial cells.squamous LM Ql (Urine sed) 0-5 SEEN /hpf 5-10 [facility] Syphilis Antibodieson 2024 Syphilis Abs Non-Reactive Normal Nonreactive [facility] Comment on above: Performed By: #### L 509.8002 #### [facility] [address] [place], [address] Total proteinOrdered By: Kapadia on 05-06-2025 Protein [Mass/Vol] 7.1 g/dL 5.9-8.4 [facility] Type AND Screenon 05-06-2025 Ab SCREEN GEL Negative Normal [facility] Comment on above: Order Comment: Labor Performed By: #### B TS, L100.0100 #### [facility] [address] [place], [place], [address] Ur Drg Scn w/Rflx AMPH Confi rmon 05-06-2025 Amphetamines Ql (U) Negative Normal <1000 ng/mL [place] Comment on above: Performed By: #### M 8272.9716 #### [facility] [address] [place], [place], [address] BARBITIURATES Negative Normal < 200 ng/mL [facility] Comment on above: Performed By: #### M 2507.2206 #### [facility] [address] [place], [place], [address] BENZODIAZIPINE Negative Normal < 200 ng/mL [facility] Comment on above: Performed By: #### M 8200.2202 #### [facility] [address] [place], [address] BUP Ur Drug Scr Negative Normal < 200 ng/mL [facility] Comment on above: Performed By: #### M 8200.2202 #### [facility] [address] [place], [address] Cocaine Ql (U) Negative Normal < 300 ng/mL [facility] Comment on above: Performed By: #### M 8200.2202 #### [facility] [address] [place], [address] Fentanyl Negative Normal [facility] Comment on above: Performed By: #### M 8200.2202 #### [facility] [address] [place], [address] Methadone Ql (U) Negative Normal < 300 ng/mL [facility] Comment on above: Performed By: #### M 8200.2202 #### [facility] [address] [place], [address] Opiates Ql (U) Negative Normal < 300 ng/mL [facility] Comment on above: Performed By: #### M 8200.2202 #### [facility] [address] [place], [address] OXYCODONE Negative Normal < 100 ng/mL [facility] Comment on above: Performed By: #### M 8200.2202 #### [facility] [address] [place], [address] PCP Negative Normal < 25 ng/mL [facility] Comment on above: Performed By: #### M 8200.2202 #### [facility] [address] [place], [address] THC Negative Normal < 50 ng/mL [facility] Comment on above: Performed By: #### M 8200.220 #### [facility] [address] [place], [address] Urinalysis, Completeon 05-06 BACTERIA RARE Normal None Seen [facility] Comment on above: Order Comment: COLLE CTOR TO SPECIFY Performed By: #### M 8200.220 #### [facility] [address] [place], [address] EPI,SQUAMOUS 0-5 SEEN Normal 5-10 [facility] Comment on above: Order Comment: COLLE CTOR TO SPECIFY Performed By: #### M 8200.220 #### [facility] [address] [place], [address] WBC 0-5 SEEN Normal 0-5 [facility] Comment on above: Order Comment: COLLE CTOR TO SPECIFY Performed By: #### 8200.2202 #### [facility] [address] [place], [address] BILIRUBIN URINE Negative Normal Negative [facility] Comment on above: Order Comment: KIRA CTOR TO SPECIFY Performed By: #### M 8200.2202 #### [facility] [address] [place], [address] Clarity (U) Clear Normal Clear [facility] Comment on above: Order Comment: COLLE CTOR TO SPECIFY Performed By: #### M 8200.2202 #### [facility] [address] [place], [address] Color (U) Straw Normal Yellow [facility] Comment on above: Order Comment: COLLE CTOR TO SPECIFY Performed By: #### M 8200.2202 #### [facility] [address] [place], [address] GLUCOSE, UR Normal Normal Normal [facility] Comment on above: Order Comment: COLLE CTOR TO SPECIFY Performed By: #### M 8200.2202 #### [facility] [address] [place], [address] KETONE UR Negative Normal Negative [facility] Comment on above: Order Comment: KIRA CTOR TO SPECIFY Performed By: #### 8200.2202 #### [facility] [address] [place], [address] LEUK ESTERASE Negative Normal Negative [facility] Comment on above: Order Comment: KIRA CTOR TO SPECIFY Performed By: #### 8200.2202 #### [facility] [address] [place], [address] Nitrite Ql (U) Negative Normal Negative [facility] Comment on above: Order Comment: KIRA CTOR TO SPECIFY Performed By: #### M 8200.2202 #### [facility] [address] [place], [address] OCCULT BLOOD-UR Negative Normal Negative [facility] Comment on above: Order Comment: KIRA CTOR TO SPECIFY Performed By: #### 8200.2202 #### [facility] [address] [place], [address] pH UR 7.0 Normal 5.0 - 8.0 [facility] Comment on above: Order Comment: KIRA CTOR TO SPECIFY Performed By: #### 8200.2202 #### [facility] [address] [place], [address] PROT DIPSTX 30 mg/dl Abnormal Negative [facility] Comment on above: Order Comment: KIRA CTOR TO SPECIFY Performed By: #### M 8200.2202 #### [facility] [address] [place], [address] SP.GR. DIPSTX 1.005 Normal 1.002-1.030 [facility] Comment on above: Order Comment: KIRA CTOR TO SPECIFY Performed By: #### 8200.2202 #### [facility] [address] [place], [place], [address] UROBILI Normal Normal Normal [facility] Comment on above: Order Comment: KIRA CTOR TO SPECIFY Performed By: #### M 8200.2203 #### [facility] [address] [place], [place], [address] Mucus Ql (Urine sed) 0 SEEN Normal [facility] Comment on above: Order Comment: KIRA CTOR TO SPECIFY Performed By: #### M 8200.2203 #### [facility] [address] [place], [place], [address] RBC 0 SEEN Normal 0-5 [facility] Comment on above: Order Comment: KIRA CTOR TO SPECIFY Performed By: #### M 8200.2203 #### [facility] [address] [place], [place], [address] Urine amphetamine measuremen tOrdered By: Elvia Abrams on 05-06-2025 Amphetamines Ql (U) Negative <1000 ng/mL [facility] Urine benzodiazepine levelOr dered By: Elvia Abrams on 05-06-2025 Benzodiazepines Ql (U) Negative < 200 ng/mL [facility] Urine clarityOrdered By: Oshea-Kitty on 05-06-2025 Clarity (U) Clear Clear [facility] Urine cocaine levelOrdered B y: Elvia Abrams on 05-06-2025 Cocaine Ql (U) Negative < 300 ng/mL [facility] Urine color determinationOrd ered By: Elvia Abrams on 05-06-2025 Color (U) Straw Yellow [facility] Urine kehui-0-iqpjltselarrww abinol (THC) measurementOrdered By: Elvia Abrams on 05-06-2025 Cannabinoids Screen Ql (U) Negative < 50 ng/mL [facility] Urine glucose detectionOrder ed By: Elvia Abrams on 05-06-2025 Glucose Ql (U) Normal mg/dl Normal [facility] Urine leukocyte esterase det ection by dipstickOrdered By: Elvia Tang on 05-06-2025 Leukocyte esterase Test strip Ql (U) Negative Negative [facility] Urine pHOrdered By: Elvia Clark on 05-06-2025 pH (U) 7.0 [pH] 5.0 - 8.0 [facility] Urine phencyclidine (PCP) de tectionOrdered By: Elvia Abrams on 05-06-2025 Phencyclidine Ql (U) Negative < 25 ng/mL [facility] Urine protein measurement (m ass/volume)Ordered By: Elvia Abrams on 05-06-2025 Protein (U) [Mass/Vol] 25.4 mg/dL High 0.0-12.0 [facility] Urine protein/creatinine mas s ratioOrdered By: Elvia Abrams on 05-06-2025 Protein/Creatinine (U) [Mass ratio] 516 mg/g CRE High 0-200 [facility] Urine sediment bacteria coun t by microscopy (number/high power field)Ordered By: Elvia Abrams on 05-06-2025 Bacteria LM.HPF (Urine sed) [#/Area] RARE /hpf None Seen [facility] Urine specific gravity measu rementOrdered By: Elvia Abrams on 05-06-2025 Specific gravity (U) [Rel density] 1.005 1.002-1.030 [facility] Urine urobilinogen measureme ntOrdered By: Elvia Abrams on 05-06-2025 Urobilinogen Ql (U) Normal mg/dl Normal [facility] White blood cell countOrdere d By: Elvia Abrams on 05-06-2025 White blood cell count 0-5 SEEN /hpf 0-5 [facility] Vital Signs Date Time Vital Sign Value Performing Clinician Faci lity 05-08-2025 12:52-0400 Body temperature 98 [degF] No Primary Care Physician [facility] 05-08-2025 12:52-0400 Diastolic blood pressure 63 mm[Hg] No Primary Care Physician [facility] 05-08-2025 12:52-0400 Heart rate 71 /min No Primary Care Physician [facility] 05-08-2025 12:52-0400 Respiratory rate 16 /min No Primary Care Physician [facility] 05-08-2025 12:52-0400 SaO2% (BldA) [Mass fraction] 98 % No Primary Care Physician [facility] 05-08-2025 12:52-0400 Systolic blood pressure 112 mm[Hg] No Primary Care Physician [facility] 05-06-2025 02:49-0400 Body height 154.94 cm No Primary Care Physician [facility] Encounters Encounter Date Encounter Type Care [...] HCV Quant by PCR testing - HCVPCR #[id number] Non Reactive: < 0.8 Equivocal: >/= 0.8 [...] Activity Detail Author Start: 05-08-2025 Patient discharge [facility] Start: 05-07-2025 Application of abdominal corset [facility] Start: 05-06-2025 Group B Streptococcus Culture Group B Streptococcus Culture [facility] Start: 05-06-2025 Application of abdominal corset [facility] Start: 05-06-2025 Administration of medication [facility] Start: 05-06-2025 Ambulation therapy management [facility] Start: 05-06-2025 Application of device [facility] Start: 05-06-2025 Application of intermittent pneumatic compression device [facility] Start: 05-06-2025 Assessment of risk of venous thromboembolism [facility] Start: 05-06-2025 Catheterization of vein [facility] Start: 05-06-2025 Deep breathing and coughing exercises [facility] Start: 05-06-2025 Exercises [facility] Start: 05-06-2025 Measuring intake and output [facility] Start: 05-06-2025 Notification of physician [facility] Start: 05-06-2025 Procedure discontinued [facility] Start: 05-06-2025 Provision of activity privileges [facility] Start: 05-06-2025 Skin care [facility] Start: 05-06-2025 Vital signs measurements [facility] Start: 05-06-2025 Wound care [facility] Start: 05-06-2025 End: 05-06-2025 [facility] Start: 05-06-2025 Admission procedure [facility] Start: 05-06-2025 Consultation [facility] Beta-hemolytic Streptococcus culture [facility] Patient Education After a Matt an Delivery (WP) [facility] Work Phone: Patient referral [facility] Work Phone: Payers Date Payer Category Payer Medicaid [id number] 2025 Self-pay Unknown [id number] Social History Date Type Detail Facility Patient currentl y [facility] Start: 05-06-2025 Tobacco smoking stat us NHIS Never smoked tobacco (finding) [facility] Start: 2000 Sex Assigned At Female [facility] Goals Date Patient Goal Desired Activity /State Clinical Notes 05-06-2025 to 05-08-2025 Note Date & Type Note Facility 05-08-2025 Discharge summary [facility] 05-08-2025 Note [facility] Medical Records Department [address] [place] [address] Discharge Summary 05/08/25 1216 MR#: [id number] Acct: [id number] Name: LAWRENCE ANDERS Rep #: [id number] : 2000 25 From: Kristin Gabmoa MD PCP: Care Physician,No Primary Status:ADM IN Location: [place] [address] Providers Date of Admission: 05/06/25 Primary Care [...] appointment for an incision check in 1-2 [id number]. You will need a post check in [...] 1RF oxycodone 5 (more content not included)... [facility] 05-07-2025 Progress note Note Date/Time May 07, 2025 8:54 am [facility] Medical Records Department [address] [place] [address] Progress Note - OBGYN 05/07/25 0852 MR#: [id number] Acct: [id number] Name: NENO CLAIRELAWRENCE TUTTLE Rep #:[id number] : 2000 25 From: Sherry Morales DO PCP: Care Physician,No Primary Status :ADM IN Location: [id number] Subjective Subjective Patient doing well. Having some [...] Cosigner Signature (if applicable): CC: ~ Signed [facility] Work Phone: 1(163) 188-674306-16-2025 Progress note [facility] Medical Records Department [address] [place] [address] Progress Note - OBGYN 05/07/25 0852 MR#: [id number] Acct: [id number] Name: LAWRENCE ANDERS Rep #:[id number] : 2000 25 From: Sherry Morales DO PCP: Care Physician,No Primary Status :ADM IN Location: [id number] Subjective Subjective Patient doing well. Having some [...] Cosigner Signature (if applicable): CC: ~ Signed [facility]06-15-2025 Progress note Author Ekaterina Patricia [facility] Note Date/Time May 06, 2025 9:06 am [facility] Medical Records Department [address] [place] [address] Progress Note - OBGYN 05/06/25 0901 MR#: [id number] Acct: [id number] Name: LAWRENCE ANDERS Rep #:[id number] : 2000 25 From: Ekaterina QUINTERO PCP: Care Physician,No Primary Status :ADM IN Location: [place] [id number] Subjective Subjective On left side pushing in [...] % (Auto) 64.5, Lymph % (Auto) 24.8, [place] % (Auto) 6.9, Eos % (Auto) 1.6, [...] Clarity Clear, Urine pH 7.0, Ur Specific [place] 1.005, Urine Protein 30 H, Urine Glucose [...] Cosigner Signature (if applicable): CC: ~ Signed [facility] Work Phone: 1(291) 584-983506-15-2025 Procedure note [facility] Medical Records Department [address] [place] [address] Operative Report 05/06/25 1021 MR#: [id number] Acct: [id number] Name: NENO CLAIRELAWRENCE MORSE Rep #:[id number] : 2000 25 From: Elvia Tang MD PCP: Care Physician,No Primary Status :ADM IN Location: [address] Maternal Data Information Gestational age: 40.5 [...] (5 minute): 9 Delayed Cord Clamping: Yes 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 Sheet Folder: Gita Arauz Tasks completed by wet process assistant head miller: Opening & closing, Dissecting tissue and Retracting [...] MD; No Primary Care Physician ~* Signed [facility]06-15-2025 Progress note Author Ekaterina Patricia [facility] Note Date/Time May 06, 2025 8:15 am [facility] Medical Records Department [address] [place] [address] Progress Note - OBGYN 05/06/25 0810 MR#: [id number] Acct: [id number] Name: NENO CLAIRELAWRENCE TUTTLE Rep #:[id number] : 2000 25 From: Ekaterina QUINTERO PCP: Care Physician,No Primary Status :ADM IN Location: [id number] Subjective Subjective On hands and knees in [...] % (Auto) 64.5, Lymph % (Auto) 24.8, [place] % (Auto) 6.9, Eos % (Auto) 1.6, [...] Clarity Clear, Urine pH 7.0, Ur Specific B[place] 1.005, Urine Protein 30 H, Urine Glucose [...] Cosigner Signature (if applicable): CC: ~ Signed [facility] Work Phone: 1(286) 783-245906-15-2025 Progress note [facility] Medical Records Department [address] [place] [address] Progress Note - OBGYN 05/06/25 0901 MR#: [id number] Acct: [id number] Name: LAWRENCE ANDERS Rep #:[id number] : 2000 25 From: Ekaterina QUINTERO PCP: Care Physician,No Primary Status :ADM IN Location: SM527-7 Subjective Subjective On left side pushing in [...] % (Auto) 64.5, Lymph % (Auto) 24.8, [place] % (Auto) 6.9, Eos % (Auto) 1.6, [...] Clarity Clear, Urine pH 7.0, Ur Specific B[place] 1.005, Urine Protein 30 H, Urine Glucose [...] Cosigner Signature (if applicable): CC: ~ Signed [facility]06-15-2025 Progress note [facility] Medical Records Department [address] [place] [address] Progress Note - OBGYN 05/06/25 0810 MR#: [id number] Acct: [id number] Name: LAWRENCE ANDERS Rep #:[id number] : 2000 25 From: Ekaterina QUINTERO PCP: Care Physician,No Primary Status :ADM IN Location: [id number] Subjective Subjective On hands and knees in [...] % (Auto) 64.5, Lymph % (Auto) 24.8, [place] % (Auto) 6.9, Eos % (Auto) 1.6, [...] Clarity Clear, Urine pH 7.0, Ur Specific B[place] 1.005, Urine Protein 30 H, Urine Glucose [...] Cosigner Signature (if applicable): CC: ~ Signed [facility]06-15-2025 History and physical note Author Elvia Nichole [facility] [place] [facility] Note Date/Time May 06, 2025 3:15 am [facility] Medical Records Department [address] [place] [address] H&P Exam - RECLAIMER 05/06/25 0306 MR#: [id number] Acct: [id number] Name: LAWRENCE ANDERS Rep #:[id number] : 2000 25 From: Elviatanner Tang MD PCP: Care Physician,No Primary Status :ADM IN Location: LT065-2 HPI - General General Date of Admission: 05/06/25 HPI Narrative LAWRENCE RANGEL, is a 25 F @ 40.5 weeks with limited PNC, [facility] approximately 5 times - did have lab work and Anatomy us done there- was seen earlier in day for ctx- told she was in early labor and to go [facility] as they have more services for [...] Abrams MD; No Primary Care Physician~ Signed [facility] Work Phone: 1(853) 520-363706-15-2025 Evaluation note* Diagnosis Onset Date Resolution Status [...] heart deceleration acute May 06, 2025 2:35am [facility] Work Phone: 1(242) 627-132906-15-2025 History and physical note [facility] Medical Records Department [address] [place] [address] H&P Exam - RECLAIMER 05/06/25 0306 MR#: [id number] Acct: [id number] Name: LAWRENCE ANDERS Rep #:[id number] : 2000 25 From: Elvia Tang MD PCP: Care Physician,No Primary Status :ADM IN Location: [place] 035714-1 HPI - General General Date of Admission: 05/06/25 HPI Narrative LAWRENCE RANGEL, is a 25 F @ 40.5 weeks with limited PNC, [facility] approximately 5 times - did have lab work and Anatomy us done there- was seen earlier in day for ctx- told she was in early labor and to go [facility] as they have more services for [...] Abrams MD; No Primary Care Physician~ [facility] Author Kristin Gamboa [facility] Note Date/Time May 08, 2025 12:2 4pm [facility] Medical Records Department [address] [place] [address] Discharge Summary 05/08/25 1216 MR#: [id number] Acct: [id number] Name: NENO CLAIRELAWRENCE TUTTLE Rep #:[id number] : 2000 25 From: Kristin Gamboa MD PCP: Care Physician,No Primary Status :ADM IN Location: LC640-1 Providers Date of Admission: 05/06/25 Primary Care [...] appointment for an incision check in 1-2 [id number]. You will need a post check in [...] Your Visit: Labor and delivery Attending Provider: Eliva Abrams Primary Care Provider: Care Physician,No Primary [...] Gamboa MD; No Primary Care Physician~ Signed [facility] Work Phone: Reason for referral (narrative)No reason for referral information availableWHolmes [facility] Work Phone: Chief Complaint and Reason [...] Do you have a Healthcare Power of Pediatric Physician? No May 06, 2025 2:54am Summary Purpose [...] section and content) DATE CREATED AUTHOR 06/21/2025 [facility] FOR RECORDS PERTAINING TO PATIENTS [...] BE BASED ON THE PRIMARY CLINICAL RECORDS. [employer] [facility]. provides no warranty or guarantee of the accuracy or completeness of information in this document.
[2025-11-05 02:14] LABS: Color, Urine Straw (Yellow); Glucose, Dipstick Normal (Normal); Ketone-Dipstick Negative (Negative); Leukocyte Esterase-Dipstick Negative /ul (Negative); Mucous, Urine 0 SEEN /hpf (<or=2+); Nitrite-Dipstick Negative (Negative); Occult Blood-Urine Negative /ul (Negative); Protein-Dipstick Negative (Negative); Red Blood Cells-Urine 0 SEEN /hpf (0-5); Specific Gravity, Urine 1.010 (1.002-1.030); Urine Bilirubin Dipstick Negative (Negative)
[2025-11-05 02:22] LABS: Squamous Epithelial Cells - UA 0-5 SEEN /hpf (5-10)
[2025-11-05 02:36] LABS: Ferritin 4 ng/mL (22-378); Iron 23 ug/dL (50-170); Iron Binding Capacity,Total 445 ug/dL (250-450); Iron Binding Capacity,Unsat 422 ug/dL (228-428); Magnesium 2.0 mg/dL (1.5-2.2)
[2025-11-05] MEDS: 0.9% Normal Saline (1000mL) 1,000 ML 125 ML IV (03:16)
[2025-11-05] MEDS: Sodium Ferric Gluconat/Sucrose 250 MG in 0.9% Normal Saline (250mL Bag) 250 ML 135 MG IV (03:17)
[2025-11-05] MEDS: Piperacil/Tazobactam 3.375 GM in 0.9% Normal Saline (50mL MB+) 50 ML IV ×3 (03:41→22:52)
[2025-11-05] MEDS: 0.9% Saline Lock 10 ML Syringe IV (05:48)
[2025-11-05 06:40] LABS: Hematocrit 27.3 % (37-47); Hemoglobin 7.3 g/dL (12.0-15.0); Immature Granulocytes Count 0.020 X10^3/uL (0.0-0.0); Mean Corp Hgb Conc 26.7 g/dL (32-36); Mean Corpuscular Volume 61.1 fL (81-99); Mean Platelet Vol. 9.0 fl (6.2-12.0); NRBC Flagged by Analyzer 0 % (0-5); POSITIVE MORPHOLOGY YES; Platelet Count 535 K/mm3 (150-450); RBC Distribution Width CV 20.5 % (11.6-14.6); RBC Distribution Width SD 43.4 fl (35.1-43.9); Red Blood Count 4.47 M/mm3 (4.2-5.4); White Blood Count 7.2 K/mm3 (4.4-11.0)
[2025-11-05 06:42] LABS: Differential Indicated SCAN CRITERIA MET
[2025-11-05 07:03] LABS: AST(SGOT) 107 U/L (<=31); Alanine Aminotransfer ALT/SGPT 71 U/L (<=34); Albumin, Serum 4.1 g/dL (3.5-5.0); Alkaline Phosphatase 96 U/L (35-104); Anion Gap 9 (5-15); BUN 8 mg/dL (4-19); BUN/Creat Ratio 15.3 RATIO (10-20); Calcium,Total 7.7 mg/dL (7.6-11.0); Carbon Dioxide 19.0 mmol/L (21.0-32.0); Chloride 109 mmol/L (98-108); Estimated Creatinine Clearance 109.56 ml/min (50-250); Globulin 2.3 g/dL (2.2-4.2); Glucose 106 mg/dL (70-99); Potassium 3.6 mmol/L (3.3-5.1)
[2025-11-05 07:09] LABS: Anisocytosis RARE; Hypochromasia 1+
[2025-11-05] MEDS: Pantoprazole Sodium 40 MG in 0.9% Normal Saline (100mL MB+) 100 ML 330 MG IV ×2 (09:28→22:05)
--- NOTE | 2025-11-05 09:54 | NM_ITS ---
PROCEDURE: HEPATOBILLIARY IMAGING 11/05/2025 REASON FOR EXAM: CONCERN FOR ACUTE CHOLECYSTITIS TECHNIQUE: Procedure Code: NMHIDA Modality: NM Procedure: HEPATOBILLIARY IMAGING Intravenous Choletec with planar imaging of the abdomen. RADIOPHARMACEUTICAL: Intravenous administration of 6 mCi technetium 99 M mebrofenin. COMPARISON: Ultrasound examination of 11/05/2025 FINDINGS: Satisfactory hepatic uptake and clearance is seen. Small bowel activity is seen by 16 minutes. Nonvisualization of the gallbladder is noted through the 120 minute film. NM/Hepatobilliary Imaging IMPRESSION: 1. Nonvisualized gallbladder. Given the sonographic findings, specifically the positive sonographic Tejeda's sign, this is concerning for the presence of acute cholecystitis. 2. No evidence of common duct obstruction. Reading Location: [place] [address]
--- NOTE | 2025-11-05 11:30 | CASEMGMT ---
TRICIA TAMEZ Assessment Face to Face with patient for initial transition planning/care coordination assessment. Pt is currently off of the floor getting a scan. Pt's at the bedside and willing to assist. Care providers, pharmacy, and demographics verified. Admitting dx: ABD Pain PCP: No PCP. Provider list given and encouraged establishment Specialists: Denies Preferred Pharmacy: [facility] Insurance: SP. George states that the pt has a hx with [facility] and that she needs to apply again. Notified the that Araceli from [facility] will be by to talk with the pt about this. SW also provided further resources. Prescription Benefit: None at this time, CM to follow LNOK: George (H) Living Arrangements: Pt lives with her and x2 BECKI with a 6 month old Baby in a 2 story home with 3 steps to enter ADLs/IADLs: Indep. 6-Click score is 24 Transportation: DME: Denies HHC/SNF: Denies Pt?s goal: Home Plan: Anticipate DC home with family once medically ready. Follow for Rx costs. George denies any further questions or concerns. Report given to SORAIDA CLARKE CM. Andrea Del Real RN, CM
--- NOTE | 2025-11-05 11:41 | CASEMGMT ---
Social Work- ERIC collaborated with Maile, [employer], who is seeing pt for self pay status. Maile will follow up with [facility] as appropriate. ERIC provided uzbek translated printables for [facility], [place], [facility], and medication resource assistance. ERIC remains available to follow for additional needs. KAIT Dorsey
--- NOTE | 2025-11-05 15:49 | CON.PCM.SX_ITS ---
HPI Consult Data Date of Consult: 11/05/25 HPI Narrative Reason for Consultation: Abdominal pain HPI Narrative: LAWRENCE RANGEL, is a 25 F who presented to the [facility] emergency department on 11/05/2025 with complaints of epigastric abdominal pain. Patient is Hebrew speaking. Her was able to provide much of the history as well as translate our conversation. Patient states that last evening she was drinking orange juice and initially this seemed to create a burning sensation as it passed down the esophagus. Shortly thereafter she had epigastric pain which persisted. Patient denied any nausea or vomiting. Nor did she have any diarrhea. No fevers or chills. She denies ever having any previous symptoms. She denies any issues with eating fatty, greasy or spicy foods. She has never been told that she has any gallbladder issues.. No history of gastritis or ulcers that she is aware of. She states that food really does not make her pain worse or better. Patient presented to the emergency room with the symptoms. She was seen evaluated by the ER staff. Her blood work was consistent with a normal white blood cell count. Her LFTs were slightly elevated. Bilirubin was normal. Patient underwent a CT scan of the abdomen pelvis which showed periportal hypodensities, containing gallbladder calculi. She also had some dilated loops of small bowel consistent with possible enteritis. She also had mild gastric pyloric and pylorus duodenal mural thickening possibly due to gastritis. On my view of her stomach, her stomach is quite distended with food material. She underwent an ultrasound that showed gallbladder sludge but no stones. The patient is a 25 y/o F w/ PMHx: Chronic microcytic anemia/Fe deficiency anemia additionally complicated by hemorrhage with associated ABLA who presents the [facility] ED on 11/15/25 with history of onsetjust prior to ED arrival on the evening prior to presentation with initially eating food which initially felt stuck, improved with fluids but following she continued to have persistent upper abdominal epigastric and right upper quadrant pain with some mild nausea secondary to the pain which was persistent and severe prompting eventual ED evaluation but denied any associated emesis or diarrhea. She noted she had leftover Percocet from 6 months prior and took this but did not have any improvement. She notes her menstrual cycles have been very heavy and long since her . She notes the pain is stabbing in nature, rates it 9/10 in severity. When asked where her pain is she points to the epigastric region however on examination her pain is more diffuse and includes the left upper and lower quadrant as well. Workup in the ED included T98.7, heart rate 58, BP 105/37, respiratory rate 16, 100% on room air, CBC with WC 6.3, hemoglobin 6.3, MCV 61.8, platelet 570 without marked shift, coags with PT 15.6 otherwise unremarkable, CMP with carbon oxide 19.6, BUN/creatinine 11/0.74, GFR 116, glucose 121, hepatic profile unremarkable, serum testing negative, CT abdomen and pelvis with IV contrast only with hepatic periportal hypodensities possibly edema, gallbladder tiny calculi with minimal marrow edema suggestive of mild cholecystitis, colonic fecal loading, fluid distention of left side abdominal jejunal loop possibly enteritis, mild gastric pylorus and pyloroduodenal mural thickening possibly gastritis, ED physician initiated 2 unit PRBC-type and cross, hemoccult negative. In the ED patient is strict 1 L normal saline, Dilaudid 1 mg IV x 1, Zofran 4 mg IV x 1, Protonix 40 mg IV x 1. [facility] Medical History Menorrhagia Iron deficiency anemia Allergy/AdvReac Type Severity Reaction Status Date / Time No Known Allergies Allergy Verified 11/04/25 23:38 Family History (Updated 11/05/25 @ 01:[address] Leticia Adan MD) Mother No problems noted. Father No problems noted. Family History no significant family his Surgical History Delivery by section Social History household members: spouse and children Smoking Status: Never smoker alcohol intake: never substance use type: does not use Lab / Micro Data 11/05/25 06:00 11/05/25 06:00 Labs: Laboratory Results - last 24 hr 11/05/25 00:00: WBC 6.3, RBC 3.95 L, Hgb 6.3 L, Hct 24.4 L, MCV 61.8 L, MCH 15.9 L, MCHC 25.8 L, RDW Std Deviation 43.5, RDW Coeff of Morena 19.9 H, Plt Count 570 H , MPV 8.7, Immature Gran % (Auto) 0.300, Neut % (Auto) 44.5 L, Lymph % (Auto) 39.0, Lynn % (Auto) 10.8 H, Eos % (Auto) 4.8, Baso % (Auto) 0.6, Absolute Neuts (auto) 2.8, Absolute Lymphs (auto) 2.45, Nucleated RBC % 0, PT 15.6 H, INR 1.2, APTT 32.2, Sodium 136, Potassium 3.6, Chloride 105, Carbon Dioxide 19.6 L, Anion Gap 12, BUN 11, Creatinine 0.74, Estim Creat Clear Calc 75.55, Est GFR (MDRD) Non-Af 116, BUN/Creatinine Ratio 14.6, Glucose 121 H, Calcium 8.2, Phosphorus 3.4, Magnesium 2.0, Iron 23 L, TIBC 445, Iron Saturation 5.1 L, Unsaturated IBC 422, Ferritin 4 L, Total Bilirubin < 0.15, Direct Bilirubin 0.10, AST 27, ALT 18, Alkaline Phosphatase 100, Total Protein 6.9, Albumin 4.1, Globulin 2.8, Lipase 50, Serum , Qual NEGATIVE 11/05/25 00:40: Blood Type O POSITIVE, Antibody Screen NEGATIVE, Crossmatch See Detail 11/05/25 02:05: Urine Color Straw, Urine Clarity Clear, Urine pH 7.0, Ur Specific [place] 1.010, Urine Protein Negative, Urine Glucose (UA) Normal, Urine Ketones Negative, Urine Occult Blood Negative, Urine Nitrite Negative, Urine Bilirubin Negative, Urine Urobilinogen Normal, Ur Leukocyte Esterase Negative, Urine RBC 0 SEEN, Urine WBC 0 SEEN, Ur Squamous Epith Cells 0-5 SEEN, Urine Bacteria 0 SEEN, Urine Mucus 0 SEEN 11/05/25 06:00: WBC 7.2, RBC 4.47, Hgb 7.3 L, Hct 27.3 L, MCV 61.1 L, MCH 16.3 L , MCHC 26.7 L, RDW Std Deviation 43.4, RDW Coeff of Morena 20.5 H, Plt Count 535 H, MPV 9.0, Immature Gran % (Auto) 0.300, Neut % (Auto) 64.2, Lymph % (Auto) 27.8, Lynn % (Auto) 5.0, Eos % (Auto) 2.4, Baso % (Auto) 0.3, Absolute Neuts (auto) 4.6, Absolute Lymphs (auto) 1.99, Nucleated RBC % 0, Hypochromasia 1+, Anisocytosis RARE, Sodium 138, Potassium 3.6, Chloride 109 H, Carbon Dioxide 19.0 L, Anion Gap 9, BUN 8, Creatinine 0.53 L, Estim Creat Clear Calc 109.56, Est GFR (MDRD) Non-Af 133, BUN/Creatinine Ratio 15.3, Glucose 106 H, Calcium 7.7, Total Bilirubin 0.30, AST 107 H, ALT 71 H, Alkaline Phosphatase 96, Total Protein 6.4, Albumin 4.1, Globulin 2.3, Albumin/Globulin Ratio 1.7 Micro: Microbiology 11/05/25 00:40 Stool Stool Occult Blood (BIBI) - Final Imaging Radiology Impression Abdomen/Pelvis CT 11/04/25 23:57 IMPRESSION: Hepatic periportal hypodensities, possibly edema. Advise clinico-laboratory correlation to exclude the possibility of hepatitis. Gall bladder tiny calculi with minimal mural edema suggesting mild cholecystitis. Colonic fecal loading. Fluid distension of left side abdominal jejunal loop, possibly enteritis. Mild gastric pylorus and pyloroduodenal mural thickening, possibly gastritis. Reading Location: [place] [address] Abdomen Ultrasound 11/05/25 01:35 IMPRESSION: Fatty infiltration of the liver. Gallbladder sludge with findings equivocal for acute cholecystitis. Further evaluation with HIDA scan may be beneficial. Reading [facility] Hepatobiliary Scan Nuclear Medicine 11/05/25 09:54 IMPRESSION: 1. Nonvisualized gallbladder. Given the sonographic findings, specifically the positive sonographic Tejeda's sign, this is concerning for the presence of acute cholecystitis. 2. No evidence of common duct obstruction. Reading Location: [place] [address]
--- NOTE | 2025-11-05 15:53 | PCM.HOSP.N ---
Hospitalist Note Patient evaluated with at bedside, language interpreter used. Patient reports pain has subsided after the morning with pain medication and lack of p.o. intake. She had right upper quadrant ultrasound that showed fatty infiltration of the liver and gallbladder sludge with findings equivocal for acute cholecystitis. Further evaluation with HIDA scan may be beneficial so this was obtained. The HIDA impression reported nonvisualized gallbladder however given sonographic findings especially the positive sonographic Tejeda sign it was certainly concerning for acute cholecystitis. Given patient's pain was right upper quadrant in nature and 3 separate tests are suggestive of possible acute cholecystitis will consult general surgery. Will continue Zosyn at this time. A.m. hemoglobin 7.3. No blood loss reported, as per H&P this is suspected to be due to heavy menstruations, if hemoglobin remained stable can likely follow-up closely with Terryn on discharge, if not may need additional evaluation while inpatient
[2025-11-05] MEDS: Senna/Docusate Sodium 1 Tablet 2 TABLET PO (22:11)
[2025-11-06 04:28] VITALS: BMI 17.9
[2025-11-06] MEDS: Piperacil/Tazobactam 3.375 GM in 0.9% Normal Saline (50mL MB+) 50 ML IV (05:02)
[2025-11-06 05:09] VITALS: BP 112/53; PULSE 54; RESP 16; TEMP 36.7; O2SAT 97
[2025-11-06 07:16] LABS: Hematocrit 33.9 % (37-47); Hemoglobin 9.8 g/dL (12.0-15.0); Immature Granulocytes Count 0.030 X10^3/uL (0.0-0.0); Mean Corp Hgb Conc 28.9 g/dL (32-36); Mean Corpuscular Volume 67.4 fL (81-99); Mean Platelet Vol. 8.6 fl (6.2-12.0); NRBC Flagged by Analyzer 0.7 % (0-5); POSITIVE MORPHOLOGY YES; Platelet Count 520 K/mm3 (150-450); RBC Distribution Width CV 26.6 % (11.6-14.6); RBC Distribution Width SD 61.6 fl (35.1-43.9); Red Blood Count 5.03 M/mm3 (4.2-5.4); White Blood Count 5.5 K/mm3 (4.4-11.0)
[2025-11-06 07:17] LABS: Differential Indicated SCAN CRITERIA MET
[2025-11-06 07:33] LABS: Anisocytosis 2+; Differential Comment SCANNED
[2025-11-06 07:46] LABS: AST(SGOT) 109 U/L (<=31); Alanine Aminotransfer ALT/SGPT 168 U/L (<=34); Albumin, Serum 4.0 g/dL (3.5-5.0); Alkaline Phosphatase 108 U/L (35-104); Anion Gap 13 (5-15); BUN 5 mg/dL (4-19); BUN/Creat Ratio 9.4 RATIO (10-20); Calcium,Total 8.6 mg/dL (7.6-11.0); Carbon Dioxide 20.0 mmol/L (21.0-32.0); Chloride 108 mmol/L (98-108); Estimated Creatinine Clearance 105.40 ml/min (50-250); Globulin 2.8 g/dL (2.2-4.2); Glucose 91 mg/dL (70-99); Potassium 3.3 mmol/L (3.3-5.1)
--- NOTE | 2025-11-06 08:31 | PN.SURG_ITS ---
Subjective Subjective Patient evaluated resting comfortably in her bed with her and baby at her bedside. Patient speaks very little Maldivian. Patient's translates for the patient. Patient is having no abdominal pain, nausea or vomiting. She seems improved today. Objective Data Objective Data Vital Signs: Vital Signs Temp Pulse Resp BP Pulse Ox O2 Del Method 98.1 F 54 L 16 112/53 L 97 Room Air 11/06/25 05:09 11/06/25 05:09 11/06/25 05:09 11/06/25 05:09 11/06/25 05:09 11/06/25 05:09 Oxygen Delivery Method Room Air Weight: 95 lb 0.308 oz Body Mass Index (BMI) 17.9 Intake & Output: Intake and Output for Last 24 Hours 11/04/25 11/05/25 11/06/25 23:59 23:59 23:59 Intake Total 3370 / 3370 200 / 200 Balance 3370 / 3370 200 / 200 Lab / Micro Data 11/06/25 06:34 11/06/25 06:34 Labs: Laboratory Results - last 24 hr 11/05/25 00:40: Crossmatch See Detail 11/06/25 06:34: WBC 5.5, RBC 5.03, Hgb 9.8 L, Hct 33.9 L, MCV 67.4 L D, MCH 19.5 L, MCHC 28.9 L D, RDW Std Deviation 61.6 H, RDW Coeff of Morena 26.6 H, Plt Count 520 H, MPV 8.6, Immature Gran % (Auto) 0.500, Neut % (Auto) 44.1 L, Lymph % (Auto) 33.0, [place] % (Auto) 13.2 H, Eos % (Auto) 8.3 H, Baso % (Auto) 0.9, Absolute Neuts (auto) 2.4, Absolute Lymphs (auto) 1.82, Nucleated RBC % 0.7, Differential Comment SCANNED, Anisocytosis 2+, Sodium 141, Potassium 3.3, Chloride 108, Carbon Dioxide 20.0 L, Anion Gap 13, BUN 5, Creatinine 0.56 L, Estim Creat Clear Calc 105.40, Est GFR (MDRD) Non-Af 131, BUN/Creatinine Ratio 9.4 L, Glucose 91, Calcium 8.6, Total Bilirubin 0.53, AST 109 H, ALT 168 H, A lkaline Phosphatase 108 H, Total Protein 6.8, Albumin 4.0, Globulin 2.8, Albumin/Globulin Ratio 1.4 Micro: Microbiology 11/05/25 00:40 Stool Stool Occult Blood (BIBI) - Final Radiography Diagnostic Testing: Radiology Impression Abdomen Ultrasound 11/05/25 01:35 IMPRESSION: Fatty infiltration of the liver. Gallbladder sludge with findings equivocal for acute cholecystitis. Further evaluation with HIDA scan may be beneficial. Reading Location: [facility] Hepatobiliary Scan Nuclear Medicine 11/05/25 09:54 IMPRESSION: 1. Nonvisualized gallbladder. Given the sonographic findings, specifically the positive sonographic Tejeda's sign, this is concerning for the presence of acute cholecystitis. 2. No evidence of common duct obstruction. Reading Location: [place] [address] Physical Exam GI GI Narrative: Abdomen- soft, nontender. Normal bowel sounds. Assessment & Plan Assessment/Plan (1) Abdominal pain: PLAN: I am following this patient in conjunction with Dr. Barrios. He will independently evaluate this patient. Labs reviewed. Hgb increasing. Liver enzymes bumped up today. Patient seems improved today as she is having no abdominal pain. May increase diet to see if patient tolerates No surgical intervention being recommended at this time If right upper quadrant abdominal pain returns, plan for a cholecystectomy at that time We will continue to monitor this patient Charges/Coding Visit Charges Inpatient E&M: 24190 Subs Hosp L2
[2025-11-06] MEDS: Pantoprazole Sodium 40 MG in 0.9% Normal Saline (100mL MB+) 100 ML 330 MG IV (08:58)
[2025-11-06] MEDS: Senna/Docusate Sodium 1 Tablet 2 TABLET PO (08:58)
[2025-11-06] MEDS: Ensure Plus High Protein 120 ML LIQUID PO (09:03)
[2025-11-06 09:26] VITALS: BP 87/44; PULSE 54; RESP 16; TEMP 36.8; O2SAT 98
[2025-11-06 09:28] VITALS: RESP 18
[2025-11-06 12:00] VITALS: BP 107/52; PULSE 50; RESP 16; TEMP 36.3; O2SAT 98
[2025-11-06] MEDS: 0.9% Saline Lock 10 ML Syringe IV (13:38)
[2025-11-06] MEDS: Sodium Ferric Gluconat/Sucrose 250 MG in 0.9% Normal Saline (250mL Bag) 250 ML 135 MG IV (13:38)
--- NOTE | 2025-11-06 16:12 | DCINST_ITS ---
Discharge Instructions DC O2, CPAP, BIPAP needs Home O2 Discharge instructions: No Dressing / Incision Discharge Activity: - (Increase activity as tolerated) Follow Up Care Test Results: Test results from this visit will be discussed in further detail at your follow- up appointment, if applicable. Discharge Plan Admission Admit Date/Time: 11/05/25 01:32 Primary Reason for Your Visit: Abdominal pain Attending Provider: Vanesa Figueroa Primary Care Provider: Care Physician,No Primary Consulting Providers: Leticia Adan; Jose Barrios Discharge Orders/Prescriptions Referrals / Follow Up: Care Physician,No Primary [Primary Care Provider, Medical]
--- NOTE | 2025-11-06 16:12 | PCM.DC ---
Discharge Instructions DC O2, CPAP, BIPAP needs Home O2 Discharge instructions: No Dressing / Incision Discharge Activity: - (Increase activity as tolerated) Follow Up Care Test Results: Test results from this visit will be discussed in further detail at your follow-up appointment, if applicable. Discharge Plan Admission Admit Date/Time: 11/05/25 01:32 Primary Reason for Your Visit: Abdominal pain Attending Provider: Vanesa Figueroa Primary Care Provider: Care Physician,No Primary Consulting Providers: Leticia Adan; Jose Barrios Instructions Patient Instructions: ED GERD (Adult) Additional Instructions / Restrictions: DISCHARGE INSTRUCTIONS PLEASE READ *Please take this with you to your next doctors appointment* - You will be discharged on pantoprazole (Protonix) as your pain improved after this was started and symptoms may be related to heartburn or stomach irritation. This was sent to [facility] on [facility] in [place], [place] -There is still the possibility that the gallbladder could have been involved. If symptoms return please call Dr. Barrios?s office, general surgery, to schedule an appointment for further evaluation -You came in with low blood counts, we suspect this is related to heavy menstrual bleeding. Please follow-up with your OB/supervising chef on discharge as discussed. - You will be discharged on an iron supplement as well - You will likely need repeat liver function tests on an outpatient basis with further workup if needed. If you do not have a primary care physician it is strongly recommended that you establish with one -If you do not have a primary care physician of list of local primary care physicians can be provided for you upon discharge -For any concerning signs or symptoms please call 911 or proceed to the nearest emergency department Discharge Orders/Prescriptions Prescriptions: New ferrous sulfate [FeroSul] 325 mg (65 mg iron) Tablet 325 mg PO Q48H 30 Days Qty: 15 0RF pantoprazole [Protonix] 40 mg tablet,delayed release (DR/EC) 40 mg PO DAILY Qty: 30 0RF Referrals / Follow Up: Jose Barrios MD [Med Staff - Active Staff, General Surgery] Referral Note: There is still the possibility that the gallbladder could have been involved. If symptoms return please call Dr. Eisenberg office, general surgery, to schedule an appointment for further evaluation Care Physician,No Primary [Primary Care Provider, Medical] Referral Note: -If you do not have a primary care physician of list of local primary care physicians can be provided for you upon discharge. Please ask for this list prior to discharge Disposition Disposition (needs filled in before D/C Order can be placed): Home, Self Care
--- NOTE | 2025-11-06 16:28 | PCM.DC.SUM ---
Providers Date of Admission: 11/05/25 Date of Discharge: 11/06/25 Primary Care Physician: Janelle Primary Care Phys Consultations 11/05/25 12:33 Consult: General Surgery Routine Consulting Provider: Jose Barrios Reason for Consult: concern for acute cholecystitis EMERGENT Consult: No MD Notified: Yes Date Notified: 11/05/25 Time Notified: 12:34 Method of Notification: Text Reason For Visit: ABDOMINAL PAIN Diagnosis Discharge Diagnosis (1) Abdominal pain: Status: Acute Code(s): R10.9 - Unspecified abdominal pain (2) Anemia: Status: Acute Code(s): D64.9 - Anemia, unspecified (3) Elevated liver enzymes: Status: Acute Code(s): R74.8 - Abnormal levels of other serum enzymes Plan #Abdominal pain- resolved #Anemia suspected d/t menstrual losses #Mild elevated LFTs Medications at Discharge Home Medications ferrous sulfate 325 mg (65 mg iron) tablet (FeroSul) 325 mg PO Q48H 30 days #15 tabs 11/06/25 pantoprazole 40 mg tablet,delayed release (Protonix) 40 mg PO DAILY #30 tabs 11/06/25 Hospital Course Summary of Care Provided Minutes Spent on Discharge: 33 Hospital Course: 25-year-old female with history of anemia after section who presented to [facility] ED early in the morning 11/05/2025 due to some epigastric and right upper quadrant abdominal pain and mild nausea. Did note that since giving her menstrual cycles have been very long and very heavy. In the ED heart rate 58, blood pressure 105/37, respiratory rate 16 and pulse ox 100% on room air. White count 6.3 with a hemoglobin noted of 6.3 and MCV 61.8, platelet count 570. CT abdomen pelvis with IV contrast showed hepatic periportal hypodensities possibly edema, gallbladder with tiny calculi and some minimal edema suggestive of mild cholecystitis. Also noted colonic fecal loading, possible enteritis and possible gastritis. Patient was typed and crossed for 2 units of blood and hospitalist contacted for admission. She was started on Protonix and right upper quadrant ultrasound ordered to better assess the gallbladder and if this was the cause of her symptoms. She had right upper quadrant ultrasound that showed fatty infiltration of the liver and gallbladder sludge with findings equivocal for acute cholecystitis. Further evaluation with HIDA scan may be beneficial so this was obtained. The HIDA impression reported nonvisualized gallbladder however given sonographic findings especially the positive sonographic Tejeda sign it was certainly concerning for acute cholecystitis. Given patient's pain was right upper quadrant in nature and 3 separate tests are suggestive of possible acute cholecystitis General Surgery was consulted. Symptoms completely resolved with PPI and it was felt this was likely not gallbladder however if patient has symptoms that return she can follow-up in the office. Hemoglobin did respond to the packed red blood cells and hemoglobin on the a.m. of discharge was 9.8, she was also given IV iron and discussed with her through [employer] that she needs to follow-up with gynecology. Patient had minimally elevated liver enzymes with AST of 107 and ALT of 71 and alk phos of 96 on 11/05/2025, 11/06/2025 AST 109, ALT 160 and alk phos 108. Again patient completely asymptomatic at this time and reports feeling better. Does have hepatitis panel that was sent off an abundance of caution given CT scan and liver function but no gallbladder intervention planned given resolution of symptoms and suspected that this is not primary gallbladder in etiology. There may have been a component of gastritis and patient improved with the Protonix so we will discharge her on this. Discussed keeping patient for 1 more day to make sure she continues to tolerate diet to monitor everything but patient expressed strong desire for discharge home. Given she is asymptomatic and feeling well do think this is reasonable. No new or acute complaints on the day of discharge. Discharge instructions as follows: - You will be discharged on pantoprazole (Protonix) as your pain improved after this was started and symptoms may be related to heartburn. This was sent to [facility] on [address] in [place], [place] -There is still the possibility that the gallbladder could have been involved. If symptoms return please call Dr. Barrios?s office, general surgery, to schedule an appointment for further evaluation -You came in with low blood counts, we suspect this is related to heavy menstrual bleeding. Please follow-up with your OB/material loader on discharge as discussed. - You will be discharged on an iron supplement as well - You will likely need repeat liver function tests on an outpatient basis. If you do not have a primary care physician it is recommended that you establish with one Physical Exam Narrative General: Alert, oriented, no apparent distress HEENT: Atraumatic, normocephalic Eyes: extraocular movements grossly intact Neck: Supple Respiratory: normal respiratory effort Cardiovascular: no edema appreciated GI: nondistended Extremities: Moving all extremities Neuro: No overt focal neurological deficits Psych: Cooperative Weight / BMI Weight Weight: 43.1 kg Body Mass Index (BMI) 17.9 ABG / Lab / Microbiology Data 11/06/25 06:34 11/06/25 06:34 Laboratory: Laboratory Results - last 24 hr 11/06/25 06:34: WBC 5.5, RBC 5.03, Hgb 9.8 L, Hct 33.9 L, MCV 67.4 L D, MCH 19.5 L, MCHC 28.9 L D, RDW Std Deviation 61.6 H, RDW Coeff of Morena 26.6 H, Plt Count 520 H, MPV 8.6, Immature Gran % (Auto) 0.500, Neut % (Auto) 44.1 L, Lymph % (Auto) 33.0, Ford % (Auto) 13.2 H, Eos % (Auto) 8.3 H, Baso % (Auto) 0.9, Absolute Neuts (auto) 2.4, Absolute Lymphs (auto) 1.82, Nucleated RBC % 0.7, Differential Comment SCANNED, Anisocytosis 2+, Sodium 141, Potassium 3.3, Chloride 108, Carbon Dioxide 20.0 L, Anion Gap 13, BUN 5, Creatinine 0.56 L, Estim Creat Clear Calc 105.40, Est GFR (MDRD) Non-Af 131, BUN/Creatinine Ratio 9.4 L, Glucose 91, Calcium 8.6, Total Bilirubin 0.53, AST 109 H, ALT 168 H, Alkaline Phosphatase 108 H, Total Protein 6.8, Albumin 4.0, Globulin 2.8, Albumin/Globulin Ratio 1.4 Microbiology: Microbiology 11/05/25 00:40 Stool Stool Occult Blood (BIBI) - Final D/C Instructions DC O2, CPAP, BIPAP Needs Home O2 Discharge instructions: No Meaningful Use Info Meaningful Use Meaningful Use Diagnoses (Choose all that apply): None applicable Discharge Plan Admission Admit Date/Time: 11/05/25 01:32 Primary Reason for Your Visit: Abdominal pain Attending Provider: Vanesa Figueroa Primary Care Provider: Care Physician,No Primary Consulting Providers: Leticia Aadn; Jose Barrios Instructions Patient Instructions: ED GERD (Adult) Additional Instructions / Restrictions: DISCHARGE INSTRUCTIONS PLEASE READ *Please take this with you to your next doctors appointment* - You will be discharged on pantoprazole (Protonix) as your pain improved after this was started and symptoms may be related to heartburn or stomach irritation. This was sent to [facility] in [place], [place] -There is still the possibility that the gallbladder could have been involved. If symptoms return please call Dr. Barrios?s office, general surgery, to schedule an appointment for further evaluation -You came in with low blood counts, we suspect this is related to heavy menstrual bleeding. Please follow-up with your OB/material loader on discharge as discussed. - You will be discharged on an iron supplement as well - You will likely need repeat liver function tests on an outpatient basis with further workup if needed. If you do not have a primary care physician it is strongly recommended that you establish with one -If you do not have a primary care physician of list of local primary care physicians can be provided for you upon discharge -For any concerning signs or symptoms please call 911 or proceed to the nearest emergency department Discharge Orders/Prescriptions Prescriptions: New ferrous sulfate [FeroSul] 325 mg (65 mg iron) Tablet 325 mg PO Q48H 30 Days Qty: 15 0RF pantoprazole [Protonix] 40 mg tablet,delayed release (DR/EC) 40 mg PO DAILY Qty: 30 0RF Referrals / Follow Up: Jose Barrios MD [Med Staff - Active Staff, General Surgery] Referral Note: There is still the possibility that the gallbladder could have been involved. If symptoms return please call Dr. Eisenberg office, general surgery, to schedule an appointment for further evaluation Care Physician,No Primary [Primary Care Provider, Medical] Referral Note: -If you do not have a primary care physician of list of local primary care physicians can be provided for you upon discharge. Please ask for this list prior to discharge Disposition Disposition (needs filled in before D/C Order can be placed): Home, Self Care Charges/Coding Visit Charges Inpatient E&M: 88249 Disch Hosp >30min
[2025-11-06 17:19] VITALS: BP 105/64; PULSE 54; RESP 18; TEMP 36.7; O2SAT 98
[2025-11-07 04:07] LABS: HEPATITIS B SURFACE AG Negative (Negative); Hep C Antibodies Non Reactive (Non Reactive)
== END 2025-11-06 17:28 | disposition home or self-care (01) | DRG 392 ==
LOC: ED 11-05 01:38 → MS3 11-05 01:46
PROVIDERS: Admitting Provider Family Medicine; Emergency Provider Emergency Medicine; Visit Provider Internal Medicine
DX: R10.13 Epigastric pain (principal); D50.9 Iron deficiency anemia, unspecified; K76.0 Fatty (change of) liver, not elsewhere classified; K29.70 Gastritis, unspecified, without bleeding; K82.8 Other specified diseases of gallbladder; K21.9 Gastro-esophageal reflux disease without esophagitis; N92.0 Excessive and frequent menstruation with regular cycle; R74.8 Abnormal levels of other serum enzymes; Z60.3 Acculturation difficulty
CPT/HCPCS: 36415; 74177; 76705; 78226; 80048; 80053; 80074; 80076; 81001; 82274; 82728; 83540; 83550; 83690; 83735; 84100; 84703; 85025; 85610; 85730; 86850; 86900; 86901; 94668; 97802; 99285; A9537; P9016; Q9967; A4216; J2405; J2916